=== PATIENT | female | born 1950 | race Caucasian/White ===

== ENCOUNTER 2018-04-14 05:18 | Outpatient (CLI) | payer BC, SELFPAY ==
--- NOTE | 2018-04-14 13:54 | DI.MAMMO_ITS ---
SYMPTOM/DIAGNOSIS: SCREENING, H/O MALIGNANT NEOPLASM OF BREAST, Z85.3 MAMMOGRAMS: Mammograms were interpreted according to the usual protocol including computer analysis with CAD system, tomosynthesis and C view imaging. The breasts are of moderate density. Note is made of a prior right lumpectomy. No mass or clumped microcalcification is identified in either breast. No change in appearance in comparison with examinations including March 2017. CONCLUSION: No specific evidence of malignancy at this time. Routine screening examinations are suggested at yearly intervals due to the history of breast carcinoma. Category 1, breast density category B. MQSA ASSESSMENT OF FINDINGS: Negative. Category 1. Patient will receive a letter notifying them of these results. BI-RADS category B. There are scattered areas of fibroglandular density.
== END 2018-04-14 05:38 ==
PROVIDERS: PCP Internal Medicine; Visit Provider Internal Medicine
DX: Z12.31 Encounter for screening mammogram for malignant neoplasm of breast (principal); Z85.3 Personal history of malignant neoplasm of breast
CPT/HCPCS: 77063; 77067

== ENCOUNTER 2018-07-28 11:43 | Outpatient (CLI) | payer BC, SELFPAY ==
[2018-07-28 13:09] LABS: Abs Immature Grans 0.01 k/cumm (0.0-0.09); Absolute Basophil Count 0.02 k/cumm (0.0-0.2); Absolute Eosinophil Count 0.23 k/cumm (0.0-0.7); Absolute Lymphocyte Count 0.99 k/cumm (1.2-3.4); Absolute Monocyte Count 0.45 k/cumm (0.11-0.7); Absolute Neutrophil Count 2.59 k/cumm (1.2-6.7); Basophils % 0.5; Eosinophils % 5.4; HCT 40.6 % (36.0-46.0); HGB 13.4 g/dL (12.0-15.5); Immature Grans % 0.2; Lymphocytes % 23.1; Mean Corpuscular Hemoglobin 33.1 pg (27.0-33.0); Mean Corpuscular Volume 100.2 fL (80-95); Mean Platelet Volume 9.6 fL (8.0-11.0); Monocytes % 10.5; Neutrophils % 60.3; Platelet Count 168 x1000/uL (130-400); RBC 4.05 m/cumm (4.00-5.20); RBC Distribution Width 13.3 % (11.7-14.6); White Blood Cell Count 4.29 k/cumm (4.4-10.8)
[2018-07-28 14:14] LABS: ALT 25 U/L (12-78); AST 19 U/L (15-37); Albumin 3.7 g/dL (3.4-5.0); Alkaline Phosphatase 123 U/L (46-116); Anion Gap 8.5 mmol/L (3-11); BUN 41 mg/dL (7-18); Bilirubin, Total 0.5 mg/dL (0.2-1.0); CO2 29.5 mmol/L (21.0-32.0); Calcium 9.6 mg/dL (8.5-10.1); Chloride 102 mmol/L (98-107); Estimated GFR 54.97 (mL/min/1.73m2); Glucose 93 mg/dL (70-100); Potassium 4.5 mmol/L (3.5-5.1); Sodium 140 mmol/L (136-145); Total Protein 6.8 g/dL (6.4-8.2)
[2018-07-28 14:30] LABS: Cholesterol 151 mg/dL (50-200); HDL Cholesterol 45 mg/dL (40-60); LDL CHOLESTEROL 88 mg/dL (<100); Triglyceride 92 mg/dL (30-150)
[2018-07-28 14:31] LABS: Hemoglobin A1C 5.9 % (4.5-6.2)
== END 2018-07-28 12:03 ==
PROVIDERS: Student in an Organized Health Care Education/Training Program; PCP Internal Medicine; Visit Provider Internal Medicine
DX: E11.9 Type 2 diabetes mellitus without complications (principal); I10 Essential (primary) hypertension; E78.5 Hyperlipidemia, unspecified; I25.10 Atherosclerotic heart disease of native coronary artery without angina pectoris
CPT/HCPCS: 36415; 80053; 80061; 83721; 83036; 85025

== ENCOUNTER 2018-11-11 00:41 | Outpatient (CLI) | payer BC, SELFPAY ==
--- NOTE | 2018-11-11 11:24 | DI.RAD_ITS ---
SYMPTOM/DIAGNOSIS: PAIN RT SHOULDER, R52 RIGHT SHOULDER: Five views. Comparison chest x-ray is 03/27/17 There is marked narrowing of the glenohumeral joint. Subchondral sclerosis and spurring is also noted at this level. There ae mild hypertrophic changes seen at the acromioclavicular joint. Soft tissue calcification is seen adjacent to the greater tuberosity consistent with calcific tendinitis. There are several calcific ossific densities inferior to the coracoid process. These may represent loose bodies. No acute fracture or dislocation is seen. 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
== END 2018-11-11 01:01 ==
PROVIDERS: PCP Internal Medicine; Visit Provider Internal Medicine
DX: M25.511 Pain in right shoulder (principal); M19.011 Primary osteoarthritis, right shoulder; M75.81 Other shoulder lesions, right shoulder
CPT/HCPCS: 73030

== ENCOUNTER 2018-12-08 00:46 | Outpatient (CLI) | payer BC, SELFPAY ==
--- NOTE | 2018-12-08 06:50 | MERGEMPI_ITS ---
*[facility]* *[facility]* [address] [place] [address] Myocardial Perfusion Imaging - SPECT Tim protocol Date of study: 12/08/2018 *PATIENT PRESENTATION* Height: 165.1cm (65in) Blood Pressure: Weight: 90.9kg (200lb) BSA: 2.08m^2 Ordering physician: Marcelo Francisco Impressions: - Test changed to pharmacological test because target heart rate was not achieved. - Study suggests small to moderate myocardial infarction, with minimal overall ischemia in the territory of the left anterior descending coronary artery. - Low risk of cardiac events. Summary: 1. Myocardial perfusion imaging: There is a moderate sized, moderately intense, fixed defect involving the apical anterior, apical lateral, and apical wall(s). This suggests moderate myocardial infarction in the distribution of the left anterior descending coronary artery. Overall ischemia: minimal. 2. The calculated left ventricular ejection fraction after stress: 49%. LV global systolic function is mildly reduced. Diffuse left ventricular regional motion abnormalities. 3. Stress ECG conclusions: The stress ECG is negative to less than 85% MPHR. 4. Stress: The target heart rate was not achieved. There is a normal resting blood pressure with an appropriate response to stress. Stress-induced atypical chest pain. Exercise capacity is average for age. 5. Treadmill exercise testing was performed using the Tim protocol. The patient exercised for 5 min 49 sec, to protocol stage 2, to a maximal work rate of 7mets. Exercise was terminated due to bilateral arm discomfort. Indication: R07.9, Appropriate Use Criteria: A (Appropriate). History: REASON FOR VISIT: PT HAS A HISTORY OF ACUTE UT OF INFERIOR WALL. PT REPORTS SHE HAD A UT IN 1999 AND AGAIN IN OCTOBER 2017. SHE STATES SHE HAS 3 CARDIAC STENTS AND HAS HAD AN ANGIOPLASTY. SHE STATES SHE IS HERE TODAY PER DR FRANCISCO BECAUSE OF SYMPTOMS OF BURNING CHEST PAINS ACROSS HER CHEST AND SHOULDERS AFTER WALKING FOR ABOUT 5 MINUTES ASSOCIATED WITH LIGHT HEADEDNESS AND VISION CHANGES. SYMPTOMS WITH SUBSIDE WITH REST. Risk factors: Family history of coronary artery disease. Hypertension. Diabetes mellitus. Obesity. Dyslipidemia. ALLERGIES: ADHESIVE. CODEINE. YENIFER INHIBITORS. MEDICATIONS: VITAMIN B COMPLEX 1 TAB DAILY. OMEPRAZOLE 40 MG DAILY PRN. OMEGA-3 FATTY ACIDS 1,000 MG DAILY. NAPROXEN 500 MG DAILY PRN. MVI/IRON MINERALS 1 TAB DAILY. METOPROLOL TARTRATE 12.5 MG BID. METFORMIN 500 MG DAILY. MAGNESIUM OXIDE 1,000 MG DAILY. LOSARTAN 25 MG DAILY. ISOSORBIDE MONONITRATE 30 MG DAILY. COLCHICINE 0.6 - 1.2 MG DIRECTED. CLOPIDOGREL 75 MG DAILY. CLOBETASOL 1 TOPICAL IDA DAILY. CITALOPRAM 20 MG DAILY. CHOLECALCIFEROL 1,000 UNITS DAILY. ATORVASTATIN 40 MG DAILY. ASPIRIN 81 MG DAILY. ASCORBIC ACID 500 MG DAILY. ALLOPURINOL 300 MG DAILY. Imaging Technique: Protocol: Tim protocol. Acquisition: Gated SPECT; 1 day - rest/stress. The patient was imaged in the supine position. Attenuation correction used. Isotope administration: - Rest. Tc[99m]-sestamibi. Dose: 10.3mCi. Injection time: 08:30 AM. Injection to stress time: 00:45. - Stress. Tc[99m]-sestamibi. Dose: 31mCi. Injection time: 10:05 AM. 1-2 min before end of exercise Baseline ECG: SINUS LIZZ CARDIA. HR 59 BPM. LOW VOLTAGE IN PRECORDIAL LEADS. Normal ECG. Stress protocol: + +---+ + + !Stage !HR !BP (mmHg) !Comments ! + +---+ + + !Baseline supine !59 !142/86 (105)! ! + +---+ + + !Baseline standing !68 !136/90 (105)! ! + +---+ + + !Stage I; 1.7mph, 10degrees; 3 min!106!148/86 (107)! ! + +---+ + + !Peak stress !122! ! ! + +---+ + + !Recovery; 1 min !87 !196/98 (131)! ! + +---+ + + !1 min !90 !162/70 (101)!Inject Regadenoson.! + +---+ + + !3 min !70 !162/80 (107)! ! + +---+ + + !5 min !71 !150/82 (105)! ! + +---+ + + * Stress results: Maximal heart rate during stress was 122bpm (81% of maximal predicted heart rate). The maximal predicted heart rate was 151bpm. The target heart rate was not achieved. There is a normal resting blood pressure with an appropriate response to stress. The rate-pressure product for the peak heart rate and blood pressure was 71133ny Hg/min. Stress-induced atypical chest pain. Exercise capacity is average for age. Stress ECG: TREADMILL PORTION OF STRESS TEST ENDED IN 4 MINUTES AND 49 SECONDS DUE TO 9 OUT OF 10 BILATERAL ARM DISCOMFORT BLUNTED HEART RATE RESPONSE TO EXERCISE. PT DID NOT MEET HER TARGET HR. NORMAL BLOOD PRESSURE RESPONSE TO EXERCISE MAX HR = 122 % OF TARGET = 80 RARE PVC. APPROXIMATE METS ACHIEVED = 7.04 STAGE 1 OF EXERCISE 5 OUT 10 BILATERAL SHOULDERS AND ARMS ACHE ASSOCIATED WITH LIGHTHEADEDNESS. STAGE 2 OF EXERCISE 9 OUT OF 10 CHEST ACHES WITH CONTINUED PAINS ACROSS SHOULDERS AND DOWN ARMS. TREADMILL STOPPED. NO SIGNIFICANT ST SEGMENT CHANGES AVERAGE FUNCTIONAL CAPACITY FOR EXERCISE. LEXISCAN TRANSITION TEST LEXICAN STRESS TEST ENDED AFTER 6 MINUTES. NORMAL HEART RATE AND BLOOD PRESSURE RESPONSE TO LEXISCAN INJECTION. NO ECTOPY 3 MINUTES POST LEXISCAN INJECTION PT REPORTED CHEST AND ARM DISCOMFORT RADIATING INTO HER SHOULDER BLADES, DESCRIBED A 9 OUT OF 10 ON PAIN SCALE. PT REPORTED IT BEING SIMILAR PAIN WHEN SHE HAD HER FIRST HEART ATTACK. 6 MINUTE POST LEXISCAN INJECTION CHEST, ARM AND SHOULDER BLADES DISCOMFORT SUBSIDED. NO SIGNIFICANT ST SEGMENT CHANGES. The stress ECG is negative to less than 85% MPHR. Myocardial perfusion: Imaging information: gated. The image quality was fair. Left ventricular size is normal. There is a moderate sized, moderately intense, fixed defect involving the apical anterior, apical lateral, and apical wall(s). This suggests moderate myocardial infarction in the distribution of the left anterior descending coronary artery. Overall ischemia: minimal. Ventricular Function (Wall Motion): The calculated left ventricular ejection fraction after stress: 49%. LV global systolic function is mildly reduced. Diffuse left ventricular regional motion abnormalities. Study data: Marcelo Francisco MD supervised and was readily available during the procedure. This study was interpreted by [facility]. Study status: Routine. Consent: The risks, benefits, and alternatives to the procedure were explained to the patient and informed consent was obtained. Procedure: Initial setup. A baseline ECG was recorded. Surface ECG leads and manual cuff blood pressure measurements were monitored. Heart sounds: Normal. Lung sounds: Normal. Treadmill exercise testing was performed using the Tim protocol. The patient exercised for 5 min 49 sec, to protocol stage 2, to a maximal work rate of 7mets. Exercise was terminated due to bilateral arm discomfort. Study completion: All catheters inserted during the procedure were removed. The patient tolerated the procedure well and was discharged from the lab. Discharge: The patient left the laboratory in stable condition. Birthdate: Patient birthdate: 1950. Sex: Gender: female. Study date: Study date: 12/08/2018. Study time: 00:01 AM. Signature Documentation: - The imaging portion of this study was interpreted by [facility] [employer] Marcelo Francisco MD. - The Stress ECG portion of this study was interpreted by Marcelo Francisco MD. Electronically signed by Marcelo Francisco 12/08/2018 15:35
[2018-12-08] MEDS: Regadenoson 0.4 MG/5 ML SYR IVP (12:00)
== END 2018-12-08 01:06 ==
PROVIDERS: PCP Internal Medicine; Visit Provider Student in an Organized Health Care Education/Training Program
DX: R07.9 Chest pain, unspecified (principal); I25.2 Old myocardial infarction; I10 Essential (primary) hypertension; E78.5 Hyperlipidemia, unspecified; E11.9 Type 2 diabetes mellitus without complications; Z79.84 Long term (current) use of oral hypoglycemic drugs; Z82.49 Family history of ischemic heart disease and other diseases of the circulatory system
CPT/HCPCS: 78452; 93017; J2785

== ENCOUNTER 2019-02-16 11:43 | Outpatient (CLI) | payer BC, SELFPAY ==
[2019-02-16 13:13] LABS: Calculated LDL 71 mg/dL; Cholesterol 136 mg/dL (<200); HDL Cholesterol 46 mg/dL (40-60); Magnesium 1.5 mg/dL (1.8-2.4); TSH (W/Ref FT4) 1.11 uIU/mL (0.36-3.74); Triglyceride 98 mg/dL (<150)
== END 2019-02-16 12:03 ==
PROVIDERS: PCP Internal Medicine; Visit Provider Internal Medicine
DX: I10 Essential (primary) hypertension (principal); E78.5 Hyperlipidemia, unspecified; E11.9 Type 2 diabetes mellitus without complications; R79.0 Abnormal level of blood mineral
CPT/HCPCS: 36415; 80061; 83735; 84443

== ENCOUNTER 2019-08-02 10:55 | Outpatient (CLI) | payer BC, SELFPAY ==
--- NOTE | 2019-08-02 10:15 | DI.RAD_ITS ---
EXAM: XR SHOULDER RT COMPLETE 2+V CLINICAL HISTORY: evaluate right shoulder. TECHNIQUE: 2D digital imaging was performed. COMPARISON: CR XR shoulder RT complete 2+V from 11/11/2018 FINDINGS: BONES: No acute fracture is present. The bones are normally mineralized. There again seen calcifica tions peer to the coracoid process which appears stable. JOINTS: Moderately severe narrowing of the glenohumeral joint is noted. There are stable degenerativ e changes seen at the acromioclavicular joint. Spurring of the inferior humeral head is noted. SOFT TISSUE: There is again seen calcification adjacent to the greater tuberosity consistent with mary cific tendinitis. IMPRESSION: Stable changes of the right shoulder. DATA REPOSITORY: RADIATION DOSE DELIVERED:
== END 2019-08-02 11:15 ==
PROVIDERS: PCP Nurse Practitioner; Referring Provider Nurse Practitioner; Visit Provider Student in an Organized Health Care Education/Training Program
DX: M25.511 Pain in right shoulder (principal); M75.31 Calcific tendinitis of right shoulder
CPT/HCPCS: 73030

== ENCOUNTER 2019-08-12 02:22 | Outpatient (CLI) | payer BC, SELFPAY ==
--- NOTE | 2019-08-12 06:30 | DI.MRI_ITS ---
EXAM: MR UPPER JOINT RT WO CLINICAL HISTORY: degenerative oa R SHOULDER,rt shoulder pain, calcific tendinitis,m25.511,m. TECHNIQUE: Multiplanar multisequence MRI was performed. COMPARISON: CR XR SHOULDER RT COMPLETE 2+V from 08/02/[address] UPPER EXTREMITY RT WO from 08/12/2019 FINDINGS: There is mild spurring at the undersurface of the acromion with some apparent impingement on the di stal supraspinatus muscle. There is a small amount of fluid in the subacromial subdeltoid deltoid bu rsa. There is a small glenohumeral joint effusion. Fluid and multiple loose bodies are seen in the subcoracoid bursa. There is thickening and slight edema in the supraspinatus tendon but no visible f ocal tear. A low signal focus is seen in the distal supraspinatus tendon, consistent with calcific t endinosis. The infraspinatus, subscapularis and teres minor tendons appear intact. The biceps tendo n is normally positioned. There is some fluid seen around the biceps tendon. There are severe degen erative changes of the glenohumeral joint. There is periarticular spurring and subchondral cyst form ation on both sides of the joint. Subchondral cysts are also seen in the superior humeral head. IMPRESSION: Severe degenerative changes of the glenohumeral joint. Loose bodies in the subcoracoid bursa. Supra spinatus calcific tendinosis. DATA REPOSITORY: CONTRAST MATERIAL: Noncontrast
--- NOTE | 2019-08-12 09:12 | DI.CT_ITS ---
EXAM: CT UPPER EXTREMITY RT WO CLINICAL HISTORY: Preoperative planning shoulder replacement,CALCIFIC TENDONITIS,ARTHRITIS, TECHNIQUE: A noncontrast examination was performed for purposes of surgical planning. Images were p erformed from above the clavicle through the mid humeral shaft. Coronal reconstructions were perform ed. COMPARISON: CR XR SHOULDER RT COMPLETE 2+V from 08/02/2019 FINDINGS: There are severe degenerative changes of the glenohumeral joint. There is prominent spurring as wel l as subchondral cyst formation and sclerosis. Subchondral cysts are also seen at the humeral head. Multiple loose bodies are noted in the subcoracoid bursa. There are mild degenerative changes of t he AC joint. Humeral head appears normally positioned. Mild fibrotic changes are seen in the lungs. IMPRESSION: Severe degenerative changes of the glenohumeral joint. Multiple loose bodies in the sub coracoid bu rsa. RADIATION DOSE DELIVERED: 666.64mGy.cm Total DLP
== END 2019-08-12 02:42 ==
PROVIDERS: PCP Nurse Practitioner; Visit Provider Student in an Organized Health Care Education/Training Program
DX: M25.511 Pain in right shoulder (principal); M75.31 Calcific tendinitis of right shoulder; M19.011 Primary osteoarthritis, right shoulder; M24.011 Loose body in right shoulder
CPT/HCPCS: 73200; 73221

== ENCOUNTER 2019-08-17 01:52 | Outpatient (CLI) | payer BC, SELFPAY ==
--- NOTE | 2019-08-17 13:00 | DI.MAMMO_ITS ---
EXAM: MG MAMMO SCREENING 60 MIN DUR CLINICAL HISTORY: breast cancer screening, personal h/o breast ca, Z12.39, Z85.3 TECHNIQUE: Mammograms were interpreted according to the usual protocol including computer analysis w [employer]ago CAD system, tomosynthesis and C-view imaging. COMPARISON: FINDINGS: Patient has history of right-sided breast carcinoma with lumpectomy. Breasts are of moderate density . There is post lumpectomy scarring on right. No new mass or clumped microcalcification identified in either breast, no change in appearance from prior studies including March 2018. IMPRESSION: No specific evidence of malignancy at this time. Routine screening examinations are suggested at yea rly intervals due to the history of breast carcinoma. BI-RADS Cat 1 - Negative: Breast Density - Category B - Scattered areas of fibroglandular density
== END 2019-08-17 02:12 ==
PROVIDERS: PCP Nurse Practitioner; Visit Provider Family Medicine
DX: Z12.31 Encounter for screening mammogram for malignant neoplasm of breast (principal); Z85.3 Personal history of malignant neoplasm of breast; Z98.890 Other specified postprocedural states
CPT/HCPCS: 77063; 77067

== ENCOUNTER 2019-08-17 02:44 | Outpatient (CLI) | payer BC, SELFPAY ==
[2019-08-17 14:28] LABS: Abs Immature Grans 0.02 k/cumm (0.0-0.09); Absolute Basophil Count 0.04 k/cumm (0.0-0.2); Absolute Eosinophil Count 0.28 k/cumm (0.0-0.7); Absolute Lymphocyte Count 1.38 k/cumm (1.2-3.4); Absolute Monocyte Count 0.43 k/cumm (0.11-0.7); Absolute Neutrophil Count 2.37 k/cumm (1.2-6.7); Basophils % 0.9; Eosinophils % 6.2; HCT 40.3 % (36.0-46.0); HGB 13.1 g/dL (12.0-15.5); Immature Grans % 0.4 %; Lymphocytes % 30.5; Mean Corp. HGB Concentration 32.5 g/dL (32.0-36.0); Mean Corpuscular Hemoglobin 32.9 pg (27.0-33.0); Mean Corpuscular Volume 101.3 fL (80-95); Mean Platelet Volume 9.4 fL (8.0-11.0); Monocytes % 9.5; Neutrophils % 52.5; Platelet Count 231 x1000/uL (130-400); RBC 3.98 m/cumm (4.00-5.20); RBC Distribution Width 12.7 % (11.7-14.6); White Blood Cell Count 4.52 k/cumm (4.4-10.8)
[2019-08-17 15:45] LABS: Anion Gap 5.4 mmol/L (3-11); BUN 34 mg/dL (7-18); CO2 28.6 mmol/L (21.0-32.0); Calcium 9.4 mg/dL (8.5-10.1); Chloride 103 mmol/L (98-107); Glucose 99 mg/dL (74-106); Magnesium 1.6 mg/dL (1.8-2.4); Potassium 4.6 mmol/L (3.5-5.1); Sodium 137 mmol/L (136-145)
== END 2019-08-17 03:04 ==
PROVIDERS: Nurse Practitioner Family; PCP Nurse Practitioner; Visit Provider Nurse Practitioner
DX: I10 Essential (primary) hypertension (principal); E11.9 Type 2 diabetes mellitus without complications; E79.0 Hyperuricemia without signs of inflammatory arthritis and tophaceous disease
CPT/HCPCS: 36415; 80048; 83735; 85025

== ENCOUNTER 2019-08-29 08:07 | Outpatient (CLI) | payer BC, SELFPAY ==
[2019-08-30 15:34] LABS: COVID-19 RT-PCR UVMMC Result Negative (Negative)
== END 2019-08-29 08:27 ==
PROVIDERS: PCP Nurse Practitioner; Visit Provider Student in an Organized Health Care Education/Training Program
DX: Z11.59 Encounter for screening for other viral diseases (principal); Z01.818 Encounter for other preprocedural examination
CPT/HCPCS: U0003

== ENCOUNTER 2019-09-01 07:25 | Inpatient (IN) | payer BC, MEDICARE, SELFPAY ==
[2019-09-01] VITALS (14 sets, daily range): BP systolic 96–145; BP diastolic 48–79; PULSE 62–69; RESP 13–19; TEMP 35.9–37.2; O2SAT 94–100
[2019-09-01] MEDS: Lactated Ringers 1,000 ML 100 ML IV (07:25)
--- NOTE | 2019-09-01 07:50 | W.PM.OP ---
Date of service: 09/01/19 Time of Service: 13:11 Operative Note Operative Note DATE OF PROCEDURE: 09/01/19 PRE-OP DIAGNOSIS: Right: 1. End-stage glenohumeral arthritis 2. Calcific tendinitis 3. Long head of the biceps tendinopathy POST-OP DIAGNOSIS: same PROCEDURE: Right: 1. Reverse total shoulder arthroplasty, CPT # [address]36 2. Open biceps tenodesis, CPT # 17937 SURGEON: Quinn Shine FREIGHT RATE CLERK: Christina Eaton ANESTHESIA: GETA and regional ESTIMATED BLOOD LOSS: 250 COMPLICATIONS: Other (Retained inferior glenoid locking screw without broken off screw head) Patient was transported to: PACU Patient's condition: stable Implants: Arthrex universal glenoid baseplate size small Arthrex universal glenoid central compression screw 6.5 20 mm Arthrex universal glenoid peripheral locking screw 24 mm superior and 36 mm inferior Arthrex universe reverse glenosphere size 36 +4 lateralized Arthrex universe reverse humeral stem 135 degrees size 6 Arthrex universe reverse suture cup size 36 posterior offset Arthrex universe reverse humeral insert size small +3 mm Arthrex universe reverse spacer size 36 +6 mm Indications: Please see complete medical record for details. Findings: Arthrex VIP templating showed [place] alignment 5.5 degrees retroversion, and 9.9 degrees inclination Severe glenohumeral arthritis complete loss articular cartilage. Significant calcific tendinitis with tendon degeneration subscapularis, supraspinatus, and to a lesser extent the infraspinatus. 50% posterior supraspinatus infraspinatus PASTA tear over bone cysts. Significant long head of the biceps tendon tenosynovitis, degeneration, and injection. Significant calcifications in the tendon and loose bodies anterior and posterior subscapularis. Procedure Description: In the operating room, general anesthesia was induced. The patient was positioned beachchair on the operating room table. All bony prominences were well-padded. Preoperative antibiotics 2 g cefazolin were administered. The right shoulder was prepped and draped in the usual sterile fashion for shoulder arthroplasty. The correct patient, procedure, and side of the procedure were all verified prior to incision. The deltopectoral approach was taken to the anterior shoulder. Care was taken to bluntly dissect the interval between the deltoid and pectoralis major muscles and to identify the cephalic vein within its fat stripe. The the vein was mobilized medially taking care to coagulate lateral muscle branches. Subdeltoid conjoined tendon space were freed of adhesions. The long head of the biceps tendon was identified just lateral to the lesser tuberosity. The uppermost margin of the pectoralis major tendon was released from the proximal humerus. The long head of the biceps tendon was tenodesed in situ using 2 sets of #2 FiberWire in a [id number] fashion securing it superior margin the pectoralis major tendon cuff. The biceps tendon was amputated and followed proximally to identify the rotator interval. A subscapularis peel was performed taking care to release the entirety tendon in a full-thickness fashion from superior to inferio and lateral to medial while bringing the arm gradually into external rotation. Care was taken to avoid the axillary nerve by only working on the bone inferiorly and medially. The subscapularis was tagged using #2 FiberWire in a Stefan-Arron fashion with stitch was placed superiorly, middle, and inferiorly at the medial footprint of the tendon. The stitches were used to confirm appropriate mobilization of the subscapularis tendon and gentle blunt dissection was used to free up the space anterior and posterior to it. The supraspinatus and infraspinatus were identified and debrided of calcium depositions and partial-thickness rotator cuff tear involving releasing the diseased anterior supraspinatus attachment. Appropriate coagulation was achieved especially inferiorly. The humeral head cut guide was assembled and used to confirm the planned freehand humeral head cut. The surgical neck was cut using an oscillating saw and the head preserved on the back table in case there was a need for future bone grafting. The proximal humeral protection plate was used to provisionally confirm suture cup and glenosphere size and then gently impacted over the bone cut. Attention was then turned to the glenoid and retractors were placed and a 360 degree release performed using the long head of the biceps remnant to remove soft tissue about the glenoid rim. Care was taken inferiorly to work on bone only between 5 and 7:00 and bluntly elevate tissues inferiorly. The glenoid was decorticated of residual cartilage. Once adequate exposure had been achieved, the VIP guide was placed on the glenoid and used to confirm placement and trajectory of the central guidepin. The guidepin was inserted through the appropriate glenoid baseplate sizing drill guide and advanced just through the far cortex ensuring adequate central screw length. The guidepin was assessed and felt to be appropriately correcting the patient's retroversion and inclination. The central post reamer followed by the surface reamer were then used to the appropriate depths. The baseplate was impacted onto the glenoid surface. It had a good fit and was appropriately compressed the glenoid surface. Testing the glenoid baseplate resulted in movement through the entire scapula. The tap was used for the central screw and also confirmed appropriate screw length. A compression screw was then placed centrally, fully seated, and tightened using the torque limiting handle. The central screw depth gauge was used to confirm appropriate central screw depth. The locking guide and drill were used to drill for a inferior baseplate locking screw directing the drill towards the scapular spine. There was excellent cortical resistance to the drill guide from 30 to 36 mm before there was relief likely resulting in the screw running along the scapular spine. This was felt to be good as it would provide excellent screw purchase and fixation strength of the baseplate. 36 mm screw was then inserted by hand using the appropriate torque limiting screwdriver. When the screw was nearly completely advanced met resistance. The screw was backed up and trajectory confirmed and then advanced again. It started meeting resistance where it appeared the locking threads of the head were engaging the socket bushing. Since it appeared to be the correct trajectory and appropriately engaging the locking mechanism the screw was advanced slowly. The torque on the screwdriver handle never passed 3 Nm. The cut off is 5 Nm. When the head was almost engaged it suddenly gave and the screwdriver was removed containing the head of the screw. The screw was broken off just deep to the glenoid baseplate. I paused to consider the options at this point in time. There is no easy way to remove the baseplate which was well impacted and seated on the glenoid. I considered removing the central screw and attempting remove the baseplate. The fixation of the glenoid baseplate had been excellent. I decided to place the superior peripheral screw and if this had good fixation strength would likely leave the broken screw in place. My reasoning was that removal of the baseplate was likely to cause undue trauma to the glenoid with bone loss about the central post and screw and possible glenoid or scapular neck fracture. Once the glenoid component was removed, I did not feel there would be a reliable way to remove the broken screw without causing additional trauma and lowering the chance of good fixation in the future. I figured that if I could get the baseplate off without injuring the glenoid or scapula, I would then be left with a broken screw flush in the inferior glenoid. In order to remove the screw we would have to patrick or core around it, and it had excellent fixation distally along the far cortex so would be extremely difficult to remove. Would likely have to remove a significant amount of bone about the screw throughout the majority of its path in order to get it out. That would leave us with replacing the glenoid baseplate and hoping for good fixation again however it would not gain us this inferior screw fixation as even with bone graft from the humeral head in this void there would not be screw cortical purchase after the methods required to remove it. The screw was likely broken just deep to the baseplate however, I felt there was a small chance the screw could still be providing rotational control of the baseplate if it was just prominent enough to engage the deepest aspect of this baseplate screw socket. So, I proceeded to drill and place the superior screw with excellent purchase and fixation in the far cortex. Considering the central post and screw impacted and compressive fixation coupled with a good superior locking screw, I felt this was adequate fixation for this patient. I decided not to remove the components and attempt the above described inferior broken screw removal. This complication was documented in the chart and will be discussed with the patient postoperatively. Next, the peripheral reamer was used about the baseplate. The preselected lateralized glenosphere was impacted to the baseplate. It was tested and found to have excellent fixation strength through the Rogers taper. Was inspected and found to have good fit and appropriate positioning. Attention was then turned back to the proximal humerus, which was delivered from the wound and maintained in external rotation. The protective plate was removed and reamers were started appropriately posterior to the bicipital groove taking care to maintain lateralized alignment so as to be straight in line with the humeral canal. The size 6 reamer had excellent chatter. The broaches were sequentially used to open the proximal humerus starting with a size 5 and going up to size 6 and sunk to the appropriate depth. The size 6 had excellent fit and rotational control the proximal humerus. An offset reamer guidepin was selected to place the humeral cup 2 mm posterior for the best fit. The appropriately sized suture cup reamer was used. The humeral trial cup was connected. Trialing was commenced with +6mm combination liner and spacer. The shoulder was reduced and taken through range of motion. It was felt to lack slightly in terms of tension on the conjoined tendon, deltoid, and stability. Trialing components were then used to build up +9 mm combination of liner and spacer. The shoulder was reduced again and felt to have excellent stability with improved appropriate tension of the deltoid and conjoined tendon. Range of motion was tested 90 degrees forward elevation, 60 degrees external rotation, internal rotation to the patient's side, and there is no appreciable notching with the arm in full adduction. This combination of implants was quite stable even with the patient completely paralyzed. The trial components were removed from the proximal humerus. The wound was copiously irrigated with normal saline. A small amount of vancomycin powder was distributed in the proximal humerus. A 2 mm drill was used to drill 2 drill holes in the bicipital groove for later subscapularis suture passage repair. The the proximal humeral stem and suture cup were assembled on the back table. They were brought over to the proximal humerus. The upper lower deep sutures from the subscapularis were passed through holes in the suture cup at their respective levels and then brought out laterally through the drill holes with a pair in the superior hole in the inferior suture through the inferior hole. Humerus and suture cup were appropriately impacted into the proximal humerus. There are test and found of excellent rotational control and fixation. Trial reduction for stability and range of motion was done again confirming the +9 mm combination liner and spacer. The trial spacer liner removed and the definitive spacer and liner connected. Shoulder was reduced and these final implants demonstrated excellent range of motion and stability. Fluoroscopy was brought in to confirm appropriate implants, reduction, alignment, and absence of fracture The shoulder was copiously irrigated with normal saline and irrisept. The remainder of the vancomycin powder was distributed deeply about the shoulder and through subcutaneous tissues. The arm was placed in 40 degrees of external rotation. The subscapularis was reduced and repaired over the implant to the lessor tuberosity using the pairs of deep and superficial #2 FiberWire sutures. The shoulder had excellent stability so the rotator interval was not closed. The arm was taken past 60 degrees of external rotation without any displacement of the subscapularis repair. The deltopectoral interval was loosely closed burying the cephalic vein with dyed 0-Vicryl. Subcutaneous tissue was closed using 2-0 Monocryl in a buried interrupted fashion. The skin was closed using 3-0 Monocryl in a buried subcuticular fashion. Skin glue was applied to the incision. A silver impregnated bandage was placed over the incision. The extremity was placed in a shoulder immobilizer. The patient awoke from anesthesia without complication and was taken to the recovery room in stable condition.
[2019-09-01] MEDS: ceFAZolin 2 GM/50 ML BAG IVPB (08:20)
[2019-09-01] MEDS: Tranexamic Acid 1,000 MG/10 ML VIAL 1000 MG (08:52)
[2019-09-01] MEDS: Bupivacaine LIPOSOME/PF 133 MG/10 ML VIAL IJ (09:00)
[2019-09-01] MEDS: Bupivacaine 0.5% Pres-Free 30 ML VIAL (09:00)
--- NOTE | 2019-09-01 12:17 | DI.RAD_ITS ---
EXAM: XR SHOULDER RT 1V CLINICAL HISTORY: broken screw. TECHNIQUE: 2D and realtime digital imaging was performed. COMPARISON: CR XR shoulder RT complete 2+V from 11/11/2018 CR XR SHOULDER RT COMPLETE 2+V from 08/02/2019 FINDINGS: Fluoroscopy was provided in the OR. A single hard copy image shows placement of a shoulder prosthes is with glenoid and humeral components. Please see procedure note for details. Fluoro time: 0.8 seconds RADIATION DOSE DELIVERED:
--- NOTE | 2019-09-01 14:05 | DI.RAD_ITS ---
EXAM: XR SHOULDER RT COMPLETE 2+V CLINICAL HISTORY: postop. TECHNIQUE: 2D digital imaging was performed. COMPARISON: CT CT UPPER EXTREMITY RT WO from 08/12/2019 FINDINGS: A portable exam was performed. The patient is status post placement of a shoulder prosthesis. The g lenoid and humeral components appear satisfactorily aligned. DATA REPOSITORY: RADIATION DOSE DELIVERED:
[2019-09-01] MEDS: Normal Saline 1,000 ML 100 ML IV (14:30)
--- NOTE | 2019-09-01 15:45 | PT.INIE ---
Date of service: 09/01/19 Time of Service: 15:45 PT Notes Visit Reasons: RIGHT SHOULDER ARTHRITIS S/P REPLACEMENT Physical Therapy Inpatient Initial Evaluation Date: 09/01/2019 Referring Doctor: Quinn Shine MD PT Orders: PT CONSULT: Status post Ortho surgery. Right reverse TSA; NWB, no extension, ER, or active IR Precautions: Fall. Standard. NWB on right LE. Movement precautions as above. Patient Profile/Admitting Diagnosis: Olivia is a 68-year-old female with end-stage glenohumeral arthritis, calcific tendinitis, and long head of biceps tendinopathy status post reverse total shoulder arthroplasty and open biceps tenodesis on postoperative day 1. PMHX: Medical History (Updated 08/15/19 @ 15:37 by Quinn Shine MD) Shoulder pain, right (Inactive) Surgical History Breast, Lumpectomy (~2004) Extraction of cataract left 2002; right 2003 Ligation of fallopian tube Social History/Home Situation: Olivia lives with in a private home with 3 steps to enter. She is independent with all aspects of ADLs with no use of assistive device nor adaptive equipment although for the past 9 months she states that she has been having a hard time managing her activities of daily living due to worsening right shoulder arthritis. Equipment Owned/DME: Single-point cane Subjective: Patient states that the right part of her chest and of the top of her right shoulder remain numb. She reported pain on the left arm at 3?4/10. She reports being lightheaded and complained about the room spinning in both the sitting and standing positions. She did not feel confident about walking with this PT and nurse Gem even with the use of jose j-walker as she feels that she is out of balance. She does not feel that she will be able to manage if she gets home tonight. Objective: General Observation: Patient seen resting in bed. Arm sling without abduction wedge seen unhooked on patient's right UE, pillow under her right elbow and arm. Mepilex Ag over surgical incision UE. IV in the left UE. Bilateral TEDS on. Mental Status: Patient appears drowsy but is oriented as to person, place, time, and purpose. Pain: Reports 3?4/10 pain in the right shoulder and arm especially with movement and positional changes. Vital Signs: Within normal limits as measured during PT consult by nurse Rabago ROM: Right Upper Extremity: Shoulder PROM will be measured in the next session. Elbow flexion WFL. Wrist flexion WFL. Opening and closing of hand WFL. Left Upper Extremity: Shoulder Flexion WFL. Shoulder abduction WFL. Elbow flexion WFL. Wrist flexion WFL. Opening and closing of hand WFL. Right Lower Extremity: Hip flexion WFL. Hip abduction WFL. Knee flexion WFL. Ankle dorsiflexion WFL. Ankle plantarflexion WFL. Left Lower Extremity: Hip flexion WFL. Hip abduction WFL. Knee flexion WFL. Ankle dorsiflexion WFL. Ankle plantarflexion WFL. Strength: Right Upper Extremity: Shoulder and Elbow MMT NT. Registered Radiation Therapist strong. Left Upper Extremity: Shoulder flexors 5/5. Shoulder abductors 5/5. Elbow flexors 5/5. Elbow extensors 5/5. Registered Radiation Therapist strong. Right Lower Extremity: Hip flexors 5/5. Hip abductors 5/5. Knee flexors 5/5. Knee extensors 5/5. Ankle dorsiflexors 5/5. Ankle plantarflexors 5/5. Left Lower Extremity:Hip flexors 5/5. Hip abductors 5/5. Knee flexors 5/5. Knee extensors 5/5. Ankle dorsiflexors 5/5. Ankle plantarflexors 5/5. Sensation: Right pectoral area and right shoulder remains numb at this time. Has sensation from the lower half of the right arm distally to the fingers. Bed Mobility/Transfers: Supine to sit minimal assist with HOB at 45 degrees Sit to supine minimal assist of 2 as patient reported dizziness Sit to stand minimal assist of 2 Stand to sit minimal assist of 2 Bed to chair NT due to report of dizziness and sense of disequilibrium Chair to bed NT NT due to report of dizziness and sense of disequilibrium Gait: Unable to perform due to vertiginous symptoms Balance: Static Sitting: Good Dynamic Sitting: Fair Static Standing: Poor Dynamic Standing: NT Special Tests: Mobility Limitations Standardized Measure [facility] AM-PAC 6 clicks Basic Mobility Inpatient Short Form: Raw Score: 11 CMS Score: 73% deficit Informed Consent/Education: Patient instructed in purpose of PT consult and plan of care. Assessment: Olivia demonstrates significant decline in mobility ADL performance due to vertiginous symptoms and post postoperative status. Olivia is a 68-year-old female with end-stage glenohumeral arthritis, calcific tendinitis, and long head of biceps tendinopathy status post reverse total shoulder arthroplasty and open biceps tenodesis on postoperative day 1. Patient presents with clinical signs and symptoms consistent with current/admitting diagnoses that have resulted to mobility limitations, gait instability, generalized weakness, and impairment of motor control as demonstrated by the following impairment level findings: 1. Decreased strength to right shoulder and elbow major muscle groups 2. Impaired sitting/standing balance 3. Impaired activity tolerance 4. Limitation of joint range of motion in right shoulder Impairments are contributing to the following functional limitations: 1. Dependent bed mobility skills 2. Increased dependence with transfers 3. Inability to safely ambulate without assistive device and physical assistance 4. Increase completion time for mobility ADL performance 5. Increased fall risk 6. Inability to negotiate steps alone safely Patient is assessed as a 6 2 moderate complexity based on the following: History: 68-year-old female with impairment level findings, functional limitations, and past medical history as indicated above Examination: Demonstrable impairment in strength, balance, and mobility level with underlying impairments and functional limitations as documented above Presentation:Evolving Decision Makin moderate complexity Goals: Goals X 3 days 1. Supine-Sit independent 2. Sit-Supine independent 3. Sit-Stand independent 4. Stand-Sit independent 5. Bed-Chair independent 6. Chair-Bed independent 7. Independent gait on level surface with use of least restrictive device for at least 300 feet without report of pain nor dyspnea 8. Independent stair negotiation while holding onto bilateral rails for at least 10 steps without report of pain nor dyspnea 9. Independent with home exercise program 10. Good static and dynamic standing balance/tolerance Plan of Care/Treatment Plan: 1-2x/day, 7 days/week x 1 week. Plan of care has been reviewed with the HOLISTIC HEALTH PRACTITIONER providing the service under Physical Therapy direction. Initiate Physical Therapy intervention for strengthening, bed mobility, transfers, gait, stairs, balance training, use of assistive device. PT intervention: Safe session today consisted of initial physical therapy evaluation as well as education and training on right abduction sling usage as well as on safe bed mobility and sit to stand performance with patient and with nurse Rabago. DISCHARGE RECOMMENDATIONS: Patient will benefit from home health PT services in order to progress mobility level using least restrictive assistive ambulatory device, assess home safety, identify additional equipment needs, and establish a functional maintenance program that will increase ability of patient to remain at home. TREATMENT CODE/TIME: 69150 x 25 minutes, [id number] x 13 minutes beginning at 15:45 PM. Thank you very much for this referral. Laurie Loera PT, DPT, CLT [facility] [place], [place]
[2019-09-01] MEDS: ceFAZolin 1 GM/50 ML BAG IVPB (17:25)
[2019-09-01] MEDS: Acetaminophen 500 MG TAB 1000 MG PO ×2 (17:45→20:43)
--- NOTE | 2019-09-01 18:33 | NUR.NOTE ---
Nursing Note: 1451 Arrived to Room 214 from PACU via bed. Verbal report from PACU nurse to Luis Alfredo Apple RN. Mounika Shaffer assumed care of patient at 1515.
[2019-09-01] MEDS: oxyCODONE 5 MG TAB PO (20:43)
[2019-09-01] MEDS: Atorvastatin 40 MG TAB PO (20:43)
[2019-09-01] MEDS: Metoprolol 50 MG TAB PO (20:44)
[2019-09-02] MEDS: ceFAZolin 1 GM/50 ML BAG IVPB ×2 (00:01→08:23)
[2019-09-02] MEDS: Normal Saline 1,000 ML 100 ML IV (00:02)
[2019-09-02 03:15] VITALS: BP 109/66; PULSE 70; RESP 16; TEMP 36; O2SAT 95
[2019-09-02 07:15] VITALS: BP 125/76; PULSE 65; RESP 18; TEMP 36.3; O2SAT 96
--- NOTE | 2019-09-02 07:27 | W.PM.DS.N ---
Date of service: 09/02/19 Time of Service: 07:17 DS: Diagnosis Discharge Diagnosis (1) Tendonitis of long head of biceps brachii of right shoulder: Status: Acute (2) Calcific shoulder tendinitis: Status: Acute (3) Degenerative arthritis of right shoulder region: Status: Chronic (4) Rotator cuff tear, right: Status: Acute Discharge Plan Disposition Patient Disposition: HOME Condition: Stable Discharge Details Reason For Visit: RIGHT SHOULDER ARTHRITIS S/P REPLACEMENT Admit Date/Time: 09/01/19 07:25 Admit Provider: Quinn Shine Attending Provider: Quinn Shine [facility]: Uncomplicated Home Meds and New Rx's Prescriptions: New naproxen 250 mg tablet 250 - 500 mg PO BID PRN (Reason: Moderate pain or swelling) Qty: 60 RF: 0 ondansetron 4 mg tablet,disintegrating 4 mg PO Q6H PRN (Reason: nausea or vomiting) Qty: 5 RF: 0 oxycodone 5 mg tablet 5 - 10 mg PO Q4H PRN (Reason: moderate to severe pain) Qty: 12 RF: 0 Continued colchicine [Colcrys] 0.6 mg tablet 0.6 - 1.2 mg PO as directed MDD 1.8mg Qty: 6 RF: 0 naproxen 500 mg tablet 500 mg PO DAILY PRN (Reason: pain) Qty: 90 RF: 2 citalopram 20 mg tablet 20 mg PO DAILY Qty: 90 RF: 3 losartan [Cozaar] 25 mg tablet 25 mg PO DAILY Qty: 90 RF: 3 turmeric root extract 500 mg capsule 500 mg PO DAILY RF: 0 vitamin B complex [B Complex-Vitamin B12] tablet 1 tab PO DAILY RF: 0 cholecalciferol (vitamin D3) 1,000 unit capsule 1,000 unit PO DAILY RF: 0 ascorbic acid (vitamin C) 500 mg capsule 500 mg PO DAILY RF: 0 omega-3 fatty acids 1,000 mg capsule 1,000 mg PO DAILY RF: 0 Complete Multivitamin tablet 1 tab PO DAILY RF: 0 magnesium oxide 500 MG capsule 1,000 mg PO DAILY RF: 0 aspirin 81 MG tablet,chewable 81 mg PO DAILY RF: 0 allopurinol 300 mg tablet 300 mg PO DAILY Qty: 90 RF: 3 atorvastatin 40 mg tablet 40 mg PO DAILY Qty: 90 RF: 3 clobetasol 0.05 % ointment 1 applic Topical bid PRN (Reason: lichen sclerosis) Qty: 30 RF: 2 metoprolol tartrate 50 mg tablet 50 mg PO BID Qty: 180 RF: 4 omeprazole 40 mg capsule,delayed release(DR/EC) 40 mg PO DAILY PRN (Reason: gerd) Qty: 90 RF: 0 metformin 500 mg tablet 500 mg PO DAILY Qty: 90 RF: 4 Discharge Instructions Additional Instructions: Surgery: Right reverse shoulder replacement with biceps tenodesis Activity: Non-weightbearing except for ADLs. A physical therapy prescription will be provided separately today. Rehab protocol: Postoperative Weeks 0-6 Immobilization: Sling may be removed for therapeutic exercises, bathing, and seated or in bed. May rest operative side on a pillow. Motion exercises: Pendulum exercises, elbow range- of-motion exercises, wrist kafnj-[id number]-[id number] exercises, and employment assistant strengthening Restrictions: No active internal rotation or backwards extension Postoperative Weeks 6-12 Immobilization: Sling discontinued Motion exercises: Shoulder passive range of motion, advancing to active-assisted range of motion, and finally active range of motion with a goal of forward flexion to 90? and external rotation of 20? Strengthening exercises: Light, resisted forward flexion, external rotation, and abduction limited to isometric exercises and therapy bands with concentric motions only. Continue employment assistant strengthening Restrictions: No resisted internal rotation or backwards extension. No scapular retraction exercises with therapy bands Postoperative Months 3-12 Motion exercises: Increase [id number]-wz-[id number] exercises to achieve full motion, with passive stretching at end ranges Strengthening: Begin resisted, internal rotation and backwards extension initially with isometric exercises advancing to light therapy bands and then weights. Advance other shoulder strengthening exercises to include the rotator cuff, deltoid, and scapular stabilizers. Advance to functional strengthening, including plyometric exercises and core strengthening. Prescriptions: Resume home dose Aspirin 81 mg daily Naproxen 250 mg take 1-2 every 12 hours with a meal as needed for moderate pain Oxycodone 5 mg take 1-2 every 4-6 hours as needed for severe pain You may use bhmi-qrs-pornfgq Tylenol (acetaminophen) as needed for mild pain. These pain medications may be taken all at once or in different combinations as needed. Ondansetron (Zofran) 4 mg take 1 orally dissolving tablet every 6 hours as needed for nausea or vomiting Also, recommend Colace (docusate) as a stool softener as surgery and pain medicine cause constipation. Dressings: Leave dressing in place until follow-up. Keep clean and dry at all times. No showers please. Follow-up: 10-[address] Shine Please call the office during business hours with any questions or concerns. Let us know right away if you develop any redness, drainage, fevers, chest pain, or trouble breathing. Do not drink alcohol or drive for at least 24 hours after anesthesia. Stand Alone Forms: Nursing Discharge Form Referrals: Quinn Shine MD [ [facility] STAFF PHYSICIAN] - Activity:: As above Equipment/Supplies:: Abduction sling Diet:: Diabetic, heart healthy Discharge Orders Discharge Orders: Discharge Order (Routine); Ordered 09/02/19 Ordered By: Quinn Shine DS: Summary Status at Discharge Functional status at discharge: independent ambulation Overall status at discharge: patient is progressing back to baseline Mental Status: mental status grossly normal Speech and Movement: speech and movement normal Mood: congruent mood Affect: normal affect Exam Narrative Exam Narrative: Awake, alert and oriented. Resting comfortably in hospital bed. Denies any chest pain fevers chills shortness of breath Breathing nonlabored Right shoulder dressing clean, dry, intact. Mild early bruising distal medial about bandage. No deformity. All compartments soft. 2+ radial pulse. Arm forearm fingers are warm and well-perfused Paresthesias distally through fingers, hand, and forearm. Dense sensory block arm and about shoulder. Able to demonstrate limited wrist, hand, and finger active range of motion. Psych Mental Status: mental status grossly normal Speech and Movement: speech and movement normal Mood: congruent mood Affect: normal affect DS: Data Vitals/I&O Vitals and I&O: Vital Signs Temperature 98.2 F 09/01/19 06:05 Pulse 68 09/01/19 06:05 Pulse Rhythm Regular 09/01/19 06:05 Respiratory Rate 16 09/01/19 06:05 Respiratory Depth Normal 09/01/19 06:05 Blood Pressure 105/65 09/01/19 06:05 Pulse Oximetry 97 09/01/19 06:05 Oxygen Delivery Method Room Air 09/01/19 06:05 Oxygen Flow Rate 0 09/01/19 06:05 Intake & Output 08/31/19 08/31/19 09/01/19 11:59 23:59 11:59 Weight 207 lb 0.225 oz PFSH Medical History Depression (Chronic) Diabetes mellitus (Chronic) Gout (Chronic) Hx of myocardial infarction (Acute) F/U with cardiology. Does have surgical clearance form Dr. Bowden Hypertension (Chronic) Shoulder pain, right (Inactive) Surgical History Breast, Lumpectomy (~2004) Extraction of cataract left 2002; right 2003 Ligation of fallopian tube S/P Achilles tendon repair (Acute) Family History Mother Hyperlipidemia Father Diabetes Heart disease Stroke Sister Neoplasm LUNG Brother No problems noted. Grandfather Rheumatic fever Grandfather Neoplasm PROSTATE Grandmother Stroke Grandmother Heart disease Son No problems noted. Son No problems noted. Social History Smoking/Tobacco Use Status: Former Tobacco Use Quit Date: 03/16/99 Tobacco: How many years used: 33 Alcohol Intake: current Alcohol Intake frequency: holidays/special occasions only Alcohol type: wine Drug use: Never Substance use type: does not use Current gender identity: female What type of physical activity do you participate in: none and independent ambulation Do you feel safe at home: Yes Do you feel safe in your relationship?: Yes
[2019-09-02] MEDS: Citalopram 20 MG TAB PO (08:19)
[2019-09-02] MEDS: Ascorbic Acid 500 MG TAB PO (08:19)
[2019-09-02] MEDS: Magnesium Oxide 400 MG TAB 1000 MG PO (08:19)
[2019-09-02] MEDS: Allopurinol 300 MG TAB PO (08:20)
[2019-09-02] MEDS: metFORMIN 500 MG TAB PO (08:20)
[2019-09-02] MEDS: Cholecalciferol (Vitamin D3) 1,000 UNIT TAB 1000 UNITS PO (08:20)
[2019-09-02] MEDS: Metoprolol 50 MG TAB PO (08:21)
[2019-09-02] MEDS: Multivitamin TAB 1 TAB PO (08:21)
[2019-09-02] MEDS: Acetaminophen 500 MG TAB 1000 MG PO (08:21)
[2019-09-02] MEDS: Vitamins B Comp w/C TAB 1 TAB PO (08:21)
[2019-09-02] MEDS: Losartan 25 MG TAB PO (08:21)
[2019-09-02] MEDS: Omega-3 Fatty Acids 1000 MG CAP PO (08:21)
--- NOTE | 2019-09-02 09:47 | PDOC.CMIN ---
- If Service Date Differs Date of service: 09/02/19 Time of Service: 14:22 Care Management Initial Assess REASON FOR HOSPITALIZATION:: (R) Achilles Tendon Repair PAST MEDICAL HISTORY/PAST SURGICAL HISTORY:: Arthritis-Osteo DJD, Cancer-breast, Depression, Diabetes-Insulin Dep, GERD, Gout, Hypertension, High Cholesterol, TN(s), Obesity, Renal Insufficency, Thyroid Goiter, previous chemo and radiation for Breast Ca, anal fissure, colonoscopy, cataract(s), EGD, Tubal ligation, right breast lumpectomy, ectopic 1978. PREVIOUS FUNCTIONAL STATUS/SOCIAL/FAMILY SUPPORTS:: Olivia resides in [facility] with her , Tad, her daughter and son in law and their children. She also has a son, Lucas who resides in [place], [place]. Olivia works in [employer] for [employer]. CURRENT FUNCTIONAL STATUS:: Olivia was sitting up in her chair prepared for discharge, she expressed interest in having VNA PT/OT, but Dr. Shine was not in support of this due to wanting her not to move her arm for the next few weeks. She shared no others concerns regarding discharge. ADVANCE DIRECTIVES:: None on file. Has patient been provided with info about the portal/API?: Yes Did the patient sign up for the portal?: Yes (Previously) CODE STATUS:: Full Code INSURANCE COVERAGE / FINANCIAL ISSUES:: [employer] CURRENT HOME/COMMUNITY SERVICES/EQUIPMENT:: Walker and knee scooter, no other services or equipment reported. PRIMARY CARE PHYSICIAN:: Linda Sanabria POTENTIAL DISCHARGE NEEDS:: Anticipate new orders for VNA/PT per PT recommendations, follow up appointment with PCP and surgical services. PATIENT/FAMILY EDUCATION NEEDS:: Discuss Ask me 3 questions to assure patient understanding of reason for hospitalization and knowledge of self care needs upon discharge. ANTICIPATED BARRIERS TO DISCHARGE:: None identified at this time. TRANSPORTATION:: Via private vehicle with family. PLAN:: Olivia will discharge home when ready per MD. She will follow up with her PCP, and surgical services as well as her plan of care as directed including activity restrictions and medication recommendations. Olivia will transport home via private vehicle with family.
--- NOTE | 2019-09-05 17:00 | INDS_ITS ---
Date of service: 09/02/19 PT Notes Visit Reasons: RIGHT SHOULDER ARTHRITIS S/P REPLACEMENT Inpatient Physical Therapy Discharge Summary Dates: 09/05/2019 Dates of Service: 09/01/2019 through 09/02/2019 Referring Doctor: Quinn Shine MD PT Orders: PT CONSULT: Status post Ortho surgery. Right reverse TSA; NWB, no extension, ER, or active IR Precautions: Fall. Standard. NWB on right LE. Movement precautions as above. Patient Profile/Admitting Diagnosis: Olivia is a 68-year-old female with end- stage glenohumeral arthritis, calcific tendinitis, and long head of biceps tendinopathy status post reverse total shoulder arthroplasty and open biceps tenodesis on postoperative day 2 day of discharge. PMHX: Medical History (Updated 08/15/19 @ 15:37 by Quinn Shine MD) Shoulder pain, right (Inactive) Surgical History Breast, Lumpectomy (~2004) Extraction of cataract left 2002; right 2003 Ligation of fallopian tube Social History/Home Situation: Olivia lives with in a private home with 3 steps to enter. She is independent with all aspects of ADLs with no use of assistive device nor adaptive equipment although for the past 9 months she states that she has been having a hard time managing her activities of daily living due to worsening right shoulder arthritis. Equipment Owned/DME: Single-point cane Subjective: Olivia requires assistance with dressing due to movement precautions precautions in the right UE. She needed the assistance of PT and nurse Sue to get dressed today. Had mild for acute vertiginous symptoms which required contact-guard to minimal assist during dressing activity. Objective: General Observation: Abduction sling to R UE Mental Status: Patient appears drowsy but is oriented as to person, place, time, and purpose. Pain: Reports 3?4/10 pain in the right shoulder and arm especially with movement and positional changes. ROM: Right Upper Extremity: Shoulder PROM NT. Elbow flexion WFL. Wrist flexion WFL. Opening and closing of hand WFL. Left Upper Extremity: Shoulder Flexion WFL. Shoulder abduction WFL. Elbow flexion WFL. Wrist flexion WFL. Opening and closing of hand WFL. Right Lower Extremity: Hip flexion WFL. Hip abduction WFL. Knee flexion WFL. Ankle dorsiflexion WFL. Ankle plantarflexion WFL. Left Lower Extremity: Hip flexion WFL. Hip abduction WFL. Knee flexion WFL. Ankle dorsiflexion WFL. Ankle plantarflexion WFL. Strength: Right Upper Extremity: Shoulder and Elbow MMT NT. Mixed Livestock Farm Worker strong. Left Upper Extremity: Shoulder flexors 5/5. Shoulder abductors 5/5. Elbow flexors 5/5. Elbow extensors 5/5. Mixed Livestock Farm Worker strong. Right Lower Extremity: Hip flexors 5/5. Hip abductors 5/5. Knee flexors 5/5. Knee extensors 5/5. Ankle dorsiflexors 5/5. Ankle plantarflexors 5/5. Left Lower Extremity:Hip flexors 5/5. Hip abductors 5/5. Knee flexors 5/5. Knee extensors 5/5. Ankle dorsiflexors 5/5. Ankle plantarflexors 5/5. Sensation: Right pectoral area and right shoulder remains numb at this time. Has sensation from the lower half of the right arm distally to the fingers. Bed Mobility/Transfers: Supine to sit minimal assist with HOB at 45 degrees Sit to supine minimal assist of 2 as patient reported dizziness Sit to stand minimal assist using single-point cane Stand to sit minimal assist using single-point cane Bed to chair NT minimal assist using single-point cane Chair to bed NT minimal assist using single-point Gait: 30 feet using single-point cane with contact-guard assist Balance: Static Sitting: Good Dynamic Sitting: Fair Static Standing: Fair Dynamic Standing: Fair Assessment: Olivia continues to demonstrate significant decline in mobility ADL performance due to vertiginous symptoms and post postoperative status. Olivia is a 68-year-old female with end-stage glenohumeral arthritis, calcific tendinitis, and long head of biceps tendinopathy status post reverse total shoulder arthroplasty and open biceps tenodesis on postoperative day 2 day of discharge. She will benefit from home health patient will therapy services to facilitate safe strategies for self care ADL completion. Patient continues to present with clinical signs and symptoms consistent with current/admitting diagnoses that have resulted to mobility limitations, gait instability, generalized weakness, and impairment of motor control as demonstrated by the following impairment level findings: 1. Decreased strength to right shoulder and elbow major muscle groups 2. Impaired sitting/standing balance 3. Impaired activity tolerance 4. Limitation of joint range of motion in right shoulder Impairments are continuing to contribute to the following functional limitations: 1. Dependent bed mobility skills 2. Increased dependence with transfers 3. Inability to safely ambulate without assistive device and physical assistance 4. Increase completion time for mobility ADL performance 5. Increased fall risk 6. Inability to negotiate steps alone safely Goals: Goals X 3 days 1. Supine-Sit independent NOT MET 2. Sit-Supine independent NOT MET 3. Sit-Stand independent NOT MET 4. Stand-Sit independent NOT MET 5. Bed-Chair independent NOT MET 6. Chair-Bed independent NOT MET 7. Independent gait on level surface with use of least restrictive device for at least 300 feet without report of pain nor dyspnea NOT MET 8. Independent stair negotiation while holding onto bilateral rails for at least 10 steps without report of pain nor dyspnea NOT MET 9. Independent with home exercise program NOT MET 10. Good static and dynamic standing balance/tolerance NOT MET DISCHARGE RECOMMENDATIONS: Patient will benefit from home health PT services in order to progress mobility level using least restrictive assistive ambulatory device, assess home safety, identify additional equipment needs, and establish a functional maintenance program that will increase ability of patient to remain at home. TREATMENT CODE/TIME: [id number] x 41 minutes fro 3 units. Thank you very much for this referral. Laurie Loera PT, DPT, CLT [facility] [place], [place]
== END 2019-09-02 11:09 | disposition home or self-care (01) | DRG 483 ==
LOC: SUR 13:49 → MS 14:22
PROVIDERS: Admitting Provider Student in an Organized Health Care Education/Training Program; PCP Nurse Practitioner; Visit Provider Student in an Organized Health Care Education/Training Program
PROC: 0RRJ00Z Replacement of Right Shoulder Joint with Reverse Ball and Socket Synthetic Substitute, Open Approach (ICD-10-PCS; CPT 23472; principal; 2019-09-01 07:30)
DX: M19.011 Primary osteoarthritis, right shoulder (principal); M75.21 Bicipital tendinitis, right shoulder; M75.31 Calcific tendinitis of right shoulder; M25.511 Pain in right shoulder; M75.111 Incomplete rotator cuff tear or rupture of right shoulder, not specified as traumatic; Z96.611 Presence of right artificial shoulder joint; G89.18 Other acute postprocedural pain; I10 Essential (primary) hypertension; E11.9 Type 2 diabetes mellitus without complications; F32.9 Major depressive disorder, single episode, unspecified; E78.5 Hyperlipidemia, unspecified; R42 Dizziness and giddiness
CPT/HCPCS: 23472; 76000; 76942; 97162; 97530; NC; 73020; 73030; J0690; J1100; J2001; J2250; J2370; J2405; J2704

== ENCOUNTER 2019-09-15 10:11 | Outpatient (CLI) | payer BC, MEDICARE, SELFPAY ==
[2019-09-15 12:44] LABS: Calculated LDL 89 mg/dL (<100); Cholesterol 153 mg/dL (<200); HDL Cholesterol 46 mg/dL (40-60); Triglyceride 93 mg/dL (<150)
== END 2019-09-15 10:31 ==
PROVIDERS: PCP Nurse Practitioner; Visit Provider Nurse Practitioner
DX: E78.5 Hyperlipidemia, unspecified (principal)
CPT/HCPCS: 36415; 80061

== ENCOUNTER 2019-10-05 02:40 | Outpatient (CLI) | payer BC, MEDICARE, SELFPAY ==
--- NOTE | 2019-10-05 08:30 | DI.US_ITS ---
EXAM: US THYROID CLINICAL HISTORY: f/u multi nodular goiter, e04.2. TECHNIQUE: Ultrasound thyroid performed using standard protocol. COMPARISON: US THYROID ULTRASOUND from 11/24/2013 FINDINGS: The right lobe measures 5.8 x 2.5 x 2.3 cm. The left lobe measures 5.6 x 2.1 x 2.9 cm. The isthmus measures 0.6 cm. There are multiple bilateral thyroid nodules present. There is a nodule in the mid right lobe measuring 3.3 x 2.3 x 2.6 cm. It is solid with internal echo genic foci. Internal blood flow is noted. It is hypoechoic with lobulated margins. This is consist ent with a TI-RADS 4. There is a nodule in the inferior pole of the left lobe measuring 2.5 x 2.1 x 2.3 cm. It is solid wi th internal blood flow. There is a question of extrathyroidal extension. It is hypoechoic without i nternal echogenic foci. This is consistent with a TI-RADS 5. IMPRESSION: Multinodular thyroid gland. Two suspicious nodules as described above. FNA is recommended for each of these described nodules. DATA REPOSITORY:
== END 2019-10-05 03:00 ==
PROVIDERS: PCP Nurse Practitioner; Visit Provider Nurse Practitioner
DX: E04.2 Nontoxic multinodular goiter (principal)
CPT/HCPCS: 76536

== ENCOUNTER 2019-11-02 15:48 | Outpatient (CLI) | payer BC, SELFPAY ==
--- NOTE | 2019-11-02 13:00 | DI.RAD_ITS ---
EXAM: XR SHOULDER RT COMPLETE 2+V INDICATION: right shoulder fu. COMPARISON: CR XR SHOULDER RT COMPLETE 2+V from 09/01/2019 TECHNIQUE: 2D digital imaging was performed. FINDINGS: There has been no change in the alignment of the shoulder prosthesis. No abnormal bony lucencies are seen. DATA REPOSITORY: RADIATION DOSE DELIVERED:
== END 2019-11-02 16:08 ==
PROVIDERS: PCP Nurse Practitioner; Referring Provider Nurse Practitioner; Visit Provider Student in an Organized Health Care Education/Training Program
DX: Z96.611 Presence of right artificial shoulder joint (principal)
CPT/HCPCS: 73030

== ENCOUNTER 2020-03-28 04:38 | Outpatient (CLI) | payer BC, SELFPAY ==
[2020-03-28 11:13] LABS: COMMENT (LAB VIEW ONLY) 145.21 mg/dL; Microalb ug/mg Crea 7.4 ug/mg Cr
== END 2020-03-28 04:58 ==
PROVIDERS: PCP Nurse Practitioner; Visit Provider Nurse Practitioner
DX: E11.9 Type 2 diabetes mellitus without complications (principal)
CPT/HCPCS: 82043; 82570

== ENCOUNTER 2020-08-29 11:47 | Outpatient (CLI) | payer BC, SELFPAY ==
--- NOTE | 2020-08-29 11:26 | DI.RAD_ITS ---
Exam(s) XR SHOULDER RT COMPLETE 2+V EXAM: XR SHOULDER RT COMPLETE 2+V CLINICAL HISTORY: f/u. TECHNIQUE: 2D digital imaging was performed. COMPARISON: CR XR SHOULDER RT COMPLETE 2+V from 11/02/2019 FINDINGS: There is stable position alignment of the components of the reverse prosthesis. No fracture or loose patt evident. No radiographic evidence of osteomyelitis. IMPRESSION: DATA REPOSITORY: RADIATION DOSE DELIVERED:
== END 2020-08-29 11:48 | disposition home or self-care (01) ==
LOC: DIORS 11:47
PROVIDERS: PCP Nurse Practitioner; Referring Provider Nurse Practitioner; Visit Provider Student in an Organized Health Care Education/Training Program
DX: Z96.611 Presence of right artificial shoulder joint (principal); Z47.1 Aftercare following joint replacement surgery
CPT/HCPCS: 73030

== ENCOUNTER 2020-10-10 03:23 | Outpatient (CLI) | payer BC, SELFPAY ==
[2020-10-10 11:35] LABS: CREATININE 1.1 mg/dL (0.55-1.02); Calculated LDL 68 mg/dL (<100); Cholesterol 126 mg/dL (<200); Estimated GFR 48.96 (mL/min/1.73m2); HDL Cholesterol 40 mg/dL (40-60); Triglyceride 93 mg/dL (<150)
== END 2020-10-10 03:24 | disposition home or self-care (01) ==
LOC: LBO 03:23
PROVIDERS: PCP Nurse Practitioner; Visit Provider Nurse Practitioner
DX: I10 Essential (primary) hypertension (principal); E11.9 Type 2 diabetes mellitus without complications; E78.5 Hyperlipidemia, unspecified
CPT/HCPCS: 36415; 80061; 82565; 83036; 84132

== ENCOUNTER 2020-11-07 01:30 | Outpatient (CLI) | payer SELFPAY ==
--- NOTE | 2020-11-07 | DI.US_ITS ---
Exam(s) US BREAST RT COMPLETE EXAM: US BREAST RT COMPLETE CLINICAL HISTORY: ABNORMAL FINDINGS ON MAMMO PER DR KENNEY. TECHNIQUE: Complete ultrasound of the right breast was performed including all 4 quadrants, the retr oareolar region, and the ipsilateral axilla. COMPARISON: Prior mammograms were reviewed. Today's diagnostic images were also reviewed. FINDINGS: Today's ultrasound reveals shadowing from the multiple macro calcifications seen on the mammogram. H owever, not able to demonstrate focal ultrasound abnormality to correspond to the finding located pos teriorly in the breast on today's mammogram. IMPRESSION: As above. Appropriate follow-up (as discussed by myself with the patient today) is repeat right [address] [facility] MAMMOGRAM in 3 months. BI-RADS Category 3 - 3 month - Probably Benign Finding: Recommend follow-up mammography in 3 months Breast Density - Category B - Scattered areas of fibroglandular density Breast density Category C or D implies that the patient has dense breast tissue. Dense breast tissue can make it harder to find cancer on a mammogram. Dense breast tissue is also associated with an incr eased risk of breast cancer. This information about the result of the mammogram report was provided to the patient to raise their awareness. Use this report when you speak with the patient about their risks for breast cancer, which includes their family history. At that time, you may recommend additional screening tests (Ultrasoun d or MRI) as these tests may add significant information. A negative radiographic report should not delay biopsy if a dominant or clinically suspicious mass is present. Up to ten percent of cancers are not identified on mammography. A negative report may reinforce clinical impression. Adenosis and dense breasts may obscure an underlying neoplasm. False positive reports average 6 to 10%. Patient will receive a letter notifying them of these results.
--- NOTE | 2020-11-07 08:45 | DI.MAMMO_ITS ---
Exam(s) MG MAMMO SCREENING 60 MIN DUR EXAM: MG MAMMO SCREENING 60 MIN DUR CLINICAL HISTORY: breast cancer screening, Z85.3, PERSONAL H/O BREAST CA. TECHNIQUE: Bilateral full field digital CC and MLO mammographic images were obtained with 3D tomosyn thesis and utilizing computer aided detection (CAD). Performed additional spot compression views of t he right breast. COMPARISON: Prior mammograms dating back to 2011, the most recent being August 2019.. This 69-year-old patient underwent right breast lumpectomy for limb malignancy in 2005 followed by ra diation chemotherapy. FINDINGS: No new significant radiograph findings in left breast. Asymmetric densities in the left breast are u nchanged from prior mammograms. In the right breast there is calcification architectural distortion at the lumpectomy site, unchanged from prior studies. For, more posteriorly there is a density more evident on prior mammograms and this was subjected to s pot compression views. This does not completely dissipate but is somewhat less than convincing for a true nodule when going through this area on 3D imaging. Skin there are no malignant-appearing micro calcification groups in this region or elsewhere in either breast Complete right breast ultrasound was performed following today's mammogram and did not reveal new sig nificant findings. IMPRESSION: 1. Stable benign-appearing left breast findings. 2. Postlumpectomy changes in the right breast which appears stable. Finding posteriorly in the right breast as described above without corresponding finding on ultrasound. Appropriate follow-up, as discussed by myself with the patient today, is repeat right breast MAMMOGR AM in 3 months. BI-RADS Category 3 - 3 month - Probably Benign Finding: Recommend follow-up mammography in 3 months Breast Density - Category B - Scattered areas of fibroglandular density Breast density Category C or D implies that the patient has dense breast tissue. Dense breast tissue can make it harder to find cancer on a mammogram. Dense breast tissue is also associated with an incr eased risk of breast cancer. This information about the result of the mammogram report was provided to the patient to raise their awareness. Use this report when you speak with the patient about their risks for breast cancer, which includes their family history. At that time, you may recommend additional screening tests (Ultrasoun d or MRI) as these tests may add significant information. A negative radiographic report should not delay biopsy if a dominant or clinically suspicious mass is present. Up to ten percent of cancers are not identified on mammography. A negative report may reinforce clinical impression. Adenosis and dense breasts may obscure an underlying neoplasm. False positive reports average 6 to 10%. Patient will receive a letter notifying them of these results.
== END 2020-11-07 01:50 ==
PROVIDERS: PCP Nurse Practitioner; Visit Provider Nurse Practitioner
DX: Z85.3 Personal history of malignant neoplasm of breast (principal); R92.8 Other abnormal and inconclusive findings on diagnostic imaging of breast; R92.1 Mammographic calcification found on diagnostic imaging of breast
CPT/HCPCS: 76642; 77063; 77067

== ENCOUNTER 2020-12-28 21:00 | Outpatient (REF) | payer MEDICARE, SELFPAY ==
[2020-12-28 19:30] LABS: Bilirubin Negative (Negative); Blood Negative (Negative); Clarity Clear (Clear); Glucose Negative (Negative); Ketones Negative (Negative); Leukocyte Esterase Negative (Negative); Nitrite Negative (Negative); Urobilinogen 0.2 EU/dL (Up TO 0.2); pH 6.5 (5-8)
[2020-12-28 21:32] LABS: Anion Gap 7.6 mmol/L (3-11); BUN 43 mg/dL (7-18); CO2 29.4 mmol/L (21.0-32.0); CREATININE 1.2 mg/dL (0.55-1.02); Calcium 9.7 mg/dL (8.5-10.1); Chloride 103 mmol/L (98-107); Estimated GFR 44.16 (mL/min/1.73m2); Glucose 112 mg/dL (74-106); Potassium 4.2 mmol/L (3.5-5.1); Sodium 140 mmol/L (136-145)
== END 2020-12-28 21:01 | disposition home or self-care (01) ==
LOC: LBN 21:00
PROVIDERS: PCP Nurse Practitioner; Visit Provider Nurse Practitioner Family
DX: R33.9 Retention of urine, unspecified (principal); N39.0 Urinary tract infection, site not specified
CPT/HCPCS: 80048; 81003

== ENCOUNTER 2021-01-09 11:09 | Emergency (ER) | payer MEDICARE, SELFPAY ==
[2021-01-09 11:18] VITALS: BP 152/88; PULSE 56; TEMP 36.5; O2SAT 98
[2021-01-09 11:23] LABS: Bilirubin Negative (Negative); Blood Negative (Negative); Clarity Clear (Clear); Glucose Negative (Negative); Ketones Negative (Negative); Leukocyte Esterase Negative (Negative); Nitrite Negative (Negative); Specific Gravity 1.025 (1.005-1.025); Urobilinogen 0.2 EU/dL (Up TO 0.2)
--- NOTE | 2021-01-09 11:30 | DI.US_ITS ---
Exam(s) US RENAL EXAM: US RENAL CLINICAL HISTORY: Urinary hesitancy, retention TECHNIQUE: Ultrasound of both kidneys performed using standard protocol. COMPARISON: No exams were available for comparison FINDINGS: RIGHT KIDNEY: Measures 9.8 cm in length. No cysts evident. Normal cortical thickness and corticomedullary different iation .No solid masses No intrarenal calculi nor hydronephrosis. LEFT KIDNEY: Measures 10 cm in length. No cysts evident. Normal cortical thickness and corticomedullary different iaion. No solids masses. No intrarenal calculi nor hydonephrosis. URINARY BLADDER: Prevoid volume is 115 cc Postvoid volume is 12 cc No evidence of bladder mass nor diverticuli. Ureterovesical jets: Neither visualized There is a 5.3 x 4.7 x 6.8 cm mass in left adnexa, partially cystic. Incidentally noted are gallstones IMPRESSION: 1. No significant ultrasound findings in the kidneys. 2. No obvious bladder mass but there is an abnormal 5 x 3 x 4.7 x 6.8 cm mass in left adnexa, most p robably originating from left ovary. This requires appropriate follow-up. 3. Gallstones also noted. DATA REPOSITORY:
--- NOTE | 2021-01-09 11:31 | W.ED.GENAD ---
Discharge Plan Disposition Patient Disposition: HOME Condition: Stable Discharge Details Clinical Impression: Complex cyst of left ovary, Urinary hesitancy Primary Care Provider: Linda Sanabria ED Provider: Raeann Cruz Home Meds and New Rx's Prescriptions: Continued naproxen 500 mg tablet 500 mg PO BID Qty: 60 RF: 0 atorvastatin 40 mg tablet 40 mg PO DAILY Qty: 90 RF: 3 allopurinol 300 mg tablet 300 mg PO DAILY Qty: 90 RF: 3 losartan [Cozaar] 25 mg tablet 25 mg PO DAILY Qty: 90 RF: 3 metformin 500 mg tablet 500 mg PO DAILY Qty: 90 RF: 4 vitamin B complex [B Complex-Vitamin B12] tablet 1 tab PO DAILY RF: 0 cholecalciferol (vitamin D3) 1,000 unit capsule 1,000 unit PO DAILY RF: 0 ascorbic acid (vitamin C) 500 mg capsule 500 mg PO DAILY RF: 0 omega-3 fatty acids 1,000 mg capsule 1,000 mg PO DAILY RF: 0 aspirin 81 MG tablet,chewable 81 mg PO DAILY RF: 0 omeprazole 40 mg capsule,delayed release(DR/EC) 40 mg PO DAILY PRN (Reason: gerd) Qty: 90 RF: 4 metoprolol tartrate 100 mg tablet 100 mg PO BID Qty: 180 RF: 3 No Action colchicine [Colcrys] 0.6 mg tablet 0.6 - 1.2 mg PO as directed MDD 1.8mg Qty: 6 RF: 0 turmeric root extract 500 mg capsule 500 mg PO DAILY RF: 0 citalopram 20 mg tablet 20 mg PO DAILY Qty: 90 RF: 3 Complete Multivitamin tablet 1 tab PO DAILY RF: 0 meclizine 25 mg tablet 25 mg PO TID PRN (Reason: dizziness) Qty: 30 RF: 0 clobetasol 0.05 % ointment 1 applic Topical bid PRN (Reason: lichen sclerosis) Qty: 30 RF: 2 magnesium oxide 500 mg capsule 500 mg PO DAILY RF: 0 Discharge Instructions Instructions: Ovarian Cyst (ED), Acute Urinary Retention in Women (ED) Additional Instructions: Ultrasound shows a left ovarian cyst please follow-up with your [facility] doctor or women's wellness doctor regarding this. Please continue to follow-up with urology as previously instructed by her primary care provider. There is no evidence for urinary tract infection at this time. Referrals: Raya Santiago DNP [NURSE PRACTITIONER] - 1 week Linda Sanabria NP [Primary Care Provider] - Verenice Chapa MD [ [facility] STAFF PHYSICIAN] - 1 week Discharge Data Discharge Date/Time-TO BE ENTERED AT DEPARTURE: 01/09/21 14:17 Medical Decision Making 70-year-old female presents the ER with chief complaint of urinary hesitancy, frequency and retention which has been ongoing for the last few weeks. Patient has been seen at [facility] and her primary care provider within the last couple of weeks. She denies any fever or chills, she reports urinating few dribbles and having to strain to empty her bladder. Upon arrival she did provide a urine sample and was able to urinate approximately 150 cc. She denies any abdominal pain, chest pain or dysuria. Had BMP ordered on December 28. She reports that she called her PCPs office this morning and they instructed her to come to the ER to have the ultrasound expedited. She has a past medical history of breast cancer, depression, gout, hypertension, GERD, diabetes. CBC CMP post void bladder scan normal saline IV 1 L bolus ordered to fill bladder prior to ultrasound. Renal ultrasound ordered. FINDINGS: RIGHT KIDNEY: Measures 9.8 cm in length. No cysts evident. Normal cortical thickness and corticomedullary differentiation .No solid masses No intrarenal calculi nor hydronephrosis. LEFT KIDNEY: Measures 10 cm in length. No cysts evident. Normal cortical thickness and corticomedullary differentiaion. No solids masses. No intrarenal calculi nor hydonephrosis. URINARY BLADDER: Prevoid volume is 115 cc Postvoid volume is 12 cc No evidence of bladder mass nor diverticuli. Ureterovesical jets: Neither visualized There is a 5.3 x 4.7 x 6.8 cm mass in left adnexa, partially cystic. Incidentally noted are gallstones IMPRESSION: 1. No significant ultrasound findings in the kidneys. 2. No obvious bladder mass but there is an abnormal 5 x 3 x 4.7 x 6.8 cm mass in left adnexa, most probably originating from left ovary. This requires appropriate follow-up. 3. Gallstones also noted. Lab results shows no leukocytosis, sodium 140 potassium 4.7 BUN 40 creatinine 1.1 GFR is 48.82 which is improved from previous readings. Ultrasound results as noted above. Will have patient follow-up with urology and women's wellness regarding left ovarian cyst. HPI General Mode of arrival: ambulatory. Date/Time Provider Initiated Documentation: 01/09/21 11:12. Limitations to Documentation: no limitations. Information obtained by: patient, RN notes reviewed and old records reviewed. HPI Narrative: 70-year-old female presents the ER with chief complaint of urinary hesitancy, frequency and retention which has been ongoing for the last few weeks. Patient has been seen at [facility] and her primary care provider within the last couple of weeks. She denies any fever or chills, she reports urinating few dribbles and having to strain to empty her bladder. Upon arrival she did provide a urine sample and was able to urinate approximately 150 cc. She denies any abdominal pain, chest pain or dysuria. Had BMP ordered on December 28. She reports that she called her PCPs office this morning and they instructed her to come to the ER to have the ultrasound expedited. She has a past medical history of breast cancer, depression, gout, hypertension, GERD, diabetes. Related Data Home Medications Medication Instructions Recorded Confirmed aspirin 81 mg PO DAILY tab-cap 11/11/17 01/04/21 ascorbic acid (vitamin C) 500 mg 500 mg PO DAILY cap 06/30/18 01/04/21 capsule cholecalciferol (vitamin D3) 25 1,000 unit PO DAILY 06/30/18 01/04/21 mcg (1,000 unit) capsule multivitamin,kz-ymak-gnisgaya 1 tab PO DAILY 06/30/18 01/04/21 omega-3 fatty acids 1,000 mg 1,000 mg PO DAILY 06/30/18 01/04/21 capsule vitamin B complex 1 tab PO DAILY 06/30/18 01/04/21 colchicine 0.6 mg tablet 0.6 - 1.2 mg PO as directed #6 11/03/18 01/04/21 tab-cap MDD 1.8mg clobetasol 0.05 % topical ointment 1 applic TOPICAL bid PRN #30 gm 12/13/18 01/04/21 turmeric root extract 500 mg 500 mg PO DAILY 07/21/19 01/04/21 capsule meclizine 25 mg tablet 25 mg PO TID PRN #30 tab 03/23/20 01/04/21 omeprazole 40 mg capsule,delayed 40 mg PO DAILY PRN #90 tab-cap 07/09/20 01/04/21 release magnesium oxide 500 mg capsule 500 mg PO DAILY cap 08/29/20 01/04/21 allopurinol 300 mg tablet 300 mg PO DAILY #90 tab 09/21/20 01/04/21 atorvastatin 40 mg tablet 40 mg PO DAILY #90 tab-cap 09/21/20 01/04/21 citalopram 20 mg tablet 20 mg PO DAILY #90 tab 09/21/20 01/04/21 losartan 25 mg tablet 25 mg PO DAILY #90 tab 09/21/20 01/04/21 metformin 500 mg tablet 500 mg PO DAILY #90 tab 09/21/20 01/04/21 naproxen 500 mg tablet 500 mg PO BID #60 tab 09/21/20 01/04/21 metoprolol tartrate 100 mg tablet 100 mg PO BID #180 tab 12/21/20 01/04/21 Previous Rx's Medication Instructions Recorded colchicine 0.6 mg tablet 0.6 - 1.2 mg PO as directed #6 11/03/18 tab-cap MDD 1.8mg clobetasol 0.05 % topical ointment 1 applic TOPICAL bid PRN #30 gm 12/13/18 meclizine 25 mg tablet 25 mg PO TID PRN #30 tab 03/23/20 omeprazole 40 mg capsule,delayed 40 mg PO DAILY PRN #90 tab-cap 07/09/20 release allopurinol 300 mg tablet 300 mg PO DAILY #90 tab 09/21/20 atorvastatin 40 mg tablet 40 mg PO DAILY #90 tab-cap 09/21/20 citalopram 20 mg tablet 20 mg PO DAILY #90 tab 09/21/20 losartan 25 mg tablet 25 mg PO DAILY #90 tab 09/21/20 metformin 500 mg tablet 500 mg PO DAILY #90 tab 09/21/20 naproxen 500 mg tablet 500 mg PO BID #60 tab 09/21/20 metoprolol tartrate 100 mg tablet 100 mg PO BID #180 tab 12/21/20 Allergies Allergy/AdvReac Type Severity Reaction Status Date / Time adhesive Allergy Verified 01/04/21 14:46 codeine AdvReac Intermediate VOMITING Verified 01/04/21 14:46 YENIFER Inhibitors AdvReac Unknown COUGH Verified 01/04/21 14:46 Fluroqueinolones AdvReac Intermediate Tendonitis Uncoded 01/04/21 14:46 General Stated Complaint: Urinary BRADEN: 4 Review of Systems All systems reviewed & are unremarkable except as noted in HPI and below Gastrointestinal Gastrointestinal: Denies abdominal pain Genitourinary Genitourinary: Reports urinary frequency, Reports difficulty voiding, Reports nocturia, Denies pelvic pain, Denies urinary incontinence, Reports urinary hesitancy and Reports other (Suprapubic abdominal pressure) [facility] Medical History Acute myocardial infarction of inferior wall 1999, 2017-stent placement Arthritis of right shoulder region 2019- replaced BPV (benign positional vertigo) Calcific shoulder tendinitis Depression Diabetes mellitus Gout Hx of myocardial infarction F/U with cardiology. Does have surgical clearance form Dr. Bowden Hypertension Localized primary osteoarthritis of lower leg (02/14/13) feet Loose body of right shoulder Low magnesium level Rash 11/2019 [place] [facility] [place]hen [place] Rotator cuff tear, right Shoulder pain, right Tendonitis of long head of biceps brachii of right shoulder Surgical History Breast, Lumpectomy (~2004) Extraction of cataract left 2002; right 2003 Ligation of fallopian tube S/P Achilles tendon repair Family History Mother , 81 Hyperlipidemia Father , 63 Diabetes Heart disease Stroke Sister , 54 Neoplasm LUNG Grandfather Rheumatic fever Grandfather Neoplasm PROSTATE Grandmother Stroke Grandmother Heart disease Son Alcohol abuse Heart disease Daughter No problems noted. Social History Smoking/Tobacco Use Status: Former Tobacco Use Quit Date: 03/16/99 Tobacco: How many years used: 33 Smoking risk assessment performed?: Yes Alcohol Intake: former Drug use: Never Substance use type: does not use Details: no alcohol for 30 years Caregiver/Support person: No Household members: spouse Do you need help understanding health information?: Rarely Pets and animals: Yes Pets and animals: cat(s) and dog(s) Sexually active: No Do you think of yourself as: straight/heterosexual Current gender identity: female What is your relationship status?: How often do you talk on the phone with friends or family?: once per week Do you belong to any clubs or organized social groups?: no Panel score (0-1 are the most socially isolated patients): 1 What type of physical activity do you participate in: none, walking and independent ambulation Duration: 15-30 minutes/day Frequency: 3-4 times per week Seatbelt use: always Drive intox or ride w/intox 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 Appears stated age. Normal body habitus. Head: Normocephalic, no trauma. Eyes: Pupils PERRL, Red reflex noted, EOM's intact. Eyelids symmetrical without lesions, discharge, or swelling. Chest: RRR, Normal S1, S2, distal pulses intact. Resp: Lungs clear to auscultation bilaterally, no wheezes, rales, or rhonchi. Abdomen: Soft, non-distended, Normoactive bowel sounds all 4 quads. No CVA tenderness to palpation. Musculoskeletal: Normal gait, 5/5 strength to all four extremities. No midline T or L-spine tenderness no crepitus no step-off with palpation. Skin: No suspicious rashes or lesions. Capillary refill less than 2 sec. Neurologic: Cranial nerves II-XII intact. Alert and oriented x 3. Motor: No deficits noted. Sensory: Intact bilaterally all 4 extremities. Reflexes: Tibeo patellar DTR's intact bilaterally. Hematologic/Lymphatic: No ecchymosis, no lymphadenopathy. Course Vital Signs Vital signs: Vital Signs Temperature 36.5 C 01/09/21 11:18 Pulse 56 L 01/09/21 11:18 Blood Pressure 152/88 H 01/09/21 11:18 Pulse Oximetry 98 01/09/21 11:18 Temperature 36.5 C 01/09/21 11:18 Temperature Source Temporal Artery Scan 01/09/21 11:18 Pulse 56 L 01/09/21 11:18 Blood Pressure 152/88 H 01/09/21 11:18 Blood Pressure Position Sitting 01/09/21 11:18 Pulse Oximetry 98 01/09/21 11:18 Oxygen Delivery Method Room Air 01/09/21 11:18 Oxygen Flow Rate 0 01/09/21 11:18 Pain Level 0 01/09/21 11:29 Lab/Test Results Lab/Test Results: Laboratory Tests Range/Units 01/09/21 11:15 Urine Color (Yellow) Yellow Urine Clarity (Clear) Clear Urine pH (5-8) 7.0 Ur Specific [place] (1.005-1.025) 1.025 Urine Protein (Negative) mg/dL Negative Urine Ketones (Negative) mg/dL Negative Urine Blood (Negative) Negative Urine Nitrite (Negative) Negative Urine Bilirubin (Negative) Negative Urine Urobilinogen (Up TO 0.2) EU/dL 0.2 Ur Leukocyte Esterase (Negative) Negative Urine Glucose (Negative) mg/dL Negative
[2021-01-09] MEDS: Normal Saline 1,000 ML 1000 ML IV (11:50)
[2021-01-09 12:00] LABS: Absolute Basophil Count 0.04 10^3/uL (0.0-0.2); Absolute Eosinophil Count 0.22 10^3/uL (0.0-0.7); Absolute Lymphocyte Count 1.19 10^3/uL (1.2-3.4); Absolute Monocyte Count 0.44 10^3/uL (0.1-0.8); Absolute Neutrophil Count 2.94 10^3/uL (1.2-6.7); Basophils % 0.8; Eosinophils % 4.6; HCT 37.8 % (36.0-46.0); HGB 12.4 g/dL (11.2-15.7); Lymphocytes % 24.6; MCH 32.9 pg (27.0-33.0); MCHC 32.8 % (32.0-36.0); MCV 100.3 fL (80-95); MPV 9.2 fL (8.0-11.0); Monocytes % 9.1; Neutrophils % 60.9; Nucleated RBC 0 %; Platelet Count 167 10^3/uL (130-400); RBC 3.77 10^6/uL (3.93-5.22); RDW 13.2 % (11.7-14.6); RDW-SD 49.1 fL; WBC 4.83 10^3/uL (4.4-10.8)
[2021-01-09 12:15] LABS: ALT 24 U/L (14-59); AST 24 U/L (15-37); Albumin 3.5 g/dL (3.4-5.0); Alkaline Phosphatase 119 U/L (46-116); Anion Gap 8.9 mmol/L (3-11); BUN 40 mg/dL (7-18); Bilirubin, Total 0.6 mg/dL (0.2-1.0); CO2 27.1 mmol/L (21.0-32.0); CREATININE 1.1 mg/dL (0.55-1.02); Calcium 9.6 mg/dL (8.5-10.1); Chloride 104 mmol/L (98-107); Estimated GFR 48.82 (mL/min/1.73m2); Glucose 102 mg/dL (74-106); Potassium 4.7 mmol/L (3.5-5.1); Sodium 140 mmol/L (136-145)
[2021-01-09 13:42] VITALS: BP 145/71; PULSE 57; RESP 16; TEMP 36.1; O2SAT 99
--- NOTE | 2021-01-09 17:56 | NUR.NOTE ---
referral to urology and womans wellness.
== END 2021-01-09 14:17 | disposition home or self-care (01) ==
PROVIDERS: Emergency Provider Registered Nurse Emergency; PCP Nurse Practitioner
DX: N83.292 Other ovarian cyst, left side (principal); R39.11 Hesitancy of micturition
CPT/HCPCS: 36415; 76770; 80053; 96360; 99284; 81003; 85025; J3490

== ENCOUNTER → 2021-01-14 10:40 | Outpatient (BNVA) | payer MEDICARE, SELFPAY | PROVIDERS: PCP Nurse Practitioner; Referring Provider Nurse Practitioner; Visit Provider Urology | DX: R39.11 Hesitancy of micturition (principal); E11.9 Type 2 diabetes mellitus without complications; R19.00 Intra-abdominal and pelvic swelling, mass and lump, unspecified site | CPT/HCPCS: 99214 ==

== ENCOUNTER 2021-01-18 03:41 | Outpatient (CLI) | payer MEDICARE, SELFPAY ==
[2021-01-21 09:26] LABS: CA 125 15 U/mL (<30)
== END 2021-01-18 03:42 | disposition home or self-care (01) ==
LOC: LBO 03:41
PROVIDERS: PCP Nurse Practitioner; Visit Provider Obstetrics & Gynecology Gynecology
DX: N83.292 Other ovarian cyst, left side (principal)
CPT/HCPCS: 36415; 86304

== ENCOUNTER 2021-01-23 01:02 | Outpatient (CLI) | payer MEDICARE, SELFPAY ==
--- NOTE | 2021-01-23 07:00 | DI.US_ITS ---
Exam(s) US RENAL PELVIC TRANSVAGINAL EXAM: US RENAL PELVIC TRANSVAGINAL CLINICAL HISTORY: SUPRAPUBIC PRESSURE,URINARY RETENTION,PELVIC PAIN,R10.2,R33.9 TECHNIQUE: Ultrasound of the pelvis was performed both transabdominal and transvaginal. COMPARISON: US US RENAL from 01/09/2021 FINDINGS: Both transabdominal and transvaginal pelvic ultrasound examinations were performed. Recent renal ult rasound examination was reviewed. Findings are abnormal and somewhat difficult to interpret. Urinary bladder is being compressed by masses. What appears to be probably the you would is signific antly enlarged with what appears to be large fibroids and possibly very thickened endometrium. In ad dition, there is an adnexal mass which measures approximately 5.5 x 4.5 cm. Possible 2nd adnexal mas s measuring 7 x 4 cm. No free fluid evident. IMPRESSION: 1. Significant pathology as described above. Contrast infused CT scan of the abdomen-pelvis is recom mended to help clarify the above abnormal findings on this ultrasound examination 2. There is no free fluid evident pelvis DATA REPOSITORY:
== END 2021-01-23 01:22 ==
PROVIDERS: PCP Nurse Practitioner; Visit Provider Nurse Practitioner Family
DX: R10.9 Unspecified abdominal pain (principal); R33.9 Retention of urine, unspecified; D25.9 Leiomyoma of uterus, unspecified; N85.2 Hypertrophy of uterus; R19.09 Other intra-abdominal and pelvic swelling, mass and lump
CPT/HCPCS: 76770; 76830; 76856

== ENCOUNTER 2021-01-31 14:22 | Emergency (ER) | payer MEDICARE, SELFPAY ==
[2021-01-31 14:28] VITALS: BP 135/95; PULSE 64; RESP 16; TEMP 36.7; O2SAT 98
--- NOTE | 2021-01-31 16:18 | ED.GENADUL_ITS ---
Discharge Plan Disposition Patient Disposition: HOME Condition: Stable Discharge Details Clinical Impression: Pelvic mass, Urinary retention Primary Care Provider: Linda Sanabria ED Provider: Garo Jack Home Meds and New Rx's Prescriptions: Continued turmeric root extract 500 mg capsule 500 mg PO DAILY RF: 0 atorvastatin 40 mg tablet 40 mg PO DAILY Qty: 90 RF: 3 allopurinol 300 mg tablet 300 mg PO DAILY Qty: 90 RF: 3 citalopram 20 mg tablet 20 mg PO DAILY Qty: 90 RF: 3 losartan [Cozaar] 25 mg tablet 25 mg PO DAILY Qty: 90 RF: 3 vitamin B complex [B Complex-Vitamin B12] tablet 1 tab PO DAILY RF: 0 cholecalciferol (vitamin D3) 1,000 unit capsule 1,000 unit PO DAILY RF: 0 ascorbic acid (vitamin C) 500 mg capsule 500 mg PO DAILY RF: 0 omega-3 fatty acids 1,000 mg capsule 1,000 mg PO DAILY RF: 0 Complete Multivitamin tablet 1 tab PO DAILY RF: 0 meclizine 25 mg tablet 25 mg PO TID PRN (Reason: dizziness) Qty: 30 RF: 0 aspirin 81 MG tablet,chewable 81 mg PO DAILY RF: 0 clobetasol 0.05 % ointment 1 applic Topical bid PRN (Reason: lichen sclerosis) Qty: 30 RF: 2 magnesium oxide 500 mg capsule 500 mg PO DAILY RF: 0 metoprolol tartrate 100 mg tablet 100 mg PO BID Qty: 180 RF: 3 metformin 500 mg tablet 500 mg PO HS RF: 0 omeprazole 40 mg capsule,delayed release(DR/EC) 40 mg PO HS RF: 0 colchicine [Colcrys] 0.6 mg tablet 0.6 - 1.2 mg PO as directed MDD 1.8mg PRNRF: 0 naproxen 500 mg tablet 250 - 500 mg PO BID PRNRF: 0 Discharge Instructions Instructions: Dias Catheter Placement and Care (ED) Additional Instructions: Your CT reveals a complex pelvic mass which is extremely concerning for malignan cy. This is likely causing a blockage making urinating very difficult. Dias catheter placed in your bladder drained nicely. You will leave this evening with a Dias catheter in place. As we discussed, you will need very prompt outpatient follow-up for further investigation of this pelvic mass. I have placed you on the care management list to help expedite your outpatient care through both your primary care and her [facility] team. Please watch for new or worsening symptoms and return to the ER for any concerns. Medical Decision Making This is a 70-year-old female who presents today with urinary retention since last night, lower abdominal pressure. This has been ongoing intermittently for approximately 6 weeks, has been seen by her primary care provider, urology, and [facility]. Subsequently had an ultrasound which revealed a pelvic mass, scheduled to have CT imaging performed in the next 7-14 days. Patient is now presenting with urinary retention. Bladder scan performed, over 700 cc, Dias catheter placed, and over 1100 cc drained. Patient reports much improvement of her overall pelvic pressure. Given the concerning mass on ultrasound, will obtain laboratory values, urinalysis, and obtain CT imaging. I confirmed with radiology that her scheduled appointment is a CT of her abdomen and pelvis with both IV and p.o. contrast, I will order the same. Laboratory values do not reveal any obvious emergent process. Upon reevaluation patient is resting comfortably, asymptomatic, awaiting CT imaging. Tolerating p.o. oral contrast without difficulty. CT imaging reveals a complex pelvic mass, unclear origin nation from either the endometrium or myometrium. Additional lesion more anterior aspect between the bladder and uterus. Mild surrounding edema. Mild bilateral hydronephrosis which could be due to reflux if the urinary bladder was recently decompressed, which it was, or to mass-effect of the UVJ bilaterally, malignant involvement of the posterior bladder wall cannot be excluded in this study. I had a lengthy discussion with the patient regarding her unfortunate CT results. Patient reports that she is currently comfortable, asymptomatic with a Dias catheter in place. Plan is to discharge the patient with the Dias catheter in place, patient was educated with Dias catheter care. I have placed her on the care management list to help expedite outpatient primary care and [facility] follow-up regarding her concerning pelvic mass. I will CC this note to both of those providers as well. Strict discharge and return precautions provided. This documentation was generated using [employer] system, please disregard any oddities of phrase or misspellings. Medical Records Medical records reviewed: Yes I reviewed the patient's medical records. Imaging Data Radiologic Study: Attestation: I personally reviewed and interpreted this imaging study as follows: Imaging: CT Scan Radiologist's impression: PROCEDURE INFORMATION: Exam: CT Abdomen And Pelvis With Contrast Exam date and time: 01/31/2021 16:34 Age: 70 years old Clinical indication: Other: Complex mass on US, diff urinating TECHNIQUE: Imaging protocol: Computed tomography of the abdomen and pelvis with contrast. COMPARISON: US RENAL PELVIC TRANSVAGINAL 01/23/2021 10:36 FINDINGS: Lungs: Micro atelectasis versus early interstitial disease in the lung bases. Liver: No hepatic masses. Gallbladder and bile ducts: Cholelithiasis. No significant biliary dilation or radiopaque stones in the biliary tree. Pancreas: No ductal dilation. No masses. Spleen: No splenomegaly or focal lesions. Adrenal glands: No mass. Kidneys and ureters: Mild bilateral hydronephrosis. No renal masses Stomach and bowel: Colonic diverticulosis without diverticulitis. No focal pathology in the small bowel. Appendix: No evidence of appendicitis. Intraperitoneal space: Small cul-de-sac free fluid. Vasculature: Atherosclerosis. Lymph nodes: No significantly enlarged lymph nodes. Urinary bladder: Dias catheter in a decompressed urinary bladder. Urinary bladder displaced to the right by the enlarged uterus. MAYANK TORRES Preliminary Radiology Report LICENSED PRACTICAL NURSE (QA) DISCREPANCY? If there is a discrepancy between the preliminary and final interpretation, please notify [facility] via [email or web address]. If you do not have access to our QA portal, call our QA team at [phone] CONFIDENTIALITY STATEMENT This report is intended only for the use of the referring physician, and only in accordance with law, If you received this in error, call [phone] Page 2 of 2 Reproductive: Complex pelvic mass. A dominant component appears almost certainly to be located within the uterus, approximately 12 by 9 by 8 cm. Unclear if this originated in the endometrium or myometrium. An additional lesion which is located more anteriorly interspersed between the bladder and the uterus, 8 x 5 by 8 cm, could be adnexal or could be related to the myometrium. Mild surrounding edema. Bones/joints: Degenerative changes in the spine. No acute fracture or subluxation. Soft tissues: No suspicious lesions. IMPRESSION: 1. Complex pelvic mass, favor originating from the uterus rather than the adnexa as described and concerning for malignancy. 2. Mild bilateral hydronephrosis; could be due to reflux if the urinary bladder was recently decompressed or to mass effect at the UVJ bilaterally. Malignant involvement of the posterior bladder wall cannot be excluded on this study. 3. Incidental findings as described. Lab Data Lab results reviewed: Yes I reviewed the patient's lab results. Labs: Laboratory Tests Range/Units 01/31/21 01/31/21 01/31/21 17:02 17:02 17:05 WBC (4.4-10.8) 10^3/uL 5.57 RBC (3.93-5.22) 10^6/uL 3.87 L Hgb (11.2-15.7) g/dL 12.7 Hct (36.0-46.0) % 38.8 MCV (80-95) fL 100.3 H MCH (27.0-33.0) pg 32.8 MCHC (32.0-36.0) % 32.7 RDW (11.7-14.6) % 13.5 Plt Count (130-400) 10^3/uL 163 MPV (8.0-11.0) fL 9.7 Immature Gran % 0.2 Neutrophils % 64.5 Lymphocytes % 19.7 Monocytes % 10.2 Eosinophils % 4.5 Basophils % 0.9 Nucleated RBC % % 0 Absolute Neutrophils (1.2-6.7) 10^3/uL 3.59 Absolute Lymphocytes (1.2-3.4) 10^3/uL 1.10 L Absolute Monocytes (0.1-0.8) 10^3/uL 0.57 Absolute Eosinophils (0.0-0.7) 10^3/uL 0.25 Absolute Basophils (0.0-0.2) 10^3/uL 0.05 Sodium (136-145) mmol/L 144 Potassium (3.5-5.1) mmol/L 4.5 Chloride (98-107) mmol/L 107 Carbon Dioxide (21.0-32.0) mmol/L 27.9 Anion Gap (3-11) mmol/L 9.1 BUN (7-18) mg/dL 31 H Creatinine (0.55-1.02) mg/dL 0.9 Estimated GFR/1.73 m2 (mL/min/1.73m2) >= 60.00 Glucose (74-106) mg/dL 87 Calcium (8.5-10.1) mg/dL 9.7 Total Bilirubin (0.2-1.0) mg/dL 0.7 AST (15-37) U/L 23 ALT (14-59) U/L 23 Alkaline Phosphatase (46-116) U/L 114 Total Protein (6.4-8.2) g/dL 7.2 Albumin (3.4-5.0) g/dL 3.7 Lipase (73-393) U/L 127 Urine Color (Yellow) Yellow Urine Clarity (Clear) Clear Urine pH (5-8) 6.5 Ur Specific [place] (1.005-1.025) >= 1.030 H Urine Protein (Negative) mg/dL Negative Urine Ketones (Negative) mg/dL Negative Urine Blood (Negative) Negative Urine Nitrite (Negative) Negative Urine Bilirubin (Negative) Negative Urine Urobilinogen (Up TO 0.2) EU/dL 0.2 Ur Leukocyte Esterase (Negative) Negative Urine Glucose (Negative) mg/dL Negative HPI General Mode of arrival: ambulatory . Date/Time Provider Initiated Documentation: 01/31/21 15:59 . Limitations to Documentation: no limitations . Information obtained by: patient . History of Present Illness 70 year old F presents to the emergency department with the chief complaint of complex cyst on US, difficulty urinating, described as moderate, with intensity rated at 7. Quality is described as aching, and is localized to the abdomen and pelvis. Patient reports no radiation. Patient started experiencing this month(s) (1.5) and it has been other (worsening). No relieving factors improve symptom(s), No exacerbating factors reported . Patient notes no other symptoms.. Patient did receive the following treatments prior to arrival, none Related Data Home Medications Medication Instructions Recorded Confirmed aspirin 81 mg PO DAILY tab-cap 11/11/17 01/31/21 ascorbic acid (vitamin C) 500 mg 500 mg PO DAILY cap 06/30/18 01/31/21 capsule cholecalciferol (vitamin D3) 25 1,000 unit PO DAILY 06/30/18 01/31/21 mcg (1,000 unit) capsule multivitamin,[id number]-[id number] 1 tab PO DAILY 06/30/18 01/31/21 omega-3 fatty acids 1,000 mg 1,000 mg PO DAILY 06/30/18 01/31/21 capsule vitamin B complex 1 tab PO DAILY 06/30/18 01/31/21 clobetasol 0.05 % topical ointment 1 applic TOPICAL bid PRN #30 gm 12/13/18 01/31/21 turmeric root extract 500 mg 500 mg PO DAILY 07/21/19 01/31/21 capsule meclizine 25 mg tablet 25 mg PO TID PRN #30 tab 03/23/20 01/31/21 magnesium oxide 500 mg capsule 500 mg PO DAILY cap 08/29/20 01/31/21 allopurinol 300 mg tablet 300 mg PO DAILY #90 tab 09/21/20 01/31/21 atorvastatin 40 mg tablet 40 mg PO DAILY #90 tab-cap 09/21/20 01/31/21 citalopram 20 mg tablet 20 mg PO DAILY #90 tab 09/21/20 01/31/21 losartan 25 mg tablet 25 mg PO DAILY #90 tab 09/21/20 01/31/21 metoprolol tartrate 100 mg tablet 100 mg PO BID #180 tab 12/21/20 01/31/21 colchicine [Colcrys] 0.6 - 1.2 mg PO as directed PRN 01/31/21 01/31/21 MDD 1.8mg metformin 500 mg PO HS 01/31/21 01/31/21 naproxen 250 - 500 mg PO BID PRN 01/31/21 01/31/21 omeprazole 40 mg PO HS 01/31/21 01/31/21 Previous Rx's Medication Instructions Recorded clobetasol 0.05 % topical ointment 1 applic TOPICAL bid PRN #30 gm 12/13/18 meclizine 25 mg tablet 25 mg PO TID PRN #30 tab 03/23/20 allopurinol 300 mg tablet 300 mg PO DAILY #90 tab 09/21/20 atorvastatin 40 mg tablet 40 mg PO DAILY #90 tab-cap 09/21/20 citalopram 20 mg tablet 20 mg PO DAILY #90 tab 09/21/20 losartan 25 mg tablet 25 mg PO DAILY #90 tab 09/21/20 metoprolol tartrate 100 mg tablet 100 mg PO BID #180 tab 12/21/20 Allergies Allergy/AdvReac Type Severity Reaction Status Date / Time adhesive Allergy Verified 01/31/21 18:19 codeine AdvReac Intermediate VOMITING Verified 01/31/21 18:19 YENIFER Inhibitors AdvReac Unknown COUGH Verified 01/31/21 18:19 Fluroqueinolones AdvReac Intermediate Tendonitis Uncoded 01/31/21 18:19 General Stated Complaint: Urinary BRADEN: 3 Review of Systems Constitutional Constitutional: Denies fatigue, Denies fever(s) and Denies weakness ENT Ears, Nose, Mouth, and Throat: Denies neck pain Cardiovascular Cardiovascular: Denies chest pain and Denies dyspnea Respiratory Respiratory: Denies cough and Denies dyspnea Gastrointestinal Gastrointestinal: Reports abdominal pain (suprapubic pressure), Reports constipation, Denies diarrhea, Denies nausea and Denies vomiting Genitourinary Genitourinary: Denies abnormal vaginal bleeding, Reports difficulty voiding, Denies dysuria, Reports urinary hesitancy, Reports urinary urgency and Denies vaginal discharge Musculoskeletal Musculoskeletal: Reports back pain (chronic) and Denies neck pain Integumentary/Breasts Skin/Breast: Denies rash Neurologic Neurologic: Denies weakness Endocrine Endocrine: Denies fatigue Hematologic/Lymphatic Hematologic/Lymphatic: Denies easy bleeding and Denies easy bruising [facility] Active Problem List Voiding dysfunction (Acute) Complex cyst of left ovary (Acute) Urinary hesitancy (Acute) Acute myocardial infarction of inferior wall (Acute) Neuropathy associated with cancer (Acute) Depressive disorder (Acute 02/13/00) Diabetes mellitus (Acute 10/25/12) Diverticular disease of colon (Acute 01/05/13) Essential hypertension (Acute 02/11/13) Gout (Acute 10/21/11) Hyperlipidemia (Acute) Lichen sclerosus et atrophicus (Acute 07/13/09) Malignant neoplasm of female breast (Acute 02/13/04) Multinodular goiter (Acute) Varicose veins of lower extremity (Acute) Vitreous degeneration (Acute 04/26/12) Obesity (Acute) Hypertension (Chronic) CAD (coronary artery disease) (Chronic) Medical History Arthritis of right shoulder region 2020- replaced BPV (benign positional vertigo) Calcific shoulder tendinitis Depression Diabetes mellitus Gout Hx of myocardial infarction F/U with cardiology. Does have surgical clearance form Dr. Bowden Hypertension Localized primary osteoarthritis of lower leg (12/02/13) feet Loose body of right shoulder Low magnesium level Rash 11/2019 seen [place] [facility] lichen [place] Rotator cuff tear, right Shoulder pain, right Tendonitis of long head of biceps brachii of right shoulder Surgical History Breast, Lumpectomy (~2004) Extraction of cataract left 2002; right 2003 Ligation of fallopian tube S/P Achilles tendon repair Family History Mother , 81 Hyperlipidemia Father , 63 Diabetes Heart disease Stroke Sister , 54 Neoplasm LUNG Grandfather Rheumatic fever Grandfather Neoplasm PROSTATE Grandmother Stroke Grandmother Heart disease Son Alcohol abuse Heart disease Daughter No problems noted. Social History Smoking/Tobacco Use Status: Former Tobacco Use Quit Date: 03/16/99 Tobacco: How many years used: 33 Smoking risk assessment performed?: Yes Alcohol Intake: former Drug use: Never Substance use type: does not use Details: no alcohol for 30 years Caregiver/Support person: No Household members: spouse and other Details: uGlshan. 35yrs. S-Lucas Bonilla, Erick Colon. Number of Children: 2 Communication Needs: None Do you need help understanding health information?: Rarely current occupation: retired, [employer], [employer]. Pets and animals: Yes Pets and animals: cat(s) and dog(s) Sexually active: No Do you think of yourself as: straight/heterosexual Current gender identity: female What is your relationship status?: How often do you talk on the phone with friends or family?: once per week Do you belong to any clubs or organized social groups?: no Panel score (0-1 are the most socially isolated patients): 1 What type of physical activity do you participate in: none, walking and independent ambulation Duration: 15-30 minutes/day Frequency: 3-4 times per week Seatbelt use: always Drive intox or ride w/intox pick up and delivery driver: No Do you feel safe at home: Yes Do you feel safe in your relationship?: Yes History History 3 Para Hx # Term Pregnancies 2 Multiple births Hx # Pregnancies Ectopic pregnancies 1 AB induced Hx Number of Living Children AB spontaneous Exam Const General: cooperative, healthy appearing, comfortable and no acute distress Orientation: alert, awake and oriented x3 HENMT Head: normal to inspection, normocephalic and atraumatic Face and sinus: normal facial exam Mouth: moist mucous membranes Eyes General: appearance normal, both eyes and all related structures Conjunctivae: conjunctivae normal Neck Neck: normal visual inspection, trachea midline and supple Resp Effort & Inspection: normal respiratory effort and able to speak in complete sentences Auscultation: clear to auscultation bilaterally Cardio Rate: regular rate Rhythm: regular rhythm GI Inspection: normal to inspection Palpation: no guarding and tender Auscultation: normal bowel sounds Other: Upper abdomen soft, lower abdomen-suprapubic region is firm, question mass. There is diffuse mild discomfort across the lower abdomen and suprapubic region. There is no guarding rebound or rigidity. Back/Spine/Pelvis Back: No back tenderness Skin General skin exam: no rashes or lesions noted Neuro General: patient alert, patient awake, patient oriented x3, moves all extremities and no focal motor deficits Cognition: normal cognition Speech: speech normal Gait: normal gait Sensory Exam: no sensory deficits noted Psych Appearance: grossly normal Mental Status: mental status grossly normal Course Vital Signs Vital signs: Vital Signs Temperature 36.7 C 01/31/21 14:28 Pulse 64 01/31/21 14:28 Respiratory Rate 16 01/31/21 14:28 Blood Pressure 135/95 H 01/31/21 14:28 Pulse Oximetry 98 01/31/21 14:28 Temperature 36.7 C 01/31/21 14:28 Temperature Source Skin 01/31/21 14:28 Pulse 64 01/31/21 14:28 Respiratory Rate 16 01/31/21 14:28 Respiratory Effort 01/31/21 14:32 Blood Pressure 135/95 H 01/31/21 14:28 Blood Pressure Position Sitting 01/31/21 14:28 Pulse Oximetry 98 01/31/21 14:28 Oxygen Delivery Method Room Air 01/31/21 14:28 Oxygen Flow Rate 0 01/31/21 14:28 Pain Level 10 01/31/21 14:28
--- NOTE | 2021-01-31 16:30 | DI.CT_ITS ---
Exam(s) CT ABDOMEN PELVIS W EXAM: CT ABDOMEN PELVIS W CLINICAL HISTORY: complex mass on ct, diff urinating. TECHNIQUE: Imaging Protocol: Axial computed tomography images with coronal and sagittal reformatted images were created and reviewed CONTRAST MATERIAL: Intravenous: Omnipaque 350 Contrast volume:100 ml Oral: yes COMPARISON: US US RENAL from 01/09/2021 US US RENAL PELVIC TRANSVAGINAL from 01/23/2021 FINDINGS: ABDOMEN: Lung Bases: Dependent changes.. Liver: Normal density. No measurable mass. Gallbladder and biliary tract: Cholelithiasis. No gallbladder wall distention or wall thickening. Pancreas: Normal density, no abnormal calcifications or inflammatory process. Spleen: Normal. Kidneys: Normal size, contour and axis. No radiodense stones . No masses seen. Mild bilateral hydrone phrosis Adrenal glands: No masses seen. Abdominal Aorta: Abdominal portion non-dilated. The distal aorta and iliac arteries are heavily calci fied. Significant stenosis is noted in the left iliac arteries. PELVIS: Bladder: Decompressed by Dias catheter. Bowel: No obstruction or bowel wall thickening. Diverticulosis without evidence of diverticulitis. Peritoneal cavity: Trace fluid lower pelvis.. Bones: Degenerative disc changes and facet degenerative changes. Reproductive organs: Enlarged uterus, 12 x 9 x 8 cm, with at least 2 masses, 1 of which shows periphe ral calcification. The origin could be endometrium or myometrium. The ovaries are not visualized. There is a question of an additional mass seen between the uterus and and which could represent an ad nexal mass versus additional uterine mass. Lymph nodes: Unremarkable. Impression: Uterine masses suspicious for malignancy.. Question additional adnexal versus additional anterior ut erine mass. Masses cause mild bilateral hydronephrosis. RADIATION DOSE DELIVERED: 1,292.33mGy.cm Total DLP DATA REPOSITORY: All CT scans at this facility are submitted to the National Radiology Data Registry (NRDR) Dose Index Registry (DIR) with the [employer] (ACR). RADIATION OPTIMIZATION: All CT scans at this facility use at least one of these dose optimization te chniques: automated exposure control; mA and/or kV adjustment per patient size (includes targeted exa ms where dose is matched to clinical indication); or iterative reconstruction.
[2021-01-31 17:09] LABS: Abs Immature Grans 0.01 10^3/uL (0.0-0.06); Absolute Basophil Count 0.05 10^3/uL (0.0-0.2); Absolute Eosinophil Count 0.25 10^3/uL (0.0-0.7); Absolute Monocyte Count 0.57 10^3/uL (0.1-0.8); Absolute Neutrophil Count 3.59 10^3/uL (1.2-6.7); Basophils % 0.9; Eosinophils % 4.5; HCT 38.8 % (36.0-46.0); HGB 12.7 g/dL (11.2-15.7); Immature Grans % 0.2; Lymphocytes % 19.7; MCH 32.8 pg (27.0-33.0); MCHC 32.7 % (32.0-36.0); MCV 100.3 fL (80-95); MPV 9.7 fL (8.0-11.0); Monocytes % 10.2; Neutrophils % 64.5; Nucleated RBC 0 %; Platelet Count 163 10^3/uL (130-400); RBC 3.87 10^6/uL (3.93-5.22); RDW 13.5 % (11.7-14.6); RDW-SD 49.8 fL; WBC 5.57 10^3/uL (4.4-10.8)
[2021-01-31 17:18] LABS: ALT 23 U/L (14-59); AST 23 U/L (15-37); Albumin 3.7 g/dL (3.4-5.0); Alkaline Phosphatase 114 U/L (46-116); Anion Gap 9.1 mmol/L (3-11); BUN 31 mg/dL (7-18); Bilirubin, Total 0.7 mg/dL (0.2-1.0); CO2 27.9 mmol/L (21.0-32.0); CREATININE 0.9 mg/dL (0.55-1.02); Calcium 9.7 mg/dL (8.5-10.1); Chloride 107 mmol/L (98-107); Glucose 87 mg/dL (74-106); Lipase 127 U/L (73-393); Potassium 4.5 mmol/L (3.5-5.1); Sodium 144 mmol/L (136-145); Total Protein 7.2 g/dL (6.4-8.2)
[2021-01-31 18:07] LABS: Bilirubin Negative (Negative); Blood Negative (Negative); Clarity Clear (Clear); Glucose Negative (Negative); Ketones Negative (Negative); Leukocyte Esterase Negative (Negative); Nitrite Negative (Negative); Specific Gravity >= 1.030 (1.005-1.025); Urobilinogen 0.2 EU/dL (Up TO 0.2); pH 6.5 (5-8)
[2021-01-31] MEDS: Normal Saline - Diluent 50 ML VIAL IV (19:02)
[2021-01-31] MEDS: Normal Saline Flush 10 ML SYR IVP (19:03)
[2021-01-31] MEDS: Omnipaque 350 MG/ML 100 ML BTL IJ (19:03)
[2021-01-31 19:14] VITALS: BP 139/74; PULSE 67; RESP 18; TEMP 36.5; O2SAT 97
--- NOTE | 2021-01-31 19:41 | DI.VRAD_ITS ---
PROCEDURE INFORMATION: Exam: CT Abdomen And Pelvis With Contrast Exam date and time: 01/31/2021 16:34 Age: 70 years old Clinical indication: Other: Complex mass on US, diff urinating TECHNIQUE: Imaging protocol: Computed tomography of the abdomen and pelvis with contrast. COMPARISON: US RENAL PELVIC TRANSVAGINAL 01/23/2021 10:36 FINDINGS: Lungs: Micro atelectasis versus early interstitial disease in the lung bases. Liver: No hepatic masses. Gallbladder and bile ducts: Cholelithiasis. No significant biliary dilation or radiopaque stones in the biliary tree. Pancreas: No ductal dilation. No masses. Spleen: No splenomegaly or focal lesions. Adrenal glands: No mass. Kidneys and ureters: Mild bilateral hydronephrosis. No renal masses Stomach and bowel: Colonic diverticulosis without diverticulitis. No focal pathology in the small bowel. Appendix: No evidence of appendicitis. Intraperitoneal space: Small cul-de-sac free fluid. Vasculature: Atherosclerosis. Lymph nodes: No significantly enlarged lymph nodes. Urinary bladder: Dias catheter in a decompressed urinary bladder. Urinary bladder displaced to the right by the enlarged uterus. Reproductive: Complex pelvic mass. A dominant component appears almost certainly to be located within the uterus, approximately 12 by 9 by 8 cm. Unclear if this originated in the endometrium or myometrium. An additional lesion which is located more anteriorly interspersed between the bladder and the uterus, 8 x 5 by 8 cm, could be adnexal or could be related to the myometrium. Mild surrounding edema. Bones/joints: Degenerative changes in the spine. No acute fracture or subluxation. Soft tissues: No suspicious lesions. IMPRESSION: 1. Complex pelvic mass, favor originating from the uterus rather than the adnexa as described and concerning for malignancy. 2. Mild bilateral hydronephrosis; could be due to reflux if the urinary bladder was recently decompressed or to mass effect at the UVJ bilaterally. Malignant involvement of the posterior bladder wall cannot be excluded on this study. 3. Incidental findings as described. Dictated and Authenticated by: Yokasta Coles MD. Ordering:KAREY Wyman MD
[2021-01-31 20:40] VITALS: BP 146/74; PULSE 64; RESP 18; TEMP 36.3; O2SAT 99
--- NOTE | 2021-02-01 05:29 | NUR.NOTE ---
i put the referral in the care management mailbox to see pcp and obgyn for uterine cancer Nursing Note:
== END 2021-01-31 20:37 | disposition home or self-care (01) ==
PROVIDERS: Emergency Provider Physician Assistant; PCP Nurse Practitioner
DX: R19.09 Other intra-abdominal and pelvic swelling, mass and lump (principal); R33.9 Retention of urine, unspecified
CPT/HCPCS: 36415; 51702; 80053; 83690; 99285; 74177; 81003; 85025; 99284; J3490

== ENCOUNTER → 2021-02-27 00:03 | Outpatient (CLI) | payer MEDICARE, SELFPAY ==
--- NOTE | 2021-02-27 | DI.US_ITS ---
Exam(s) US BREAST RT COMPLETE EXAM: US BREAST RT COMPLETE CLINICAL HISTORY: ABN NODULE. TECHNIQUE: Complete ultrasound of the breast was performed including all 4 quadrants, the retroareo lar region, and the ipsilateral axilla. COMPARISON: Prior mammograms were reviewed. FINDINGS: IMPRESSION: See combined report Appropriate follow-up is repeat right breast imaging in 6 months to include repeat right breast mammo gram and ultrasound. BI-RADS Category 3 - 6 month - Probably Benign Finding: Recommend follow-up mammography in 6 months Breast Density - Category B - Scattered areas of fibroglandular density Breast density Category C or D implies that the patient has dense breast tissue. Dense breast tissue can make it harder to find cancer on a mammogram. Dense breast tissue is also associated with an incr eased risk of breast cancer. This information about the result of the mammogram report was provided to the patient to raise their awareness. Use this report when you speak with the patient about their risks for breast cancer, which includes their family history. At that time, you may recommend additional screening tests (Ultrasoun d or MRI) as these tests may add significant information. A negative radiographic report should not delay biopsy if a dominant or clinically suspicious mass is present. Up to ten percent of cancers are not identified on mammography. A negative report may reinforce clinical impression. Adenosis and dense breasts may obscure an underlying neoplasm. False positive reports average 6 to 10%. Patient will receive a letter notifying them of these results.
--- NOTE | 2021-02-27 10:53 | DI.MAMMO_ITS ---
Exam(s) MG MAMMO DIAGNOSTIC UNI EXAM: MG MAMMO DIAGNOSTIC UNI -RIGHT AND COMPLETE RIGHT BREAST ULTRASOUND CLINICAL HISTORY: f/u abnl mammo,3 mo f/u, r92.8. TECHNIQUE: Both CC and MLO views of the right breast were performed. Also performed right unilateral spot mammographic images were obtained with 3D tomosynthesis technique and utilizing computer aided detection (CAD). Also performed complete right breast ultrasound including all 4 quadrants as well as the retroareolar region COMPARISON: Prior mammograms were reviewed, the most recent being 11/07/2020. FINDINGS: On the right CC view the area of concern posteriorly looks less concerning and similar in appearance to prior mammograms. However, on the MLO view the density posteriorly persists. Therefore proceeded w ith right breast ultrasound. Complete right breast ultrasound: All 4 quadrants were scanned. At the 12 o'clock position the heavily calcified dystrophic calcification at the lumpectomy site is a gain noted. At the 10 o'clock position there is a 4 x 3 millimeter oval nodule has appearance hemorrhagic microcy st and probably corresponds to the finding on the mammogram. There are no other focal findings in all 4 quadrants. IMPRESSION: The finding posteriorly in the right breast on the mammogram appears to correlate with a 4 x 3 millim eter probable hemorrhagic microcysts on ultrasound. Appropriate follow-up is repeat right breast imaging in 6 months to include repeat right breast mammo gram and ultrasound.. The patient was informed of the findings and follow-up recommendations prior to leaving the [facility]. BI-RADS Category 3 - 6 month - Probably Benign Finding: Recommend follow-up mammography in 6 months Breast Density - Category B - Scattered areas of fibroglandular density Breast density Category C or D implies that the patient has dense breast tissue. Dense breast tissue can make it harder to find cancer on a mammogram. Dense breast tissue is also associated with an incr eased risk of breast cancer. This information about the result of the mammogram report was provided to the patient to raise their awareness. Use this report when you speak with the patient about their risks for breast cancer, which includes their family history. At that time, you may recommend additional screening tests (Ultrasoun d or MRI) as these tests may add significant information. A negative radiographic report should not delay biopsy if a dominant or clinically suspicious mass is present. Up to ten percent of cancers are not identified on mammography. A negative report may reinforce clinical impression. Adenosis and dense breasts may obscure an underlying neoplasm. False positive reports average 6 to 10%. Patient will receive a letter notifying them of these results.
== END ==
PROVIDERS: PCP Nurse Practitioner; Visit Provider Nurse Practitioner
DX: R92.8 Other abnormal and inconclusive findings on diagnostic imaging of breast (principal); N60.01 Solitary cyst of right breast
CPT/HCPCS: 76642; 77061; 77065; G0279

== ENCOUNTER → 2021-07-23 09:26 | Outpatient (BNVA) | payer OTHER, SELFPAY | PROVIDERS: PCP Nurse Practitioner; Referring Provider Nurse Practitioner; Visit Provider Internal Medicine Cardiovascular Disease | DX: I10 Essential (primary) hypertension (principal); I25.10 Atherosclerotic heart disease of native coronary artery without angina pectoris; E78.5 Hyperlipidemia, unspecified | CPT/HCPCS: 99214; 99213 ==

== ENCOUNTER → 2021-08-28 01:34 | Outpatient (CLI) | payer OTHER, SELFPAY ==
--- NOTE | 2021-08-28 07:15 | DI.US_ITS ---
Exam(s) MG MAMMO DIAGNOSTIC UNI US BREAST RT COMPLETE EXAM: MG MAMMO DIAGNOSTIC UNI -RIGHT AND COMPLETE RIGHT BREAST ULTRASOUND CLINICAL HISTORY: 3-6 MO F/U ABNL MAMMO, R92.8,Z09. TECHNIQUE: Both CC and MLO views of the right breast were performed as well as 2 additional spot vie ws of the area posteriorly in the breast. Mammographic images were obtained with 3D tomosynthesis te chnique and utilizing computer aided detection (CAD). Complete right breast ultrasound was performed, including all 4 quadrants as well as the retroareolar region and right axilla. COMPARISON: Prior mammograms were reviewed, the most recent being February 2021.. Prior ultrasound of February 2021 was also reviewed. FINDINGS: DIAGNOSTIC RIGHT BREAST MAMMOGRAM: Lumpectomy site remain stable including dystrophic calcification. More posteriorly the asymmetric de nsity remains stable conventional and additional images. COMPLETE RIGHT BREAST ULTRASOUND: No evidence of solid or significant cystic lesions in all 4 quadrants. On today's study the previous ly described 4 millimeter finding at the 10 o'clock position is not evident, implying that was probab ly a hemorrhagic cyst. No focal findings in the retroareolar region. No axillary adenopathy. IMPRESSION: 1. Stable mammographic appearance of the right breast lumpectomy site as well as the asymmetric tissu e posteriorly in the right breast. 2. Negative complete right breast ultrasound. Appropriate follow-up is keep this patient on yearly mammogram schedule. This implies the next bilat era mammogram would be in 6 months, with earlier imaging if a self detected breast change is noted. The patient was informed of the findings and follow-up recommendations [facility] BI-RADS Category 3 - 6 month - Probably Benign Finding: Recommend follow-up mammography in 6 months Breast Density - Category B - Scattered areas of fibroglandular density Breast density Category C or D implies that the patient has dense breast tissue. Dense breast tissue can make it harder to find cancer on a mammogram. Dense breast tissue is also associated with an incr eased risk of breast cancer. This information about the result of the mammogram report was provided to the patient to raise their awareness. Use this report when you speak with the patient about their risks for breast cancer, which includes their family history. At that time, you may recommend additional screening tests (Ultrasoun d or MRI) as these tests may add significant information. A negative radiographic report should not delay biopsy if a dominant or clinically suspicious mass is present. Up to ten percent of cancers are not identified on mammography. A negative report may reinforce clinical impression. Adenosis and dense breasts may obscure an underlying neoplasm. False positive reports average 6 to 10%. Patient will receive a letter notifying them of these results.
== END ==
PROVIDERS: PCP Nurse Practitioner; Visit Provider Nurse Practitioner
DX: R92.8 Other abnormal and inconclusive findings on diagnostic imaging of breast (principal); Z09 Encounter for follow-up examination after completed treatment for conditions other than malignant neoplasm; Z90.11 Acquired absence of right breast and nipple
CPT/HCPCS: 76642; 77061; 77065; G0279

== ENCOUNTER → 2021-08-28 01:34 | Outpatient (CLI) | payer OTHER, SELFPAY ==
[2021-08-28] MEDS: Barium Sulfate 2% W/V-Berry Smoothie 450 ML BTL 900 ML PO (10:19)
--- NOTE | 2021-08-28 10:34 | DI.CT_ITS ---
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 TECHNIQUE: Imaging Protocol: Axial computed tomography images with coronal and sagittal reformatted images were created and reviewed CONTRAST MATERIAL: Intravenous: none Oral: Yes. Oral contrast was administered for bowel opacification COMPARISON: CT CT ABDOMEN PELVIS W from 01/31/2021 FINDINGS: CHEST: LUNGS: There are mild increased peripheral markings in both lungs, more so on the left side but there are no confluent infiltrates exhibiting air bronchograms and there are no pleural effusions. There no ominous pulmonary nodules.. MEDIASTINUM: No obvious hilar nor mediastinal adenopathy. No subcarinal adenopathy. No axillary marcial opathy in this patient who has had prior right lumpectomy.Both lobes of the thyroid gland are signifi cantly enlarged as is the isthmus and the trachea at this level is compressed with mild narrowing of the airway at this level. The enlarged thyroid lobes contain multiple partially calcified nodules. Can be further studied with ultrasound. CARDIAC: Mild cardiomegaly. No pericardial effusion. Coronary artery calcification in the LAD noted .Caliber of the thoracic aorta is within normal limits. OSSEOUS: No significant osseous lesions.. ABDOMEN: There is no ascites. LIVER: There are no obvious focal hepatic lesions evident of this noninfused study. GALLBLADDER/BILIARY: Gallstones are again noted. Gallbladder does not appear distended nor edematous . CBD is not dilated. PANCREAS: No evidence of obvious pancreatic mass nor dilatation of the pancreatic duct. SPLEEN: Spleen is not enlarged. No obvious intrasplenic lesions. ADRENALS: There are no significant adrenal masses. KIDNEYS: No calculi nor hydronephrosis. No obvious solid renal masses. No cysts evident. ABDOMINAL AORTA: Again noted is heavy calcification and mild dilatation of most inferior aspect of th e abdominal aorta, with this arterial megaly and heavy calcification extending into the left common i liac artery which exhibits a proximal diameter of 1.8 cm, unchanged. The right common iliac artery i s significantly less calcified and not dilated. LYMPH NODES: There is no retroperitoneal nor para-aortic adenopathy. There is no adenopathy around t he aortic bifurcation nor along the iliac chains and there is no inguinal adenopathy ABDOMINAL WALL/GI: No evidence of significant anterior abdominal wall nor inguinal hernia. No evidence of bowel obstruction. PELVIS: LYMPH NODES: There is no intrapelvic nor inguinal adenopathy. GI: No evidence of appendicitis.There are sigmoid diverticuli but no evidence of acute diverticulitis . URINARY BLADDER: No calculi nor obvious masses evident REPRODUCTIVE: There has been interval hysterectomy. The previously present large mass is been. Ther e is presently no obvious abnormal tissue in the pelvis nor free fluid nor abnormal fluid collection. OSSEOUS: No significant osseous lesions. No fractures IMPRESSION: 1. Compared to the prior CT scan of 01/31/2021 there has been interval hysterectomy with removal of t he previously described large pelvic mass. There is presently no abnormal appearing mass nor tissue nor fluid in the pelvis and no evidence of intrapelvic adenopathy. 2. There is no hydronephrosis. There is no bowel obstruction. 3. Gallstones again noted. No evidence of acute cholecystitis nor dilatation of the biliary tree. 4. Heavily calcified and mildly dilated distal abdominal aorta with arterial megaly continuing into t he left common iliac artery, unchanged. Diameter of the dilated distal abdominal aorta is 2.2 cm and diameter of the left iliac artery is 1.8 cm. The right common iliac artery is not dilated. No evidence of metastatic disease in the lungs. No nodules and no pleural effusions. Incidentally noted is a significantly enlarged thyroid gland. Both lobes as well as the isthmus are enlarged and the airway-trachea is somewhat compressed at this level. The enlarged thyroid lobes abbey ear to be involved with multiple nodules, some which are calcified. If clinically indicated further study with thyroid ultrasound can be performed. Other findings as above RADIATION DOSE DELIVERED: 1,562.02mGy.cm Total DLP DATA REPOSITORY: All CT scans at this facility are submitted to the National Radiology Data Registry (NRDR) Dose Index Registry (DIR) with the [employer] (ACR). RADIATION OPTIMIZATION: All CT scans at this facility use at least one of these dose optimization te chniques: automated exposure control; mA and/or kV adjustment per patient size (includes targeted exa ms where dose is matched to clinical indication); or iterative reconstruction.
== END ==
PROVIDERS: PCP Nurse Practitioner; Visit Provider Obstetrics & Gynecology Gynecologic Oncology
DX: C54.1 Malignant neoplasm of endometrium (principal); K80.20 Calculus of gallbladder without cholecystitis without obstruction; Z90.710 Acquired absence of both cervix and uterus; I70.0 Atherosclerosis of aorta; I77.811 Abdominal aortic ectasia; E04.2 Nontoxic multinodular goiter
CPT/HCPCS: 71250; 74176

== ENCOUNTER 2021-10-11 01:56 | Outpatient (CLI) | payer OTHER, SELFPAY ==
[2021-10-11 11:45] LABS: Hemoglobin A1C 6.1 % (<5.7)
[2021-10-11 12:12] LABS: Anion Gap 8.4 mmol/L (3-11); BUN 36 mg/dL (7-18); CO2 27.6 mmol/L (21.0-32.0); CREATININE 1.2 mg/dL (0.55-1.02); Calcium 9.3 mg/dL (8.5-10.1); Calculated LDL 64 mg/dL (<100); Chloride 103 mmol/L (98-107); Cholesterol 135 mg/dL (<200); Estimated GFR 44.16 (mL/min/1.73m2); Glucose 109 mg/dL (74-106); HDL Cholesterol 46 mg/dL (40-60); Sodium 139 mmol/L (136-145); TSH (W/Ref FT4) 0.87 uIU/mL (0.36-3.74); Triglyceride 126 mg/dL (<150)
== END 2021-10-11 01:57 | disposition home or self-care (01) ==
LOC: LBO 01:56
PROVIDERS: PCP Nurse Practitioner; Visit Provider Nurse Practitioner
DX: I10 Essential (primary) hypertension (principal); E11.9 Type 2 diabetes mellitus without complications; E78.5 Hyperlipidemia, unspecified
CPT/HCPCS: 36415; 80048; 80061; 83036; 84443

== ENCOUNTER → 2022-03-11 02:10 | Outpatient (CLI) | payer OTHER, SELFPAY ==
--- NOTE | 2022-03-11 07:45 | DI.MAMMO_ITS ---
Exam(s) MG MAMMO SCREENING 60 MIN DUR EXAM: MG MAMMO SCREENING 60 MIN DUR CLINICAL HISTORY: breast cancer screening,personal h/o breast ca,z85.3. TECHNIQUE: Bilateral full field digital CC and MLO mammographic images were obtained with 3D tomosyn thesis and utilizing computer aided detection (CAD). COMPARISON: Prior mammograms were reviewed. FINDINGS: There has been no significant change in the appearance and distribution of the fibroglandular tissue. Right breast lumpectomy site remains stable. The recently described asymmetric density posteriorly i n the right breast also appears stable. No new right breast findings. In the left breast the small benign-appearing nodular densities previously described remain unchanged . No new malignant-appearing microcalcification groups. There is no new significant architectural distortion. IMPRESSION: 1. No radiographic evidence of malignancy in the left breast. Stable benign-appearing findings in th e left breast. 2. Stable appearance of the asymmetric density seen posteriorly in the right breast which is unchange d from October 2020. Appropriate follow-up, as discussed by myself with the patient today, is repeat right breast mammogr am in 6 months to ensure stability of the finding posteriorly in the right breast. This requires liliam ng proven to be stable on a six-month basis for 2 years. BI-RADS Category 3 - 6 month - Probably Benign Finding: Recommend follow-up mammography in 6 months Breast Density - Category B - Scattered areas of fibroglandular density Breast density Category C or D implies that the patient has dense breast tissue. Dense breast tissue can make it harder to find cancer on a mammogram. Dense breast tissue is also associated with an incr eased risk of breast cancer. This information about the result of the mammogram report was provided to the patient to raise their awareness. Use this report when you speak with the patient about their risks for breast cancer, which includes their family history. At that time, you may recommend additional screening tests (Ultrasoun d or MRI) as these tests may add significant information. A negative radiographic report should not delay biopsy if a dominant or clinically suspicious mass is present. Up to ten percent of cancers are not identified on mammography. A negative report may reinforce clinical impression. Adenosis and dense breasts may obscure an underlying neoplasm. False positive reports average 6 to 10%. Patient will receive a letter notifying them of these results.
== END ==
PROVIDERS: PCP Nurse Practitioner Family; Visit Provider Nurse Practitioner Family
DX: Z85.3 Personal history of malignant neoplasm of breast (principal); Z12.31 Encounter for screening mammogram for malignant neoplasm of breast
CPT/HCPCS: 77063; 77067

== ENCOUNTER 2022-03-21 00:16 | Outpatient (CLI) | payer OTHER, SELFPAY ==
--- OUTSIDE RECORDS SUMMARY | 2022-03-21 00:18 | XMS_ITS ---
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, bilateral ALLERGIES No Information ENCOUNTERS Encounter Location Date Diagnosis [facility] Audiology [address] [place] [address] July, Mixed con ductive and [address] [place] [address] sensorine ural hearing [id number] loss, bilateral H90.6 [facility] Aud[facility] [address] [place] [address] Jun, [address] [place] [id number] [facility] [address] [place] [address] Jun, Mixed con ductive and [address] [place] [address] sensorine ural hearing [id number] loss, bilateral H90.6 [facility] Aud[facility] [address] [place] [address] Jun, Mixed con ductive and [address] [place] [address] sensorine ural hearing [id number] loss, bilateral H90.6 [facility] Aud[facility] [address] [place] [address] Feb, Mixed con ductive and [address] [place] [address] sensorine ural hearing [id number] loss, bilateral H90.6 [facility] Aud[facility] [address] [place] [address] Feb, Mixed con ductive and [address] [place] [address] sensorine ural hearing [id number] loss, bilateral H90.6 [facility] Audiology [address] [place] [address] Feb, [address] [place] [address] [id number] [facility] Audiology [address] Jan, Mixed con ductive and [address] [place], [place] sensorine ural hearing [id number] loss, bilateral H90.6 [facility] Primary [address] Jun, Care [place], [place] [phone] [facility] Audiology [address] May, [address] [place], [place] [id number] [facility] Audiology [address] May, [address] [place], [place] [phone] [facility] Audiology [address] May, Mixed con ductive and [address] [place], [place] sensorine ural hearing [phone] loss, bilateral H90.6 IMMUNIZATIONS No Known Immunizations SOCIAL HISTORY Never Assessed REASON FOR REFERRAL FUNCTIONAL STATUS PLAN OF CARE VITAL SIGNS MEDICATIONS Unknown Medications PROCEDURES Procedure Date Ordered Result Body Site EAR MOLD INSERT NOT DISP ANY TYPE Feb 23, 2020 DISPENSING FEE BINAURAL Feb 23, 2020 Hearing Aid digital binaural BTE Feb 23, 2020 CONFORMITY EVALUATION Feb 23, 2020 GAXIOLA PROGRAMMING (CHECKING OF GAXIOLA) Feb 23, 2020 GAXIOLA Consult May 25, 2019 COMPREHENSIVE AUDIOMET THRESH AND SPEECH June 26, 2021 COMPREHENSIVE AUDIOMET THRESH AND SPEECH June 20, 2020 Assessment for hearing aid Feb 23, 2020 EAR MOLD IMPRESSION Feb 23, 2020 COMPREHENSIVE AUDIOMET THRESH AND SPEECH May 25, 2019 GAXIOLA Consult Jan 26, 2020 RESULTS No Results REASON FOR VISIT AUD AUTIOGRAM, AUD REPAIR CLARIFIER AND PAIRING, GAXIOLA repair , AUD AUDIOGRAM, LAST TEST 06/20/2020, AUD AUDIOGRAM, aud audiogram, last test 05/25/2019, AUD FIT F/U, AUD GAXIOLA FIT, AUD GAXIOLA BENEFITS, AUD GAXIOLA CONSULT-READY TO ORDER DEDUCTIBLES MET, Consult, AUD GAXIOLA order, H/A BENEFITS, AUD AUDIOGRAM, AUD-HEARING TEST Insurance Providers [facility] Health Member Patient Patient Patient Patient Patient Subscriber Subscriber Subscriber Group Insurance Plan Plan Plan Plan ID Relationship Address Phone Name Date of ID Name Date of No Type Insurance Insurance Insurance Coverage to Subscriber Address Phone Name Dates [place] [phone] [place] self [place] [id number] ATTN [id number] Proia [phone] [facility]S [facility] [id number] [facility] [phone] [facility] self [place] [id number] [facility] [place] [address]
[2022-03-21 08:44] LABS: CREATININE 1.2 mg/dL (0.55-1.02)
[2022-03-21] MEDS: Normal Saline - Diluent 50 ML VIAL IJ (10:07)
[2022-03-21] MEDS: Omnipaque 350 MG/ML 500 ML BTL-Imaging package 100 ML IJ (10:17)
--- NOTE | 2022-03-21 10:19 | DI.CT_ITS ---
Exam(s) CT CHEST/ABD/PEL W EXAM: CT CHEST/ABD/PEL W CLINICAL HISTORY: 6 MO F/U, ENDOMETRIAL CA,C54.1. TECHNIQUE: Imaging Protocol: Axial computed tomography images with coronal and sagittal reformatted images were created and reviewed CONTRAST MATERIAL: Intravenous: Omnipaque 350 Contrast volume:100 ml Oral: yes / COMPARISON: CR CHEST 2 VIEWS PA,LAT from 03/27/2017 CR XR SHOULDER RT COMPLETE 2+V from 08/29/[address] CHEST/ABD/PEL WO from 08/28/2021 FINDINGS: CHEST: Stable enlargement of the thyroid with multiple nodules. Tracheobronchial tree: Patent where visualized. Mediastinum and Rissa: No dominant adenopathy or fluid collection. Pulmonary parenchyma: No consolidation or dominant measurable mass. Pleura: No effusion or pneumothorax. Lymph nodes: Within normal limits. Aorta: Thoracic portion non-dilated. Mild atherosclerotic changes. Heart: Mild left ventricular and left atrial dilatation. Coronary arteries are heavily calcified. Bones: Right shoulder prosthesis. No lytic or blastic lesions. ABDOMEN: Liver: Normal density. No measurable mass. Gallbladder and biliary tract: Calcified gallstones. No wall thickening. No biliary dilation. Pancreas: Normal density, no abnormal calcifications or inflammatory process. Spleen: Normal. Kidneys: Normal size, contour and axis. No radiodense stones or obstructive uropathy. No masses seen. Adrenal glands: No masses seen. Aorta: Abdominal portion non-dilated. Severe atherosclerotic calcifications. Stable dilatation prox imal left internal carotid artery which also show is heavily calcified. Lymph nodes: Within normal limits. Soft tissues: Unremarkable. PELVIS: Bladder: Symmetric distention, no gross wall thickening. Bowel: No obstruction or bowel wall thickening. Mild diverticulosis. Moderate to the large quantity of stool. Peritoneal cavity: No ascites, collection or mesenteric inflammatory response. Bones: Unremarkable for age.. Reproductive organs: Status post hysterectomy. IMPRESSION: No evidence of recurrent pelvic mass or evidence of metastatic disease in the chest abdomen or pelvis . Stable chronic findings. RADIATION DOSE DELIVERED: 2,086.47mGy.cm Total DLP DATA REPOSITORY: All CT scans at this facility are submitted to the National Radiology Data Registry (NRDR) Dose Index Registry (DIR) with the [employer] (ACR). RADIATION OPTIMIZATION: All CT scans at this facility use at least one of these dose optimization te chniques: automated exposure control; mA and/or kV adjustment per patient size (includes targeted exa ms where dose is matched to clinical indication); or iterative reconstruction.
== END 2022-03-21 00:36 ==
PROVIDERS: PCP Nurse Practitioner Family; Visit Provider Nurse Practitioner Family
DX: C54.1 Malignant neoplasm of endometrium (principal)
CPT/HCPCS: 74177; 71260; 82565

== ENCOUNTER 2022-07-22 07:50 | Outpatient (CLI) | payer OTHER, SELFPAY ==
--- NOTE | 2022-07-22 07:45 | RT.EKG_ITS ---
APPROVED REPORT Exam: Resting ECG Reason for Exam: cad Patient Location: O HR:58 bpm ECG Measurements Heart Rate 58 AXIS WA 200 P 56 QRSd 103 QRS -20 QT 441 T 13 QTc 434 Conclusion Sinus rhythm...normal P axis, V-rate 50- 99 Left ventricular hypertrophy...multiple voltage criteria Old anterior infarct
== END 2022-07-22 07:51 | disposition home or self-care (01) ==
LOC: DI.CARD 07:50
PROVIDERS: PCP Nurse Practitioner Family; Visit Provider Internal Medicine Cardiovascular Disease
DX: I25.10 Atherosclerotic heart disease of native coronary artery without angina pectoris (principal)
CPT/HCPCS: 93010

== ENCOUNTER → 2022-07-22 09:21 | Outpatient (BNVA) | payer OTHER, SELFPAY | PROVIDERS: PCP Nurse Practitioner Family; Referring Provider Nurse Practitioner Family; Visit Provider Internal Medicine Cardiovascular Disease | DX: I10 Essential (primary) hypertension (principal); I25.10 Atherosclerotic heart disease of native coronary artery without angina pectoris; Z95.5 Presence of coronary angioplasty implant and graft; E78.5 Hyperlipidemia, unspecified | CPT/HCPCS: 93005; 99213 ==

== ENCOUNTER 2022-08-28 15:31 | Outpatient (CLI) | payer OTHER, SELFPAY ==
--- NOTE | 2022-08-28 15:45 | DI.RAD_ITS ---
Exam(s) XR HIP LT COMPLETE AP PELVIS EXAM: XR HIP LT COMPLETE AP PELVIS CLINICAL HISTORY: evaluate pathology, back pain with sciatica, M54.40. TECHNIQUE: 2D digital imaging was performed. COMPARISON: CT CT CHEST/ABD/PEL W from 03/21/2022 FINDINGS: Views No evidence of pelvic nor hip fractures. There is mild-moderate narrowing the left hip joint space. Mild narrowing of the right hip joint space. There is a 1 by 0.8 cm calcific density seen just abov e the greater trochanter of the right hip, unchanged from 03/21/2022 Incidentally noted are degenerative changes facet joints lower LS spine, L5-S1 level. IMPRESSION: Mild findings as above. DATA REPOSITORY: RADIATION DOSE DELIVERED:
--- NOTE | 2022-08-28 15:45 | DI.RAD_ITS ---
Exam(s) XR LUMBAR SPINE COMPLETE EXAM: XR LUMBAR SPINE COMPLETE CLINICAL HISTORY: evaluate pathology, back pain lumbar spine with sciatica, M54.40. TECHNIQUE: 2D digital imaging was performed. COMPARISON: CT CT CHEST/ABD/PEL W from 03/21/2022 FINDINGS: Five views: No evidence compression fracture. There is multilevel advanced disc space narrowing throughout the l umbosacral spine with more moderate narrowing of the L5-S1 disc space. However, there is approximate ly 1 cm anterolisthesis L5 upon S1 due to bilateral facet arthropathy. There are no obvious pars def ects at L5 level. There are mild degenerative changes in the facet joints. SI joints unremarkable. Mild scoliosis convex left. Has epicenter at L3-4 level where there is more advanced narrowing of t he right-side of the disc space than the left side at this level. Probably results in an element of right-sided foraminal stenosis at this level. No osseous lesions. IMPRESSION: Multilevel degenerative disc disease chronic nature. Degenerative anterolisthesis L5 upon S1. The distal abdominal aorta is calcified and there appears to be aneurysmal dilatation of the distal m ost abdominal aorta and extending into 1 of the common iliac arteries.. DATA REPOSITORY: RADIATION DOSE DELIVERED:
== END 2022-08-28 15:51 ==
LOC: DI 15:32
PROVIDERS: PCP Nurse Practitioner Family; Visit Provider Nurse Practitioner Family
DX: M51.37 Other intervertebral disc degeneration, lumbosacral region; M54.41 Lumbago with sciatica, right side
CPT/HCPCS: 72110; 73502

== ENCOUNTER 2022-09-18 02:26 | Outpatient (CLI) | payer OTHER, SELFPAY ==
--- NOTE | 2022-09-18 08:00 | DI.MAMMO_ITS ---
Exam(s) MG MAMMO DIAGNOSTIC UNI EXAM: MG MAMMO DIAGNOSTIC UNI CLINICAL HISTORY: 6 month follow up, F/U ABNL MAMMO, R92.8 TECHNIQUE: Right cc and MLO mammogram images were performed according to the usual protocol includ ing computer analysis with CAD system, tomosynthesis and C-view imaging. COMPARISON: 2012 through February 2022 FINDINGS: The right breast is composed of scattered fibroglandular densities, Breast Density category B. No suspicious masses or suspicious microcalcifications are seen. Stable post lumpectomy scarring and coarse calcifications. Stable small area of nodularity in the posterior, superior right breast . No skin thickening or abnormal axillary lymph nodes are seen. IMPRESSION: BI-RADS Category 2 - Negative Mammogram with benign findings. Bilateral screening mammography is recommended, due in 6 months. Breast Density - Category B, scattered fibroglandular densities. A negative radiographic report should not delay biopsy if a dominant or clinically suspicious mass is present. Up to ten percent of cancers are not identified on mammography. A negative report may reinforce clinical impression. Adenosis and dense breasts may obscure an underlying neoplasm. False positive reports average 6 to 10%. Patient will receive a letter notifying them of these results.
--- NOTE | 2022-09-18 08:01 | DI.US_ITS ---
Exam(s) US AAA DIAGNOSTIC EXAM: US AAA DIAGNOSTIC CLINICAL HISTORY: abnormal/incidental finding on x-ray, AAA, I71.40 COMPARISON: CT CT CHEST/ABD/PEL W from 03/21/2022 CR XR LUMBAR SPINE COMPLETE from 08/28/2022 FINDINGS: Abdominal Aorta: Proximal: 2.5 cm Mid: 2.0 cm Distal: 2.3 cm cm Iliacs: Right: 1.4 cm Left: 1.9 cm Abdominal aorta and iliac arteries heavily calcified IMPRESSION: Heavily calcified abdominal aorta and iliac arteries. Slight dilatation of the distal abdominal aort a to 2.3 cm compared to 2 cm in the midportion. Dilatation of the left common iliac artery to 1.9 cm . DATA REPOSITORY:
== END 2022-09-18 02:46 ==
LOC: DI 02:26
PROVIDERS: PCP Nurse Practitioner Family; Visit Provider Nurse Practitioner Family
DX: Z09 Encounter for follow-up examination after completed treatment for conditions other than malignant neoplasm; I70.8 Atherosclerosis of other arteries; Z12.31 Encounter for screening mammogram for malignant neoplasm of breast; R92.8 Other abnormal and inconclusive findings on diagnostic imaging of breast; Z90.12 Acquired absence of left breast and nipple
CPT/HCPCS: 77061; 77065; 76775; G0279

== ENCOUNTER 2022-10-02 01:32 | Outpatient (CLI) | payer OTHER, SELFPAY ==
--- NOTE | 2022-10-02 06:30 | DI.CT_ITS ---
Exam(s) CT CHEST/ABD/PEL W EXAM: CT CHEST/ABD/PEL W CLINICAL HISTORY: 6 month follow up,ENDOMETRIAL CA,C54.1 TECHNIQUE: Imaging Protocol: Axial computed tomography images with coronal and sagittal reformatted images were created and reviewed CONTRAST MATERIAL: Intravenous: Omnipaque 350 contrast volume:100 mL Oral: Yes COMPARISON: CT CT ABDOMEN PELVIS W from 01/31/[address] CHEST/ABD/PEL WO from 08/28/[address] CHEST/ABD/PEL W from 03/21/2022 FINDINGS: CHEST: Tracheobronchial tree: Patent where visualized. Pulmonary parenchyma: No consolidation or dominant measurable mass. No architectural distortion. The small peripheral opacity along the posterior aspect of the left lower lobe is unchanged. The lungs a re otherwise free of infiltrates or nodules. There is mild dependent atelectasis in the lungs. Visualized thyroid gland: There is again seen an enlarged heterogeneous thyroid gland. This is uncha nged. Mediastinum and Rissa: No dominant adenopathy or fluid collection. The esophagus is unremarkable. Pleura: No effusion or pneumothorax. Heart: The heart is not dilated. Moderately severe coronary artery calcification is present. No abeba cardial effusion. Pulmonary arteries: No pulmonary emboli are identified. Aorta: Thoracic aorta non-dilated. Atherosclerosis. No evidence of dissection. Lymph nodes: Within normal limits. Soft tissues: Unremarkable. Bones:Within normal limits for the patient's age. There is a right total reverse shoulder replacemen t. No aggressive osseous lesions are present. ABDOMEN: Liver: Normal density. No measurable mass. Portal, Superior Mesenteric, and Splenic Veins: Unremarkable. Gallbladder and Biliary Tract: Cholelithiasis. No biliary ductal dilatation. Pancreas: Normal density, no abnormal calcifications or inflammatory process. Spleen: Normal. Adrenals: No masses seen. Kidneys: Normal size, contour and axis. There is a 1-2 mm nonobstructing stone in the lower pole of t he left kidney. No masses seen. Abdominal Aorta: Abdominal portion non-dilated. Atherosclerosis. There is unchanged dilatation of th e common iliac artery. Bowel: No obstruction or bowel wall thickening. There is no evidence of appendicitis. There is duode nal diverticulum. There are few diverticula seen in the colon but no evidence of acute diverticuliti s. Peritoneal Cavity: No ascites, collection or mesenteric inflammatory response. No free air. Lymph Nodes: Within normal limits. Bones: Within normal limits for the patient's age. No aggressive osseous lesions are present. Soft Tissues: Unremarkable. PELVIS: Bladder: Symmetric distention, no gross wall thickening. Reproductive Organs: Post hysterectomy. Lymph Nodes: Within normal limits. Bones: Within normal limits. IMPRESSION: 1. No evidence of abdominal or pelvic metastatic disease. 2. No change in appearance of the chest compared to the prior examination. No definite evidence of t horacic metastatic disease. RADIATION DOSE DELIVERED: Total DLP DATA REPOSITORY: All CT scans at this facility are submitted to the National Radiology Data Registry (NRDR) Dose Index Registry (DIR) with the [employer] ([employer]). RADIATION OPTIMIZATION: All CT scans at this facility use at least one of these dose optimization te chniques: automated exposure control; mA and/or kV adjustment per patient size (includes targeted exa ms where dose is matched to clinical indication); or iterative reconstruction.
[2022-10-02] MEDS: Barium Sulfate 2% W/V-Berry Smoothie 450 ML BTL 900 ML PO (09:37)
[2022-10-02 09:44] LABS: CREATININE 1.2 mg/dL (0.55-1.02)
[2022-10-02] MEDS: Omnipaque 350 MG/ML 500 ML BTL-Imaging package 100 ML IJ (11:30)
[2022-10-02] MEDS: Normal Saline - Diluent 50 ML VIAL IJ (11:31)
== END 2022-10-02 01:52 ==
LOC: DI 01:32
PROVIDERS: PCP Nurse Practitioner Family; Visit Provider Nurse Practitioner Family
DX: C54.1 Malignant neoplasm of endometrium (principal); I70.0 Atherosclerosis of aorta; J98.11 Atelectasis
CPT/HCPCS: 74177; 71260; 82565

== ENCOUNTER 2022-10-14 02:55 | Outpatient (CLI) | payer OTHER, SELFPAY ==
[2022-10-14 12:20] LABS: HCT 43.4 % (36.0-46.0); HGB 14.3 g/dL (11.2-15.7); MCH 33.5 pg (27.0-33.0); MCHC 32.9 % (32.0-36.0); MCV 102 fL (80-95); MPV 10.4 fL (8.0-11.0); Platelet Count 196 10^3/uL (130-400); RBC 4.27 10^6/uL (3.93-5.22); RDW 14.1 % (11.7-14.6); RDW-SD 52.8 fL; WBC 6.22 10^3/uL (4.4-10.8)
[2022-10-14 12:34] LABS: Hemoglobin A1C 5.8 % (<5.7)
[2022-10-14 12:44] LABS: Anion Gap 6.7 mmol/L (3-11); BUN 51 mg/dL (7-18); CO2 28.3 mmol/L (21.0-32.0); CREATININE 1.2 mg/dL (0.55-1.02); Calcium 9.6 mg/dL (8.5-10.1); Calculated LDL 66 mg/dL (<100); Chloride 107 mmol/L (98-107); Cholesterol 132 mg/dL (<200); Glucose 116 mg/dL (74-106); HDL Cholesterol 46 mg/dL (40-60); Potassium 4.6 mmol/L (3.5-5.1); Sodium 142 mmol/L (136-145); TSH (W/Ref FT4) 0.91 uIU/mL (0.36-3.74); Triglyceride 103 mg/dL (<150)
== END 2022-10-14 02:56 | disposition home or self-care (01) ==
LOC: LOS 02:57
PROVIDERS: PCP Nurse Practitioner Family; Visit Provider Nurse Practitioner Family
DX: C80.1 Malignant (primary) neoplasm, unspecified (principal); E04.2 Nontoxic multinodular goiter; E11.9 Type 2 diabetes mellitus without complications; E78.5 Hyperlipidemia, unspecified; F32.9 Major depressive disorder, single episode, unspecified; G63 Polyneuropathy in diseases classified elsewhere; I10 Essential (primary) hypertension; I25.10 Atherosclerotic heart disease of native coronary artery without angina pectoris; I70.0 Atherosclerosis of aorta; L90.0 Lichen sclerosus et atrophicus; M10.9 Gout, unspecified; R19.00 Intra-abdominal and pelvic swelling, mass and lump, unspecified site; M54.50 Low back pain, unspecified
CPT/HCPCS: 36415; 80048; 80061; 85027; 83036; 84443

== ENCOUNTER → 2022-10-24 01:25 | Outpatient (CLI) | payer OTHER, SELFPAY ==
--- NOTE | 2022-10-24 08:30 | DI.MRI_ITS ---
Exam(s) MR LOWER JOINT LT WO EXAM: MR LOWER JOINT LT WO CLINICAL HISTORY: LT HIP AND LOW BACK PAIN, M25.552 TECHNIQUE: Multiplanar multisequence MRI of Pelvis was performed COMPARISON: CR XR HIP LT COMPLETE AP PELVIS from 08/28/2022 FINDINGS: Bones: There is no fracture or contusion pattern. No bone marrow edema is seen. Joints: No significant joint effusion or gross labral defect is present. No labral cysts. The SI joints are unremarkable. Spurring at the pubic symphysis.. Musculotendinous structures: Mild edema at the distal gluteus medius tendon could indicate tendiniti s or partial tear. Symmetric muscle atrophy, likely secondary to disuse. Intrapelvic structures: 2.7 centimeter cyst in the left side of the lower vagina, likely Bartholin cyst. Status post hystere ctomy. Urinary bladder nearly empty. Mild sigmoid diverticulosis. IMPRESSION: Question tendinitis versus partial tear at the gluteus medius tendon insertion. DATA REPOSITORY:
== END ==
PROVIDERS: PCP Nurse Practitioner Family; Visit Provider Nurse Practitioner Family
DX: I10 Essential (primary) hypertension (principal); M25.552 Pain in left hip; M54.50 Low back pain, unspecified
CPT/HCPCS: 73721

== ENCOUNTER → 2022-10-28 01:34 | Outpatient (CLI) | payer OTHER, SELFPAY ==
--- NOTE | 2022-10-28 06:30 | DI.MRI_ITS ---
Exam(s) MR LUMBAR SPINE WO EXAM: MR LUMBAR SPINE WO CLINICAL HISTORY: low back pain, left hip pain,m54.50. TECHNIQUE: Multiplanar multisequence MRI of the Lumbar spine was performed. COMPARISON: CR XR LUMBAR SPINE COMPLETE from 08/28/2022 FINDINGS: Bones: The last intervertebral disc space is designated the L5/S1 level for the numbering purpose of this examination. The vertebral body heights are well maintained. Alignment: Moderate degenerative levoscoliosis.. The signal marrow characteristics are unremarkable. Cord: The conus tip ends at the T12 level. It is of normal size and signal intensity. T12-L1: Mild loss of disc height. Mild broad-based disc osteophytes. No central spinal canal or dusty ral foraminal stenosis. L1-2: No disc herniations or bulges are present. No central spinal canal or neural foraminal stenosis . L2-3: Marked loss of disc height and circumferentially projecting osteophytes. No central spinal can al stenosis. Mild right neural foraminal narrowing. L3-4: Loss of disc height, broad-based disc bulging eccentric toward the right. Mild facet degenerat marco changes. Mild right neural foraminal narrowing. No central canal stenosis. L4-5: Disc bulging and endplate osteophytes eccentric toward the left. Facet degenerative changes an d ligamentous hypertrophy. Slight central canal stenosis. Severe left neural foraminal narrowing. No significant right neural foraminal narrowing. L5-S1: No disc herniations or bulges are present. No central spinal canal or neural foraminal stenosi s. Facet degenerative changes present. This causes slight spondylolisthesis. The visualized SI joints and sacrum are well maintained. Soft tissues: The paraspinal soft tissues are unremarkable. IMPRESSION: Multilevel degenerative disc changes and facet degenerative changes. Neural foraminal narrowing grea test on the left at L4-5. Slight central canal stenosis at L4-5. No focal disc herniation at any le isai.. DATA REPOSITORY:
== END ==
PROVIDERS: PCP Nurse Practitioner Family; Visit Provider Nurse Practitioner Family
DX: M47.816 Spondylosis without myelopathy or radiculopathy, lumbar region (principal); M99.63 Osseous and subluxation stenosis of intervertebral foramina of lumbar region
CPT/HCPCS: 72148

== ENCOUNTER → 2022-12-17 10:31 | Outpatient (BNVA) | payer OTHER, SELFPAY | PROVIDERS: PCP Nurse Practitioner Family; Referring Provider Nurse Practitioner Family; Visit Provider Surgery | DX: Z12.11 Encounter for screening for malignant neoplasm of colon (principal) ==

== ENCOUNTER 2023-01-05 06:31 | Day surgery (SDC) | payer OTHER, SELFPAY ==
--- NOTE | 2023-01-04 19:15 | W.PM.DSUDISC ---
Date of service: 01/05/23 Time of Service: 08:09 Discharge Plan Disposition Patient Disposition: Home Condition: Good Discharge Details Reason For Visit: Screening colonoscopy Attending Provider: Terrell Morris Primary Care Provider: Arin Griggs Home Meds and New Rx's Prescriptions: Continued turmeric root extract 500 mg capsule 1,000 mg PO DAILY citalopram 10 mg tablet 10 mg PO DAILY Qty: 30 0RF Rx Instructions: Take 10 mg every day for two weeks, then every other day for 1 week and then stop fluoxetine 10 mg capsule 10 mg PO DAILY Qty: 90 3RF Rx Instructions: Take 10 mg daily for 2 weeks and then increase to 20 mg (2 capsules daily) daily until next visit. ibuprofen 200 mg capsule 200 mg PO Q6H PRN Patient Comments: pt states she takes 3 to 4 pills 6-8 hours apart. Shingrix (PF) 50 mcg/0.5 mL suspension for reconstitution 0.5 ml IM ONCE Qty: 1 0RF Rx Instructions: as a single dose vitamin B complex [B Complex-Vitamin B12] tablet 1 tab PO DAILY cholecalciferol (vitamin D3) 1,000 unit capsule 1,000 unit PO DAILY ascorbic acid (vitamin C) 500 mg capsule 500 mg PO DAILY omega-3 fatty acids 1,000 mg capsule 1,000 mg PO DAILY Complete Multivitamin tablet 1 tab PO DAILY meclizine 25 mg tablet 25 mg PO TID PRN (Reason: dizziness) Qty: 30 0RF aspirin 81 MG tablet,chewable 81 mg PO DAILY magnesium oxide 500 mg capsule 500 mg PO DAILY allopurinol 300 mg tablet 300 mg PO DAILY Qty: 90 3RF atorvastatin 40 mg tablet 40 mg PO DAILY Qty: 90 3RF clobetasol 0.05 % ointment 1 applic Topical bid PRN (Reason: lichen sclerosis) Qty: 30 2RF Rx Instructions: apply to vaginal rash prn metformin 500 mg tablet 500 mg PO HS Qty: 90 4RF losartan [Cozaar] 25 mg tablet 25 mg PO DAILY Qty: 60 7RF metoprolol tartrate 100 mg tablet 100 mg PO BID Qty: 180 3RF omeprazole 40 mg capsule,delayed release(DR/EC) 40 mg PO HS Qty: 90 4RF naproxen 500 mg tablet 500 mg PO BID PRN (Reason: pain) Qty: 60 3RF tramadol 50 mg tablet 50 mg PO TID PRN (Reason: pain) Qty: 30 0RF colchicine (gout) [Colcrys] 0.6 mg tablet 0.6 - 1.2 mg PO as directed MDD 1.8mg PRN Rx Instructions: Take 2 tablets at onset of symptoms and 1 tablet one hour later. acetaminophen 325 mg capsule 325 mg PO Q6H PRN melatonin 10 mg capsule 10 mg PO HS PRN Discontinued docusate sodium [Dulcolax Stool Softener (dss)] 100 mg capsule 100 mg PO .COMPLEX Qty: 6 0RF Rx Instructions: Take 1 capsule by mouth in the morning, and 1 capsule by mouth in the evening 2 days before your colonoscopy. Take the remaining capsules according to the instructions of your bowel prep polyethylene glycol 3350 [Miralax] 17 gram/dose powder 17 g PO .COMPLEX Qty: 238 0RF Rx Instructions: Take according to your bowel prep instructions Discharge Instructions Instructions: Diverticulosis (GEN), Diverticulosis Diet (GEN) Additional Instructions: Gem, we were able to complete your colonoscopy today without any difficulty. I did not see any signs of tumors or polyps. Incidentally, I did see some diverticulosis. Diverticula are weak spots in the colon wall that typically accumulate with age. They can become infected and inflamed. During those times, patients typically have bad sided left lower abdominal pain that is typically associated with fevers. On those occasions, patient should probably be treated with antibiotics. I have attached some general information here regarding diverticular diseases and typical management approaches. If you have any questions at all, please do not hesitate to call me at any time. Otherwise, I would recommend considering another colonoscopy in 10 years. 1. If tolerated, consume a soft, low fiber diet for 1-2 days. 2[address] Do not drive, drink alcohol, operate machinery, make critical decisions, or do activities that require coordination or balance for 24 hours. 3. Because air was put into your colon during the procedure, expelling air from your rectum (passing gas or farting) is normal. 4. You may not have a bowel movement for 1-3 days because of the colonoscopy prep. This is normal. 5. Go directly to the emergency room if you notice any of the following: Develop chills (warm to touch), or if you have a thermometer and your temperature is above 101 Difficulty breathing or difficultly swallowing Persistent vomiting Severe abdominal pain, other than gas cramps Severe chest pain Black, tarry stools Any bleeding ? exceeding one tablespoon 6. Call your physician if the site where your intravenous was started becomes red, swollen, painful, and warm to touch. 7. Your physician has reviewed your pre-procedure medications. Please continue to take those medications as previously ordered. You will be given specific information/education regarding any changes to your medications before leaving. Activity:: Activity as Tolerated Diet:: As Tolerated Discharge Orders Discharge Orders: Discharge Order (Routine); Ordered 01/04/23 Ordered By: Terrell Morris DS: Diagnosis Discharge Diagnosis (1) Screen for colon cancer: Status: Acute Asessment and Plan: Negative screening colonoscopy
--- NOTE | 2023-01-04 19:17 | W.COLOREPORT ---
Date of service: 01/05/23 Time of Service: 08:11 Colonoscopy Report Date of procedure: 01/05/23 Pre-op diagnosis general: Screening colonoscopy Post-op diagnosis procedure note: other (Diverticulosis) Procedure: Colonoscopy Surgeon: Terrell Morris Anesthesia Type: General:No Airway Estimated blood loss (mL): 0 Pathology: none sent Complications: None Disposition: same day Indications: Gem is a 72 year old woman who needs another screening colonoscopy Prep: Miralax/Dulcolax Procedure Start Time: 07:30 Procedure End Time: 07:51 Retraction Time: 16 Findings: Diverticulosis Procedure Description: After the induction of monitored anesthetic care, and with the patient in left lateral decubitus position, I began by performing an external anorectal exam.? Perineum and skin were normal, as was the anal verge.? There was no evidence of external hemorrhoids.? Next, I performed a digital rectal exam.? I did not appreciate any abnormal findings.? Next, I advanced a colonoscope into the rectal vault.? I performed retroflexion.? There were very mild internal hemorrhoids. I do not believe they are big enough to warrant banding.? Using insufflation, I then advanced the colonoscope beyond the rectal folds and into the sigmoid colon before advancing towards the cecum.? There was sigmoid diverticulosis, as well as diverticula extending into the left colon. There were some occasional diverticula along the transverse and ascending colon's as well.? The scope was noted to be in the cecum by identification of the ileocecal valve and appendiceal orifice.? I then began withdrawing the colonoscope using repeated irrigation as necessary for full evaluation of the colonic mucosa. Around 65 cm from the anal verge, there was an elevated piece of mucosal tissue. At first, it did appear consistent with a polyp, however, with manipulation, it was clear that this actually was just an inverted diverticula. Once the scope was withdrawn to the level of the rectum, great care was taken to examine portions of the rectal folds.? The quality of the prep by way of the [place] prep score was 3, 3, 3 from right to left .finally, the scope was withdrawn and the patient was brought to the same-day surgery recovery unit as the anesthetic wore off. ?The findings and instructions were shared with the patient prior to discharge.
[2023-01-05 06:42] VITALS: BP 146/92; PULSE 83; RESP 17; TEMP 36.1; O2SAT 97
--- NOTE | 2023-01-05 06:54 | W.ANESPRE ---
General Info Date of Service Date Performed: 01/05/23 Height: 5 ft 5 in Weight: 88.2 kg Body Mass Index (BMI): 32.3 Surgical Procedure: Operation Date: 01/05/23 07:40 Proposed Procedure Side Surgeon p Colonoscopy Terrell Morris MD s Possible Hemorrhoid Banding Terrell Morris MD Meds Allergies and Home Medications Allergies Allergy/AdvReac Type Severity Reaction Status Date / Time adhesive Allergy Verified 01/05/23 06:44 codeine AdvReac Intermediate VOMITING Verified 01/05/23 06:44 YENIFER Inhibitors AdvReac Unknown COUGH Verified 01/05/23 06:44 Fluroqueinolones AdvReac Intermediate Tendonitis Uncoded 01/05/23 06:44 Home Medication Medication Instructions Recorded aspirin 81 mg chewable tablet 81 mg PO DAILY 11/11/17 ascorbic acid (vitamin C) 500 mg 500 mg PO DAILY 06/30/18 capsule cholecalciferol (vitamin D3) 25 1,000 unit PO DAILY 06/30/18 mcg (1,000 unit) capsule multivitamin,[id number]-[id number] 1 tab PO DAILY 06/30/18 (Complete Multivitamin tablet) omega-3 fatty acids 1,000 mg 1,000 mg PO DAILY 06/30/18 capsule vitamin B complex (B 1 tab PO DAILY 06/30/18 Complex-Vitamin B12 tablet) meclizine 25 mg tablet 25 mg PO TID PRN dizziness #30 tabs 03/23/20 magnesium oxide 500 mg capsule 500 mg PO DAILY 08/29/20 colchicine (gout) 0.6 mg tablet 0.6 - 1.2 mg PO as directed PRN 01/31/21 (Colcrys) turmeric root extract 500 mg 1,000 mg PO DAILY 03/28/21 capsule allopurinol 300 mg tablet 300 mg PO DAILY #90 tabs 04/17/22 atorvastatin 40 mg tablet 40 mg PO DAILY #90 tab-caps 04/17/22 clobetasol 0.05 % topical ointment 1 applic topical bid PRN lichen 04/17/22 sclerosis #30 grams losartan 25 mg tablet (Cozaar) 25 mg PO DAILY #60 tabs 04/17/22 metformin 500 mg tablet 500 mg PO HS #90 tabs 04/17/22 metoprolol tartrate 100 mg tablet 100 mg PO BID #180 tabs 04/17/22 omeprazole 40 mg capsule,delayed 40 mg PO HS #90 caps 04/17/22 release naproxen 500 mg tablet 500 mg PO BID PRN pain #60 tabs 05/22/22 citalopram 10 mg tablet 10 mg PO DAILY #30 tabs 07/03/22 fluoxetine 10 mg capsule 10 mg PO DAILY #90 caps 07/03/22 varicella-zoster glycoE [id number] 0.5 ml IM ONCE #1 ea 07/18/22 adj(PF) 50 mcg/0.5 mL IM susp, kit (Shingrix (PF)) ibuprofen 200 mg capsule 200 mg PO Q6H PRN 10/06/22 tramadol 50 mg tablet 50 mg PO TID PRN pain #30 tabs 12/01/22 acetaminophen 325 mg capsule 325 mg PO Q6H PRN 01/05/23 melatonin 10 mg capsule 10 mg PO HS PRN 01/05/23 Current Visit Medications: Current Medications Generic Name Dose Route Start Last Admin Trade Name Freq PRN Reason Stop Dose Admin Hyoscyamine Sulfate 0.125 mg 01/04/23 19:18 Hyoscyamine 0.125 Mg Sl/Oral/Chew SL 02/03/23 19:17 DIRECTED PRN Ringer's Solution 1,000 mls @ 80 mls/hr 01/05/23 06:00 IV 02/01/23 23:59 INFUSION [facility] IV Miscellaneous Supplies 1 each 01/05/23 06:00 Iv Access IV 02/01/23 23:59 DIRECTED [facility] Ondansetron HCl 4 mg 01/04/23 19:18 Ondansetron 4 Mg/2 Ml Vial IVP 02/03/23 19:17 Q4H PRN PRN Nausea / Vomiting Sodium Chloride 0 ml 01/05/23 06:00 Normal Saline Flush 10 Ml Syr IV 02/01/23 23:59 PRN PRN Sodium Chloride 0 ml 01/05/23 06:00 Normal Saline 10 Ml Vial IJ 02/01/23 23:59 DIRECTED PRN Sterile Water 0 ml 01/05/23 06:00 Water,Injection,Sterile 10 Ml Vial IJ 02/01/23 23:59 DIRECTED PRN PFSH Active Problems Active Problems: Problem Status Onset Code Screen for colon cancer Z12.11 Calcification of abdominal aorta I70.0 Onychogryphosis L60.2 Callus L84 Bunion of left foot M21.612 Pelvic mass R19.00 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 BPV (benign positional vertigo) Rash 11[place] [facility] [place]hen [place] Arthritis of right shoulder region 2019- replaced Rotator cuff tear, right Gout Hypertension Diabetes mellitus Depression Loose body of right shoulder Tendonitis of long head of biceps brachii of right shoulder Calcific shoulder tendinitis Low magnesium level Shoulder pain, right Vitreous degeneration (04/26/12) [facility]- yearly 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; 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,INVASIVE DUCTAL CA R mammos yearly 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 disease of colon (01/05/13) Acute myocardial infarction of inferior wall 2017-stent placement Surgical History Surgical History S/P Achilles tendon repair Ligation of fallopian tube Extraction of cataract left 2002; right 2003 Breast, Lumpectomy (~2004) Tobacco Smoking/Tobacco Use Status: Former Tobacco Use Passive smoking exposure: Yes Second hand exposure: Yes Alcohol Alcohol Intake: never Substance Use Substance use: Never Substance use type: marijuana Details: no alcohol for 30 years Prental History History 3 Para Hx # Term Pregnancies 2 Multiple births Hx # Pregnancies Ectopic pregnancies 1 AB induced Hx Number of Living Children AB spontaneous Vital Signs and Lab Results Vital Signs Most Recent Vital Signs in EMR: Most Recent Vital Signs Temp Pulse Resp BP Pulse Ox 36.1 C L 83 17 146/92 H 97 01/05/23 06:42 01/05/23 06:42 01/05/23 06:42 01/05/23 06:42 01/05/23 06:42 Lab Results Blood Type / Crossmatch: No Data to Display Complete Blood Count: No Data to Display Complete Metabolic Panel: No Data to Display Liver Function Panel: No Data to Display Coagulation Panel: No Data to Display Cardiac Panel: No Data to Display Arterial Blood Gas: No Data to Display Venous Blood Gas: No Data to Display Pancreas Panel: No Data to Display Thyroid Panel: No Data to Display Infectious Disease: No Data to Display Blood Cultures: No Data to Display Toxicology Panel: No Data to Display Imaging and Studies Imaging and Studies Study information below may be from another EMR and interpreted by another provider. Please see original notes in EMR for more complete details. EKG Summary: Conclusion Sinus rhythm...normal P axis, V-rate 50- 99 Left ventricular hypertrophy...multiple voltage criteria Old anterior infarct 07/22/22 Stress Test Summary: Impressions: - Test changed to pharmacological test because target heart rate was not achieved. - Study suggests small to moderate myocardial infarction, with minimal overall ischemia in the territory of the left anterior descending coronary artery. - Low risk of cardiac events. Summary: 1. Myocardial perfusion imaging: There is a moderate sized, moderately intense, fixed defect involving the apical anterior, apical lateral, and apical wall(s). This suggests moderate myocardial infarction in the distribution of the left anterior descending coronary artery. Overall ischemia: minimal. 2. The calculated left ventricular ejection fraction after stress: 49%. LV global systolic function is mildly reduced. Diffuse left ventricular regional motion abnormalities. 3. Stress ECG conclusions: The stress ECG is negative to less than 85% MPHR. 4. Stress: The target heart rate was not achieved. There is a normal resting blood pressure with an appropriate response to stress. Stress-induced atypical chest pain. Exercise capacity is average for age. 5. Treadmill exercise testing was performed using the Tim protocol. The patient exercised for 5 min 49 sec, to protocol stage 2, to a maximal work rate of 7mets. Exercise was terminated due to bilateral arm discomfort. Echocardiogram Summary: STUDY CONCLUSIONS* Summary: 1. Left ventricle: The cavity size was normal. The estimated ejection fraction was 50%. There was an increased relative contribution of atrial contraction to ventricular filling. 2. Mitral valve: There was mild to moderate regurgitation. Valve area by pressure half-time: 1.5cm^2. 3. Left atrium: The atrium was mildly dilated. 4. Right ventricle: The cavity size was normal. Wall thickness was normal. Systolic function was normal. 5. Atrial septum: There was a small patent foramen ovale. There was a small xvmj-sj-cxnph atrial level shunt. 6. Pulmonary arteries: Pulmonary systolic pressure was in the range of 20mm Hg to 30mm Hg. 7. Inferior vena cava: The vessel was normal in size. The respirophasic diameter changes were in the normal range (greater than or equal to 50%), consistent with normal central venous pressure. 09/22/16 Anesthesia Assessment and Plan Anesthesia History Personal History: No History of Anesthesia Complications Family History: No Family History of Anesthesia Complications and Family History Unknown Exercise Tolerance Exercise Tolerance: Metabolic Equivalents>4 Pertinent Negatives Pertinent Negatives: No Major Cardiovascular Symptoms or Complaints and No Major Pulmonary Symptoms or Complaints Cardiac & Pulmonary Exam Cardiac Exam: Normal S1/S2 Heart Sounds Pulmonary Exam: Clear Bilateral Breath Sounds Implantable Cardiac Device Does patient have a Pacemaker or an ICD?: No Airway Exam Known Difficult Airway: No Mallampati Class: 3 Mouth Opening: Narrow (< 3cm) Thyromental Distance: Less than 3 cm Neck Range of Motion: Full ROM Neck Circumference: Normal Teeth Condition: Removable Dentures/Plates Upper and Removable Dentures/Plates Lower (partial) ASA Classification ASA Score: ASA 3 Emergency Case?: No NPO Status NPO Status: NPO Clears >2 hours, Solids >8 hours Anesthesia Plan Resuscitation Status: Full Code Anesthesia Technique: General Anesthesia Airway Planned: Natural Airway Monitors Used: Standard Monitors Preoperative Comments:: BS 118
[2023-01-05] MEDS: Lactated Ringers 1,000 ML 80 ML IV (06:55)
[2023-01-05 07:23] VITALS: BMI 32.3
[2023-01-05 08:00] VITALS: BP 111/66; PULSE 66; RESP 17; TEMP 36.4; O2SAT 97
[2023-01-05 08:30] VITALS: BP 115/56; PULSE 64; TEMP 36.5; O2SAT 97
--- NOTE | 2023-01-05 09:03 | W.ANESPOSTOP ---
Postoperative Evaluation Date, Time and Location Date Performed: 01/05/23 Time Performed: 08:06 Patient Location: Day Surgery Unit Vital Signs Most Recent Imported Vital Signs: Most Recent Vital Signs Temp Pulse Resp BP Pulse Ox 36.5 C 64 17 115/56 L 97 01/05/23 08:30 01/05/23 08:30 01/05/23 08:00 01/05/23 08:30 01/05/23 08:30 Pain Score Most Recent Pain Score: Most Recent Pain Score Pain Level 0 01/05/23 08:30 Assessment Mental Status: Awake (Alert & Oriented to Patient Baseline) Airway and Respiratory Function: Patent airway with normal (patient baseline) respiratory exam Cardiovascular Function: Hemodynamically Stable Hydration Status: Adequately Hydrated Nausea & Vomiting: No Nausea or Vomiting Pain: Pt. Denies Any Pain Peripheral Nerve Block: Patient did not receive a nerve block
== END 2023-01-05 08:49 | disposition home or self-care (01) ==
LOC: SUR 06:32
PROVIDERS: PCP Nurse Practitioner Family; Visit Provider Surgery
PROC: 0DJD8ZZ Inspection of Lower Intestinal Tract, Via Natural or Artificial Opening Endoscopic (ICD-10-PCS; CPT 45378; principal; 2023-01-05 07:30)
DX: Z12.11 Encounter for screening for malignant neoplasm of colon (principal); K57.30 Diverticulosis of large intestine without perforation or abscess without bleeding
CPT/HCPCS: G0121; J2001; J2405

== ENCOUNTER → 2023-07-21 09:09 | Outpatient (BNVA) | payer OTHER, SELFPAY | PROVIDERS: PCP Nurse Practitioner Family; Referring Provider Nurse Practitioner Family; Visit Provider Internal Medicine Cardiovascular Disease | DX: I25.10 Atherosclerotic heart disease of native coronary artery without angina pectoris (principal) | CPT/HCPCS: 99213 ==

== ENCOUNTER 2023-10-20 02:32 | Outpatient (CLI) | payer OTHER, SELFPAY ==
[2023-10-20 12:21] LABS: Anion Gap 7.8 mmol/L (3-11); BUN 46 mg/dL (7-18); CO2 29.2 mmol/L (21.0-32.0); CREATININE 1.7 mg/dL (0.55-1.02); Calcium 9.8 mg/dL (8.5-10.1); Calculated LDL 72 mg/dL (<100); Chloride 102 mmol/L (98-107); Cholesterol 142 mg/dL (<200); Estimated GFR 31.27 (mL/min/1.73m2); Glucose 112 mg/dL (74-106); HDL Cholesterol 52 mg/dL (40-60); Potassium 5.1 mmol/L (3.5-5.1); Sodium 139 mmol/L (136-145); TSH (W/Ref FT4) 0.69 uIU/mL (0.36-3.74); Triglyceride 91 mg/dL (<150)
[2023-10-20 18:51] LABS: Hemoglobin A1C 5.9 % (<5.7)
== END 2023-10-20 02:33 | disposition home or self-care (01) ==
LOC: LBO 02:32
PROVIDERS: PCP Nurse Practitioner Family; Visit Provider Nurse Practitioner Family
DX: E11.9 Type 2 diabetes mellitus without complications (principal); F32.9 Major depressive disorder, single episode, unspecified; I10 Essential (primary) hypertension; I25.10 Atherosclerotic heart disease of native coronary artery without angina pectoris; E78.5 Hyperlipidemia, unspecified; E04.2 Nontoxic multinodular goiter; R19.00 Intra-abdominal and pelvic swelling, mass and lump, unspecified site; M10.9 Gout, unspecified; C80.1 Malignant (primary) neoplasm, unspecified; G63 Polyneuropathy in diseases classified elsewhere; L90.0 Lichen sclerosus et atrophicus; Z00.00 Encounter for general adult medical examination without abnormal findings
CPT/HCPCS: 36415; 80048; 80061; 83036; 84443

== ENCOUNTER → 2023-10-21 01:52 | Outpatient (CLI) | payer OTHER, SELFPAY ==
--- NOTE | 2023-10-21 06:45 | DI.MAMMO_ITS ---
Exam(s) MG MAMMO SCREENING 60 MIN DUR EXAM: MG MAMMO SCREENING 60 MIN DUR CLINICAL HISTORY: breast cancer screening,personal h/o breast ca,z12.39. TECHNIQUE: Bilateral full field digital CC and MLO mammographic images were obtained with 3D tomosyn thesis and utilizing computer aided detection (CAD). COMPARISON: Prior mammograms were reviewed. This patient underwent right breast lumpectomy in 2005. FINDINGS: There has been no significant change in the appearance and distribution of the fibroglandular tissue. Scarring and dystrophic calcification at the right breast lumpectomy site remain unchanged. Also unc hanged is the previously described asymmetric density posteriorly in the right breast. There are no new spiculated masses nor malignant appearing microcalcification groups. Small benign-appearing nodule anteroinferiorly in the left breast is unchanged from 2014. IMPRESSION: Stable benign-appearing findings in both breasts. Stable appearance of right breast lumpectomy site (2005) BI-RADS Category 2 - Benign Findings Breast Density - Category B - Scattered areas of fibroglandular density Breast density Category C or D implies that the patient has dense breast tissue. Dense breast tissue can make it harder to find cancer on a mammogram. Dense breast tissue is also associated with an incr eased risk of breast cancer. This information about the result of the mammogram report was provided to the patient to raise their awareness. Use this report when you speak with the patient about their risks for breast cancer, which includes their family history. At that time, you may recommend additional screening tests (Ultrasoun d or MRI) as these tests may add significant information. A negative radiographic report should not delay biopsy if a dominant or clinically suspicious mass is present. Up to ten percent of cancers are not identified on mammography. A negative report may reinforce clinical impression. Adenosis and dense breasts may obscure an underlying neoplasm. False positive reports average 6 to 10%. Patient will receive a letter notifying them of these results.
== END ==
PROVIDERS: PCP Nurse Practitioner Family; Visit Provider Nurse Practitioner Family
DX: Z12.39 Encounter for other screening for malignant neoplasm of breast (principal); Z12.31 Encounter for screening mammogram for malignant neoplasm of breast
CPT/HCPCS: 77063; 77067

== ENCOUNTER 2023-11-06 20:58 | Emergency (ER) | payer OTHER, SELFPAY ==
[2023-11-06] VITALS (15 sets, daily range): BP systolic 121–144; BP diastolic 51–79; PULSE 52–59; RESP 12–16; TEMP 36.3; O2SAT 96–99
--- NOTE | 2023-11-06 20:45 | RT.EKG_ITS ---
APPROVED REPORT Exam: Resting ECG Reason for Exam: ekg verify Patient Location: E HR:56 bpm ECG Measurements Heart Rate 56 AXIS UT 217 P -3 QRSd 89 QRS 73 QT 455 T 13 QTc 440 Conclusion Sinus bradycardia Rate 56 1st degree HB with UT interval 217 Q waves V1, V2 No STEMI
[2023-11-06] MEDS: Lactated Ringers 1,000 ML 1000 ML IV (21:27)
[2023-11-06 21:30] LABS: Abs Immature Grans 0.01 10^3/uL (0.0-0.06); Absolute Basophil Count 0.04 10^3/uL (0.0-0.2); Absolute Eosinophil Count 0.22 10^3/uL (0.0-0.7); Absolute Lymphocyte Count 1.12 10^3/uL (1.2-3.4); Absolute Monocyte Count 0.52 10^3/uL (0.1-0.8); Absolute Neutrophil Count 3.17 10^3/uL (1.2-6.7); Basophils % 0.8 %; Eosinophils % 4.3 %; HCT 42.3 % (36.0-46.0); HGB 13.9 g/dL (11.2-15.7); Immature Grans % 0.2 %; MCH 33.7 pg (27.0-33.0); MCHC 32.9 % (32.0-36.0); MCV 103 fL (80-95); Monocytes % 10.2 %; Neutrophils % 62.5 %; Platelet Count 167 10^3/uL (130-400); RBC 4.12 10^6/uL (3.93-5.22); RDW 13.7 % (11.7-14.6); RDW-SD 51.7 fL; WBC 5.08 10^3/uL (4.4-10.8)
--- NOTE | 2023-11-06 21:41 | ED.GENADUL_ITS ---
Discharge Plan Disposition Patient Disposition: Home Condition: Stable Discharge Details Chief Complaint: [id number] Clinical Impression: Syncope, vasovagal, Hyperlipidemia, CAD (coronary artery disease), Diabetes mellitus, Essential hypertension, CKD (chronic kidney disease) Primary Care Provider: Arin Griggs ED Provider: Laura Rachel Home Meds and New Rx's Prescriptions: No Action turmeric root extract 500 mg capsule 1,000 mg PO DAILY citalopram 10 mg tablet 10 mg PO DAILY Qty: 30 0RF Rx Instructions: Take 10 mg every day for two weeks, then every other day for 1 week and then stop ibuprofen 200 mg capsule 200 mg PO Q6H PRN Patient Comments: pt states she takes 3 to 4 pills 6-8 hours apart. Shingrix (PF) 50 mcg/0.5 mL suspension for reconstitution 0.5 ml IM ONCE Qty: 1 0RF Rx Instructions: as a single dose vitamin B complex [B Complex-Vitamin B12] tablet 1 tab PO DAILY cholecalciferol (vitamin D3) 1,000 unit capsule 1,000 unit PO DAILY ascorbic acid (vitamin C) 500 mg capsule 500 mg PO DAILY omega-3 fatty acids 1,000 mg capsule 1,000 mg PO DAILY Complete Multivitamin tablet 1 tab PO DAILY naproxen 500 mg tablet 500 mg PO BID PRN (Reason: pain) Qty: 60 3RF atorvastatin 40 mg tablet 40 mg PO DAILY Qty: 90 3RF metformin 500 mg tablet 500 mg PO HS Qty: 90 4RF omeprazole 40 mg capsule,delayed release(DR/EC) 40 mg PO HS Qty: 90 4RF losartan 50 mg tablet 50 mg PO DAILY Qty: 90 3RF aspirin 81 MG tablet,chewable 81 mg PO DAILY magnesium oxide 500 mg capsule 500 mg PO DAILY clobetasol 0.05 % ointment 1 applic Topical bid PRN (Reason: lichen sclerosis) Qty: 30 2RF Rx Instructions: apply to vaginal rash prn biotin 5 mg capsule 10 mg PO DAILY allopurinol 300 mg tablet 300 mg PO DAILY Qty: 90 3RF fluoxetine 20 mg capsule 20 mg PO DAILY Qty: 90 3RF metoprolol tartrate 100 mg tablet 100 mg PO BID Qty: 180 3RF acetaminophen 325 mg capsule 325 mg PO Q6H PRN melatonin 10 mg capsule 10 mg PO HS PRN Discharge Instructions Instructions: Syncope (Fainting) (DC) Additional Instructions: You were seen in the emergency department today for evaluation after a fainting episode, and had a full physical examination and reassuring laboratory studies, the you have evidence of kidney dysfunction that has been present for some time. I recommend good hydration and nutrition and follow-up with your primary care provider in the next few days to discuss this visit and the symptoms that change, worsen, or persist. Please return to the emergency department if you have any concerns and thank you for allowing us to be part of your care. HPI General Date/Time Provider Initiated Documentation: 11/06/23 21:00 . Limitations to Documentation: no limitations . Information obtained by: patient, family and old records reviewed . HPI Meagan pickard: MDM: In brief, this is a 72-year-old female patient presenting for evaluation of a syncopal episode this evening. Reassuringly, the patient did not sustain head strike. Differential includes but is not limited to vasovagal syndrome, orthostasis, medication effect, anemia, metabolic and electrolyte derangements, kidney injury, liver disease. The patient's knees are tender in the anterior position but had full range of motion, and no difficulty with bearing weight to suggest fracture, dislocation, ligamentous injury. The patient is without chest pain to suggest ACS though I did consider arrhythmia. She had no reported postictal time or tonic-clonic activity to suggest seizure. She is without neuro deficit on my physical examination to suggest stroke. We will proceed with laboratory studies to include CBC, CMP, magnesium, troponin, will provide her with a liter of IV fluids and obtain an EKG. ED Course: I reviewed the patient's laboratory studies, which reveal no leukocytosis, anemia or thrombocytopenia. Chemistry panel is without electrolyte derangement, the patient has evidence of baseline kidney dysfunction, BUN to creatinine ratio is greater than 20-1 but this has been typical over numerous checks over the last several months to years. She has no evidence of significant liver dysfunction. Troponin was negative, and I reviewed her EKG which shows no evidence of ischemia, interval abnormality, or ectopy. On reassessment after fluids, the patient reports that she is no longer experiencing any lightheadedness. The patient ambulated successfully and is desiring of discharge. She has follow-up with her primary care provider for lab redraw on Thursday and to discuss any other changes to her medications that need to be made. At this time, the patient has had a full medical evaluation and is safe for discharge to home. They are hemodynamically stable, ambulatory, and tolerating PO. They are understanding of the follow-up plan and return precautions. They left our facility without incident. Laura Rachel MD HPI: This is a 72-year-old female patient with a past medical history significant for CAD, hyperlipidemia, hypertension, and diabetes, presenting for evaluation after syncopal episode. Patient reports that she has a history of frequent mechanical falls, often tripping over her feet and has trained herself to land on her knees. She reports that tonight she was getting up from the table and she tripped over the leg, falling forward onto her bilateral knees. She reports that when this happens she typically has significant pain, and is able to get her self up with significant effort. She states that when she fell her heard and came into the room to assist her. While attempting to get up she began to feel very lightheaded, and experienced a loss of consciousness witnessed by her , who was able to catch her head and cradle it without letting it hit the floor. She awoke and states that she was still feeling dizzy, and while attempting to get up had another episode of syncope. The patient reports that she changed her dose of losartan 3 weeks ago, increasing it slightly. She has not had any other changes to her health or medications. She reports that she does not drink quite enough water and is worried that she does not stay hydrated. She has not had fevers or chills, did not have any headache or vision changes during this event, and has not had any chest pain or palpitations. Exam: Gen: awake and alert, in no apparent distress. Appears well nourished. HEENT: PERRL, EOMs full and without nystagmus. External ears and nose normal, mucous membranes moist. Neck: Supple, full range of motion, no observable masses. no midline tenderness or step-offs of the C-spine Lungs: No increased work of breathing, lung sounds clear and equal bilaterally CV: Heart with regular rate and rhythm. Strong and symmetrical radial pulses. Abdomen: Soft, nondistended, non-tended to palpation. No rigidity, rebound tenderness, or guarding. MSK: No joint swelling, no redness. Full ROM without limitation, no external traumatic findings. Skin: No rashes or lesions to visualized skin. Normal color, warm, and dry. Neuro: Cranial nerves II-XII intact and symmetrical bilaterally. 5/5 strength in all muscle groups x4 extremities. No sensory deficits. Ambulates with steady gait. Speech clear and typical per family member Psych: Appropriate for situation. Related Data Home Medications ?Medication ?Instructions ?Recorded ?Confirmed aspirin 81 mg chewable tablet 81 mg PO DAILY 11/11/17 10/13/23 ascorbic acid (vitamin C) 500 mg 500 mg PO DAILY 06/30/18 10/13/23 capsule cholecalciferol (vitamin D3) 25 1,000 unit PO DAILY 06/30/18 10/13/23 mcg (1,000 unit) capsule multivitamin,[id number] 1 tab PO DAILY 06/30/18 10/13/23 (Complete Multivitamin tablet) omega-3 fatty acids 1,000 mg 1,000 mg PO DAILY 06/30/18 10/13/23 capsule vitamin B complex (B 1 tab PO DAILY 06/30/18 10/13/23 Complex-Vitamin B12 tablet) magnesium oxide 500 mg capsule 500 mg PO DAILY 08/29/20 10/13/23 turmeric root extract 500 mg 1,000 mg PO DAILY 03/28/21 10/13/23 capsule citalopram 10 mg tablet 10 mg PO DAILY #30 tabs 07/03/22 10/13/23 varicella-zoster glycoE [id number] 0.5 ml IM ONCE #1 ea 07/18/22 10/13/23 adj(PF) 50 mcg/0.5 mL IM susp, kit (Shingrix (PF)) ibuprofen 200 mg capsule 200 mg PO Q6H PRN 10/06/22 10/13/23 acetaminophen 325 mg capsule 325 mg PO Q6H PRN 01/05/23 10/13/23 melatonin 10 mg capsule 10 mg PO HS PRN 01/05/23 10/13/23 naproxen 500 mg tablet 500 mg PO BID PRN pain #60 tabs 01/13/23 10/13/23 clobetasol 0.05 % topical ointment 1 applic topical bid PRN lichen 03/23/23 10/13/23 sclerosis #30 grams atorvastatin 40 mg tablet 40 mg PO DAILY #90 tab-caps 10/13/23 10/13/23 biotin 5 mg capsule 10 mg PO DAILY 10/13/23 10/13/23 losartan 50 mg tablet 50 mg PO DAILY #90 tabs 10/13/23 10/13/23 metformin 500 mg tablet 500 mg PO HS #90 tabs 10/13/23 10/13/23 omeprazole 40 mg capsule,delayed 40 mg PO HS #90 caps 10/13/23 10/13/23 release allopurinol 300 mg tablet 300 mg PO DAILY #90 tabs 10/26/23 fluoxetine 20 mg capsule 20 mg PO DAILY #90 caps 10/26/23 metoprolol tartrate 100 mg tablet 100 mg PO BID #180 tabs 10/26/23 Previous Rx's ?Medication ?Instructions ?Recorded citalopram 10 mg tablet 10 mg PO DAILY #30 tabs 07/03/22 varicella-zoster glycoE [id number] 0.5 ml IM ONCE #1 ea 07/18/22 adj(PF) 50 mcg/0.5 mL IM susp, kit (Shingrix (PF)) naproxen 500 mg tablet 500 mg PO BID PRN pain #60 tabs 01/13/23 clobetasol 0.05 % topical ointment 1 applic topical bid PRN lichen 03/23/23 sclerosis #30 grams atorvastatin 40 mg tablet 40 mg PO DAILY #90 tab-caps 10/13/23 losartan 50 mg tablet 50 mg PO DAILY #90 tabs 10/13/23 metformin 500 mg tablet 500 mg PO HS #90 tabs 10/13/23 omeprazole 40 mg capsule,delayed 40 mg PO HS #90 caps 10/13/23 release allopurinol 300 mg tablet 300 mg PO DAILY #90 tabs 10/26/23 fluoxetine 20 mg capsule 20 mg PO DAILY #90 caps 10/26/23 metoprolol tartrate 100 mg tablet 100 mg PO BID #180 tabs 10/26/23 Allergies Allergy/AdvReac Type Severity Reaction Status Date / Time adhesive Allergy Other (See Verified 11/06/23 21:19 Comment) codeine AdvReac Intermediate VOMITING Verified 11/06/23 21:19 YENIFER Inhibitors AdvReac Unknown COUGH Verified 11/06/23 21:19 Fluroqueinolones AdvReac Intermediate Tendonitis Uncoded 11/06/23 21:19 General Stated Complaint: [id number] BRADEN: 2 Course Vital Signs Vital signs: Vital Signs Temperature 36.3 C L 11/06/23 21:01 Pulse 56 L 11/06/23 21:01 Respiratory Rate 16 11/06/23 21:01 Blood Pressure 121/66 11/06/23 21:01 Pulse Oximetry 97 11/06/23 21:01 Temperature 36.3 C L 11/06/23 21:01 Temperature Source Temporal Artery Scan 11/06/23 21:01 Pulse 56 L 11/06/23 21:01 Respiratory Rate 16 11/06/23 21:15 Respiratory Effort Normal, Non-Labored 11/06/23 21:15 Respiratory Depth Normal 11/06/23 21:15 Respiratory Pattern Normal 11/06/23 21:15 Blood Pressure 121/66 11/06/23 21:01 Blood Pressure Position Sitting 11/06/23 21:01 Pulse Oximetry 97 11/06/23 21:01 Oxygen Delivery Method Room Air 11/06/23 21:01 Oxygen Flow Rate 0 11/06/23 21:01 Pain Level 0 11/06/23 21:01 Lab/Test Results Lab/Test Results: Laboratory Tests Range/Units 11/06/23 21:22 WBC (4.4-10.8) 10^3/uL 5.08 RBC (3.93-5.22) 10^6/uL 4.12 Hgb (11.2-15.7) g/dL 13.9 Hct (36.0-46.0) % 42.3 MCV (80-95) fL 103 H MCH (27.0-33.0) pg 33.7 H MCHC (32.0-36.0) % 32.9 RDW (11.7-14.6) % 13.7 Plt Count (130-400) 10^3/uL 167 MPV (8.0-11.0) fL 9.0 Immature Gran % % 0.2 Neutrophils % % 62.5 Lymphocytes % % 22.0 Monocytes % % 10.2 Eosinophils % % 4.3 Basophils % % 0.8 Nucleated RBC % (0.0-0.3) % 0.0 Absolute Neutrophils (1.2-6.7) 10^3/uL 3.17 Absolute Lymphocytes (1.2-3.4) 10^3/uL 1.12 L Absolute Monocytes (0.1-0.8) 10^3/uL 0.52 Absolute Eosinophils (0.0-0.7) 10^3/uL 0.22 Absolute Basophils (0.0-0.2) 10^3/uL 0.04 Medical Decision Making Quality:SDOH Health Related Social Needs: No Data to Display PFSH All Active Problems (Updated 11/06/23 @ 22:58 by Laura Rachel MD) CKD (chronic kidney disease) (Chronic) Syncope, vasovagal (Acute) Lumbar back pain with radiculopathy affecting lower extremity (Acute) Screen for colon cancer (Acute) Calcification of abdominal aorta (Acute) US 09/18/22: IMPRESSION: Heavily calcified abdominal aorta and iliac arteries. Slight dilatation of the distal abdominal aorta to 2.3 cm compared to 2 cm in the midportion. Dilatation of the left common iliac artery to 1.9 cm. 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 BPV (benign positional vertigo) Rash 11/2019 seen at [facility] [place]- lichen sclerosis Arthritis of right shoulder region 2019- replaced Rotator cuff tear, right Gout Hypertension Diabetes mellitus Depression Loose body of right shoulder Tendonitis of long head of biceps brachii of right shoulder Calcific shoulder tendinitis Low magnesium level Shoulder pain, right Vitreous degeneration (04/26/12) [facility]- yearly 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; 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,INVASIVE DUCTAL CA R mammos yearly 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 disease of colon (01/05/13) Acute myocardial infarction of inferior wall 1999, 2017-stent placement Surgical History History of colonoscopy (~12/2022) S/P Achilles tendon repair Ligation of fallopian tube Extraction of cataract left 2002; right 2003 Breast, Lumpectomy (~2004) Family History (Updated 10/21/23 @ 15:39 by Naye Archuleta) Mother , 81 Hyperlipidemia Dementia Father , 63 Diabetes Heart disease Stroke Hyperlipidemia Sister , 54 Neoplasm LUNG Maternal Grandfather Rheumatic fever Paternal Grandfather Neoplasm PROSTATE Cancer Maternal Grandmother Stroke Paternal Grandmother Heart disease Hypertension Son Alcohol abuse Heart disease Daughter No problems noted. Social History (Updated 10/21/23 @ 15:34 by Naye Archuleta) Smoking/Tobacco Use Status: Former Tobacco Use tobacco type: cigarettes Quit Date: 03/16/99 Tobacco: How many years used: 33 Second Hand Exposure: No Smoking risk assessment performed?: Yes Alcohol Intake: never Drug use: Current Sobriety Substance use type: marijuana Details: no alcohol for 30 years Caregiver/Support person: No Household members: spouse, children and other Details: H-Jose. 37yrs. S- Lucas Bonilla, Erick Colon. Housing: house Number of Children: 2 Communication Needs: None Do you need help understanding health information?: Never current occupation: retired, [employer] [place] [employer]. Pets and animals: Yes Pets and animals: cat(s) and dog(s) Sexually active: No Do you think of yourself as: straight/heterosexual Current gender identity: female What is your relationship status?: How often do you talk on the phone with friends or family?: decline to answer How often do you get together with friends or relatives?: decline to answer How often do you attend christian or religion services?: decline to answer Do you belong to any clubs or organized social groups?: no Panel score (0-1 are the most socially isolated patients): 1 What type of physical activity do you participate in: walking Duration: < 15 minutes/day Frequency: 1-2 times per week Caitie/Alevism: No preference Special caitie needs: No Seatbelt use: always Helmet use: Yes Helmet use: other Details: When needed Drive intox or ride w/intox car driver: No Do you feel safe at home: Yes Do you feel safe in your relationship?: Yes History History 3 Para Hx # Term Pregnancies 2 Multiple births Hx # Pregnancies Ectopic pregnancies 1 AB induced Hx Number of Living Children AB spontaneous
[2023-11-06 21:54] LABS: ALT 28 U/L (14-59); AST 22 U/L (15-37); Albumin 3.6 g/dL (3.4-5.0); Alkaline Phosphatase 133 U/L (46-116); Anion Gap 7.9 mmol/L (3-11); BUN 42 mg/dL (7-18); Bilirubin, Total 0.66 mg/dL (0.2-1.0); CO2 27.1 mmol/L (21.0-32.0); CREATININE 1.5 mg/dL (0.55-1.02); Calcium 10.3 mg/dL (8.5-10.1); Chloride 104 mmol/L (98-107); Estimated GFR 36.34 (mL/min/1.73m2); Glucose 121 mg/dL (74-106); Magnesium 1.7 mg/dL (1.8-2.4); Potassium 4.1 mmol/L (3.5-5.1); Sodium 139 mmol/L (136-145); Total Protein 7.3 g/dL (6.4-8.2); Troponin I < 50 ng/L (< or =60)
== END 2023-11-06 23:02 | disposition home or self-care (01) ==
PROVIDERS: Emergency Provider Emergency Medicine; PCP Nurse Practitioner Family
DX: R55 Syncope and collapse (principal); E78.5 Hyperlipidemia, unspecified; I25.10 Atherosclerotic heart disease of native coronary artery without angina pectoris; E11.22 Type 2 diabetes mellitus with diabetic chronic kidney disease; I10 Essential (primary) hypertension; N18.9 Chronic kidney disease, unspecified
CPT/HCPCS: 36415; 80053; 93005; 96360; 99284; 83735; 84484; 85025; 93010

== ENCOUNTER 2023-11-11 14:07 | Outpatient (CLI) | payer OTHER, SELFPAY ==
[2023-11-11 13:50] LABS: Anion Gap 6.6 mmol/L (3-11); BUN 35 mg/dL (7-18); CO2 29.4 mmol/L (21.0-32.0); CREATININE 1.2 mg/dL (0.55-1.02); Calcium 9.9 mg/dL (8.5-10.1); Chloride 103 mmol/L (98-107); Glucose 106 mg/dL (74-106); Potassium 4.8 mmol/L (3.5-5.1); Sodium 139 mmol/L (136-145)
== END 2023-11-11 14:08 | disposition home or self-care (01) ==
LOC: LBO 14:08
PROVIDERS: PCP Nurse Practitioner Family; Visit Provider Nurse Practitioner Family
DX: I10 Essential (primary) hypertension (principal)
CPT/HCPCS: 36415; 80048

== ENCOUNTER 2023-11-25 02:15 | Outpatient (CLI) | payer OTHER, SELFPAY ==
--- NOTE | 2023-11-25 | DI.CT_ITS ---
Exam(s) CT ABDOMEN PELVIS W EXAM: CT ABDOMEN PELVIS W CLINICAL HISTORY: HIGH GRADE ENOMETRIAL STROMAL SARCOMA, C54.1. TECHNIQUE: Imaging Protocol: Axial computed tomography images with coronal and sagittal reformatted images were created and reviewed CONTRAST MATERIAL: Intravenous: Omnipaque 350 Contrast volume:100 ml Oral: yes / COMPARISON: CT CT CHEST/ABD/PEL W from 10/02/2022 FINDINGS: ABDOMEN and PELVIS: Lung Bases: No acute findings. Liver: Normal density. No suspicious mass. Gallbladder and biliary tract: Cholelithiasis. No biliary dilation. Pancreas: Normal density. No abnormal calcifications or inflammatory process. No evidence of mass. Spleen: Normal. Kidneys: Normal size, contour and axis. Tiny nonobstructing stone lower pole left kidney. No obstru ctive uropathy. No suspicious masses seen. Adrenal glands: No masses seen. Vasculature: Abdominal aorta non-dilated. Atherosclerotic changes. Soft tissues: Unremarkable. Bladder: No gross wall thickening. No calculi.No focal mass. Bowel: No obstruction. No bowel wall thickening. Mild diverticulosis. Moderate to increased quant ity of stool. Peritoneal cavity: No ascites. No focal collection. No mesenteric inflammatory response. Bones: Unremarkable for age. Reproductive organs: Status post hysterectomy. Lymph nodes: No pathologically enlarged lymph nodes. IMPRESSION:: No evidence of metastatic disease or other acute abnormality in the abdomen or pelvis. RADIATION DOSE DELIVERED: 732.69mGy.cm Total DLP DATA REPOSITORY: All CT scans at this facility are submitted to the National Radiology Data Registry (NRDR) Dose Index Registry (DIR) with the [employer] (ACR). RADIATION OPTIMIZATION: All CT scans at this facility use at least one of these dose optimization te chniques: automated exposure control; mA and/or kV adjustment per patient size (includes targeted exa ms where dose is matched to clinical indication); or iterative reconstruction.
[2023-11-25 07:36] LABS: CREATININE 1.3 mg/dL (0.55-1.02); Estimated GFR 43.15 (mL/min/1.73m2)
[2023-11-25] MEDS: Barium Sulfate 2% W/V-Berry Smoothie 450 ML BTL PO ×2 (08:04→08:05)
[2023-11-25] MEDS: Normal Saline - Diluent 50 ML VIAL IJ (09:04)
[2023-11-25] MEDS: Omnipaque 350 MG/ML 100 ML BTL IJ (09:05)
== END 2023-11-25 02:35 ==
PROVIDERS: PCP Nurse Practitioner Family; Visit Provider Obstetrics & Gynecology Gynecologic Oncology
DX: C54.1 Malignant neoplasm of endometrium (principal)
CPT/HCPCS: 74177; 82565; J3490

== ENCOUNTER → 2024-07-19 09:40 | Outpatient (BNVA) | payer MEDICARE, SELFPAY | PROVIDERS: PCP Nurse Practitioner Family; Visit Provider Internal Medicine Cardiovascular Disease | DX: I25.10 Atherosclerotic heart disease of native coronary artery without angina pectoris (principal) | CPT/HCPCS: 99213 ==

== ENCOUNTER 2024-10-31 04:21 | Outpatient (CLI) | payer MEDICARE, SELFPAY ==
[2024-10-31 12:41] LABS: Hemoglobin A1C 5.7 % (<5.7)
[2024-10-31 13:13] LABS: ALT 24 U/L (14-59); AST 19 U/L (15-37); Albumin 3.6 g/dL (3.4-5.0); Alkaline Phosphatase 158 U/L (46-116); Anion Gap 7.8 mmol/L (3-11); BUN 41 mg/dL (7-18); Bilirubin, Total 0.5 mg/dL (0.2-1.0); CO2 29.2 mmol/L (21.0-32.0); Calcium 10.0 mg/dL (8.5-10.1); Calculated LDL 75 mg/dL (<100); Chloride 103 mmol/L (98-107); Cholesterol 144 mg/dL (<200); Estimated GFR 39.23 (mL/min/1.73m2); Glucose 119 mg/dL (74-106); HDL Cholesterol 43 mg/dL (>or=50); Potassium 4.9 mmol/L (3.5-5.1); Sodium 140 mmol/L (136-145); Total Protein 6.9 g/dL (6.4-8.2); Triglyceride 131 mg/dL (<150)
== END 2024-10-31 04:22 | disposition home or self-care (01) ==
LOC: LOS 04:21
PROVIDERS: PCP Nurse Practitioner Family; Visit Provider Nurse Practitioner Family
DX: F32.9 Major depressive disorder, single episode, unspecified (principal); I10 Essential (primary) hypertension; I25.10 Atherosclerotic heart disease of native coronary artery without angina pectoris; E78.5 Hyperlipidemia, unspecified; E11.9 Type 2 diabetes mellitus without complications; M10.9 Gout, unspecified
CPT/HCPCS: 36415; 80053; 80061; 83036

== ENCOUNTER 2024-11-02 02:19 | Outpatient (CLI) | payer MEDICARE, SELFPAY ==
--- NOTE | 2024-11-02 07:45 | DI.DEXA_ITS ---
Exam(s) XR DEXA BONE DENSITY W/WO KISHOR EXAM: XR DEXA BONE DENSITY W/WO KISHOR CLINICAL HISTORY: screening,menopausal disorder,n95.9 TECHNIQUE: [employer] C densitometer analysis of left hip, lumbar spine and right forearm. Lateral survey image of the thoracic and lumbar spine. COMPARISON: DX KISHOR from 09/30/2007 MR MR LUMBAR SPINE WO from 10/28/2022 FINDINGS: Lateral view of the thoracic and lumbar spine shows no evidence of compression fractures. There is now levoscoliosis and degenerative disc changes at L2-3 with sclerotic endplates. This is likely the cause of the increased bone density compared with the prior exam. Bone mineral density measurements of the lumbar spine correspond to a total T- score of 1.8, in the normal range. This represents a 7.3 percent increase from 2008. Bone mineral density measurements of the left hip correspond to a total T-score of 0.2. This represents a 12.3 percent decrease from 2008. The femoral neck T-score is -1.0, at the lower range of normal. Theright forearm bone mineral density measurements correspond to a T-score of the distal 3rd of -2.5, in the osteoporotic range. The forearm was not analyzed in 2007. IMPRESSION: Normal bone density of the lumbar spine and hip. Osteoporosis of the forearm.
== END 2024-11-02 02:39 ==
LOC: DI 02:19
PROVIDERS: PCP Nurse Practitioner Family; Visit Provider Nurse Practitioner Family
DX: N95.9 Unspecified menopausal and perimenopausal disorder (principal); M81.0 Age-related osteoporosis without current pathological fracture
CPT/HCPCS: 77080

== ENCOUNTER 2024-11-11 00:36 | Outpatient (CLI) | payer MEDICARE, SELFPAY ==
--- NOTE | 2024-11-11 11:17 | DI.MAMMO_ITS ---
Exam(s) MG MAMMO SCREENING 60 MIN DUR EXAM: MG MAMMO SCREENING 60 MIN DUR CLINICAL HISTORY: breast cancer screening,BREAST CA,C50.919. TECHNIQUE: Bilateral full field digital CC and MLO mammographic images were obtained with 3D tomosynthesis and utilizing computer aided detection (CAD). COMPARISON: Prior mammograms were reviewed. Patient underwent right breast lumpectomy for malignancy in 2005 FINDINGS: There has been no significant change in the appearance and distribution of the fibroglandular tissue. Right breast lumpectomy site with dystrophic calcification remains stable. Asymmetric density posteriorly in the right breast is also unchanged. In the left breast there is a small nodule at 6 o'clock position which is stable from at least 2016 and therefore benign. There are no new spiculated masses nor new malignant-appearing microcalcification groups in either breast. IMPRESSION: No radiographic evidence of malignancy. Stable benign-appearing findings. Stable right breast lumpectomy site. BI-RADS Category 2 - Benign Findings Breast Density - Category B - There are scattered areas of fibroglandular density. Breast density Category C or D implies that the patient has dense breast tissue. Dense breast tissue can make it harder to find cancer on a mammogram. Dense breast tissue is also associated with an increased risk of breast cancer. This information about the result of the mammogram report was provided to the patient to raise their awareness. Use this report when you speak with the patient about their risks for breast cancer, which includes their family history. At that time, you may recommend additional screening tests (Ultrasound or MRI) as these tests may add significant information. A negative radiographic report should not delay biopsy if a dominant or clinically suspicious mass is present. Up to ten percent of cancers are not identified on mammography. A negative report may reinforce clinical impression. Adenosis and dense breasts may obscure an underlying neoplasm. False positive reports average 6 to 10%. Patient will receive a letter notifying them of these results.
== END 2024-11-11 00:56 ==
LOC: DI 00:37
PROVIDERS: PCP Nurse Practitioner Family; Visit Provider Nurse Practitioner Family
DX: C50.919 Malignant neoplasm of unspecified site of unspecified female breast (principal); Z12.31 Encounter for screening mammogram for malignant neoplasm of breast; R92.323 Mammographic fibroglandular density, bilateral breasts
CPT/HCPCS: 77063; 77067